=== PATIENT | female | born 1935 | race Two or more races ===

== ENCOUNTER 2024-02-18 11:28 | Inpatient (IN) | payer BC ==
[~2024-02-18] VITALS: Ht 157.5 cm; Wt 62.0 kg
[2024-02-18 12:22] LABS: Basophils # (auto) 0.1 10 ^3/uL (0-0.2); Basophils % (auto) 1.1 % (0.0-2.0); Eosinophils # (auto) 0.1 10 ^3/uL (0-0.8); Eosinophils % (auto) 2.1 % (0.0-7.0); Hematocrit 39.2 % (36.0-46.0); Hemoglobin 12.9 g/dL (12.2-16.2); Lymphocytes # (auto) 1.4 10 ^3/uL (0.4-5.4); Lymphocytes % (auto) 21.5 % (10.0-50.0); Mean Corpuscular Hemoglobin 29.5 pg (28.0-32.0); Mean Corpuscular Hgb Conc. 32.8 g/dL (32.0-36.0); Mean Corpuscular Volume 89.9 fL (80.0-100.0); Monocytes # (auto) 0.5 10 ^3/uL (0-1.3); Monocytes % (auto) 8.4 % (0.0-12.0); Neutrophils # (auto) 4.4 10 ^3/uL (1.6-8.6); Neutrophils % (auto) 66.9 % (37.0-80.0); Red Blood Cells 4.37 10^6/uL (4.0-5.20); Red Cell Distribution Width 14.3 % (11.8-14.3); White Blood Cell 6.6 10^3/uL (4.4-10.8)
[2024-02-18] MEDS: ASPirin 325 MG TAB PO ONE (12:32)
[2024-02-18 12:40] LABS: Alanine Aminotransferase 14 U/L (7-40); Albumin 4.3 g/dL (3.2-4.8); Alkaline Phosphatase 62 U/L (46-116); Anion Gap 4 (5-15); Aspartate Aminotransferase 21 U/L (13-40); BUN/Creatinine Ratio 16.1 (10.0-20.0); Bilirubin, Total 0.3 mg/dL (0.2-1.0); Blood Urea Nitrogen 27 mg/dL (9-23); Calcium 9.2 mg/dL (8.5-10.1); Carbon Dioxide 29 mmol/L (20-30); Chloride 100 mmol/L (98-107); Glucose 134 mg/dL (74-106); Potassium 3.8 mmol/L (3.5-5.1); Sodium 133 mmol/L (136-145); Total Protein 7.5 g/dL (5.7-8.2)
[2024-02-18] MEDS ORDERED: CARV-217 PO (13:27)
[2024-02-18] MEDS ORDERED: DICL1GEL73 TOP (13:27)
[2024-02-18] MEDS ORDERED: EMPA1TAB PO (13:27)
[2024-02-18] MEDS ORDERED: HYDR25TA5 PO (13:27)
[2024-02-18] MEDS ORDERED: OXYB5TAB14 PO (13:27)
[2024-02-18] MEDS ORDERED: MORPHINE SULFATE INJ 2 MG/ml SYRG IV PRN (13:30)
[2024-02-18] MEDS ORDERED: ACETAMINOPHEN 325 MG TAB PO PRN (13:30)
[2024-02-18] MEDS ORDERED: NITROGLYCERIN 0.4 MG SL TAB SL PRN (13:30)
[2024-02-18 13:41] LABS: Triglycerides 178 mg/dL (< 150)
[2024-02-18 13:42] LABS: LDL Cholesterol 134 mg/dL (< 100)
[2024-02-18 13:43] LABS: Cholesterol 196 mg/dL (< 200); HDL Cholesterol 46 mg/dL (40-59)
[2024-02-18] MEDS: SODIUM CHLORIDE 0.9% 1,000 ML IV SCH (16:35)
[2024-02-18] MEDS: DICLOFENAC SODIUM 2% TOP SCH (18:00)
[2024-02-18 18:32] LABS: Urine Bacteria None Seen /hpf (None Seen)
[2024-02-18 18:59] LABS: Urine Blood Negative /uL (Negative); Urine Clarity Clear (Clear); Urine Color Light-Yellow (Yellow); Urine Protein, UAD Negative (Negative); Urine Specific Gravity 1.013 (1.001-1.035); Urine Urobilinogen Normal (Negative); Urine WBC <1 /hpf (0 - 5); Urine pH 5.5 (5.0-9.0)
[2024-02-18] MEDS ORDERED: LORazepam 2MG/ML-1ML VIAL IV PRN (21:30)
[2024-02-18] MEDS: ATORVASTATIN 20 MG TAB PO SCH (21:30)
[2024-02-18] MEDS: CARVEDILOL 12.5 MG TAB PO SCH (21:31)
[2024-02-18] MEDS: HEPARIN SODIUM (PORCINE) 5000 UNITS/ML 1ML VIAL SC SCH (21:32)
[2024-02-18 23:04] VITALS: BP 163/52; PULSE 60; RESP 18; TEMP 97.9; O2SAT 98
[2024-02-19] VITALS (8 sets, daily range): BP systolic 108–165; BP diastolic 34–59; PULSE 57–74; RESP 16–18; TEMP 97.4–98.3; O2SAT 95–99
[2024-02-19] MEDS: hydrALAZINE HCL 20 MG/ML VL IV PRN (01:32)
[2024-02-19 06:48] LABS: Basophils # (auto) 0.1 10 ^3/uL (0-0.2); Eosinophils # (auto) 0.2 10 ^3/uL (0-0.8); Eosinophils % (auto) 3.3 % (0.0-7.0); Lymphocytes # (auto) 1.3 10 ^3/uL (0.4-5.4); Lymphocytes % (auto) 24.2 % (10.0-50.0); Mean Corpuscular Hgb Conc. 33.3 g/dL (32.0-36.0); Mean Corpuscular Volume 90.3 fL (80.0-100.0); Monocytes # (auto) 0.5 10 ^3/uL (0-1.3); Monocytes % (auto) 10.5 % (0.0-12.0); Neutrophils # (auto) 3.2 10 ^3/uL (1.6-8.6); Nucleated Red Blood Cells % 0.1 %; Red Blood Cells 3.99 10^6/uL (4.0-5.20); Red Cell Distribution Width 14.5 % (11.8-14.3); White Blood Cell 5.2 10^3/uL (4.4-10.8)
[2024-02-19 07:04] LABS: Alkaline Phosphatase 50 U/L (46-116); Anion Gap 7 (5-15); BUN/Creatinine Ratio 17.7 (10.0-20.0); Blood Urea Nitrogen 28 mg/dL (9-23); Calcium 8.6 mg/dL (8.5-10.1); Carbon Dioxide 25 mmol/L (20-30); Chloride 104 mmol/L (98-107); Glucose 114 mg/dL (74-106); Potassium 3.4 mmol/L (3.5-5.1); Sodium 136 mmol/L (136-145)
[2024-02-19 07:05] LABS: Albumin 3.6 g/dL (3.2-4.8); Aspartate Aminotransferase 18 U/L (13-40)
[2024-02-19 07:06] LABS: Alanine Aminotransferase < 9 U/L (7-40); Bilirubin, Total 0.2 mg/dL (0.2-1.0); Total Protein 6.3 g/dL (5.7-8.2)
[2024-02-19] MEDS: ASPirin 81 mg TAB PO SCH (12:09)
[2024-02-19] MEDS: EMPAGLIFLOZIN 10 MG TAB PO SCH (12:26)
[2024-02-19] MEDS: hydroCHLOROthiazide 25 MG TAB PO SCH (12:27)
[2024-02-19] MEDS: OXYBUTYNIN CHL 5 MG TAB PO SCH (16:11)
[2024-02-20] VITALS (8 sets, daily range): BP systolic 133–166; BP diastolic 40–55; PULSE 60–76; RESP 16–20; TEMP 98.1–98.9; O2SAT 93–98
[2024-02-20 05:43] LABS: Anion Gap 6 (5-15); Calcium 9.1 mg/dL (8.7-10.4); Carbon Dioxide 25 mmol/L (20-30); Chloride 102 mmol/L (98-107); Potassium 3.9 mmol/L (3.5-5.1); Sodium 133 mmol/L (136-145)
[2024-02-20 05:44] LABS: Basophils # (auto) 0.1 10 ^3/uL (0-0.2); Eosinophils # (auto) 0.2 10 ^3/uL (0-0.8); Eosinophils % (auto) 3.3 % (0.0-7.0); Hematocrit 35.7 % (36.0-46.0); Hemoglobin 11.8 g/dL (12.2-16.2); Lymphocytes # (auto) 1.5 10 ^3/uL (0.4-5.4); Lymphocytes % (auto) 27.1 % (10.0-50.0); Mean Corpuscular Hemoglobin 29.7 pg (28.0-32.0); Mean Corpuscular Hgb Conc. 32.9 g/dL (32.0-36.0); Mean Corpuscular Volume 90.2 fL (80.0-100.0); Monocytes # (auto) 0.6 10 ^3/uL (0-1.3); Monocytes % (auto) 10.9 % (0.0-12.0); Neutrophils # (auto) 3.1 10 ^3/uL (1.6-8.6); Neutrophils % (auto) 57.7 % (37.0-80.0); Nucleated Red Blood Cells % 0.1 %; Red Blood Cells 3.96 10^6/uL (4.0-5.20); Red Cell Distribution Width 14.2 % (11.8-14.3); White Blood Cell 5.4 10^3/uL (4.4-10.8)
[2024-02-20 05:50] LABS: BUN/Creatinine Ratio 17.2 (10.0-20.0); Blood Urea Nitrogen 28 mg/dL (9-23); Glucose 131 mg/dL (74-106)
[2024-02-20] MEDS ORDERED: ATOR40TA52 PO (09:21)
[2024-02-20] MEDS ORDERED: ASPI-325 PO (09:21)
== END 2024-02-20 12:11 | disposition home or self-care (01) | DRG 67 ==
LOC: ER 11:28 → TELE 13:30 → TELE-WESTW 13:30
PROVIDERS: ADMIT Nurse Practitioner Family; ATTEND Nurse Practitioner Family
DX: I65.21 Occlusion and stenosis of right carotid artery (principal); N17.0 Acute kidney failure with tubular necrosis; I11.0 Hypertensive heart disease with heart failure; I50.9 Heart failure, unspecified; F17.200 Nicotine dependence, unspecified, uncomplicated; E11.65 Type 2 diabetes mellitus with hyperglycemia; F45.9 Somatoform disorder, unspecified; Z79.899 Other long term (current) drug therapy; Z88.0 Allergy status to penicillin; Z95.810 Presence of automatic (implantable) cardiac defibrillator; Z79.82 Long term (current) use of aspirin; Z83.3 Family history of diabetes mellitus
CPT/HCPCS: 36415; 70450; 71045; 80048; 80053; 80061; 81001; 82962; 83036; 83735; 83930; 84443; 84484; 85025; 93005; 93886; 95819; 97110; 97116; 97163; G0378

== ENCOUNTER 2025-04-16 17:23 | Inpatient (IN) | payer BC, MEDICARE, OTHER ==
[~2025-04-16] VITALS: Ht 154.9 cm; Wt 57.7 kg
[~2025-04-16 17:23] MED LIST: ASPI-325 PO; ATOR40TA52 PO; CARV-217 PO; DICL1GEL73 TOP; EMPA1TAB PO; HYDR25TA5 PO; OXYB5TAB14 PO
[2025-04-16] MEDS: SODIUM CHLORIDE 0.9% 500 ML IV ONE (17:45)
--- NOTE | 2025-04-16 17:47 | ED.PDOC ---
History of Present Illness HPI Comments 89-year-old female who comes in with the chief complaint off bilateral flank pain. The patient denies any lysis diarrhea but the patient's is having a vomiting. The patient denies any dysuria or hematuria. The patient also denies any fever or chills. The patient states that the pain is in the bilateral flank area and has been going on for 1 week but worsened over the past 3 days. She is having some constipation and states that she did have a bowel movement with no significant relief of pain. The patient states that the pain as a 7/10. She was able to ambulate into the emergency department without any difficulty. Chief Complaint: Flank Pain Time Seen by MD: 17:26 Primary Care Provider: Jadiel Robertson Notes: Nurses Notes, Medications, Allergies (Allergies to penicillin) Allergies: Coded Allergies: Penicillins (Verified Allergy, Unknown, 02/18/24) Home Meds Active Scripts Atorvastatin Calcium (ATORVASTATIN CALCIUM) 40 Mg Tab, 40 MG PO DAILY for 90 Days, #90 TAB Prov:ALYSHA PIÑA MD 02/20/24 Aspirin (Aspirin Low Dose) 81 Mg Tab, 81 MG PO DAILY for 90 Days, #90 TAB Prov:ALYSHA PIÑA MD 02/20/24 Reported Medications Diclofenac Sodium (Topical) (Diclofenac Sodium) 1 % Gel, 1 APPLIC TOP QID 02/18/24 Oxybutynin Chloride (Oxybutynin Chloride) 5 Mg Tab, 1 TAB PO DAILY 02/18/24 Hctz (Hydrochlorothiazide) 25 Mg Tab, 1 TAB PO DAILY 02/18/24 Carvedilol (Coreg) 25 Mg Tab, 1 TAB PO BID 02/18/24 Empagliflozin (Jardiance) 10 Mg Tab, 1 TAB PO DAILY 02/18/24 Information Source: Patient Mode of Arrival: Ambulatory Severity: Moderate Timing: Days Duration: Since onset Prehospital treatment: None Location: Bilateral flank pain Past Medical History PAST MEDICAL HISTORY: DM, HTN Surgical History: Hysterectomy, Pacemaker, Tonsillectomy HOT KNIFE CUTTER History: Denies all HOT KNIFE CUTTER Hx Family History Family History: No family hx of Cancer, No family hx of DM, No family hx of Heart keeley Social History Smoker: Non-Smoker Alcohol: Denies ETOH Use Drugs: Denies Drug Use Lives In: Home Constitutional: reports: weakness; denies: chills, diaphoresis, fatigue, fever, malaise, sweats, others EENTM: denies: blurred vision, double vision, ear bleeding, ear discharge, ear drainage, ear pain, ear ringing, eye pain, eye redness, hearing loss, mouth pain, mouth swelling, nasal discharge, nose bleeding, nose congestion, nose pain, photophobia, tearing, throat pain, throat swelling, voice changes, others Respiratory: denies: cough, hemoptysis, orthopnea, SOB at rest, shortness of breath, SOB with excertion, stridor, wheezing, others Cardiovascular: denies: chest pain, dizzy spells, diaphoresis, Dyspnea on exertion, edema, irregular heart beat, left arm pain, lightheadedness, palpitations, PND, syncope, others Gastrointestinal: denies: abdomen distended, abdominal pain, blood streaked bowels, constipated, diarrhea, dysphagia, difficulty swallowing, hematemesis, melena, nausea, poor appetite, poor fluid intake, rectal bleeding, rectal pain, vomiting, others Genitourinary: reports: flank pain; denies: abnormal vagina bleeding, burning, dyspareunia, dysuria, frequency, hematuria, incontinence, pain, , vagina discharge, urgency, others Neurological: denies: dizziness, fainting, headache, left sided numbness, left sided weakness, numbness, paresthesia, pre-existing deficit, right sided numbness, right sided weakness, seizure, speech problems, tingling, tremors, weakness, others Musculoskeletal: denies: back pain, gout, joint pain, joint swelling, muscle pain, muscle stiffness, neck pain, others Integumetry: denies: bruises, change in color, change in hair/nails, dryness, laceration, lesions, lumps, rash, wounds, others Allergic/Immunocompromised: denies: Difficulty Healing, Frequent Infections, Hives, Itching, others Hematologic/Lymphatic: denies: anemia, blood clots, easy bleeding, easy bruising, swollen glands, others Endocrine: denies: excessive hunger, excessive sweating, excessive thirst, excessive urination, flushing, intolerance to cold, intolerance to heat, unexplained weight gain, unexplained weight loss, others Psychiatric: denies: anxiety, bipolar disorder, depression, hopeless, panic disorder, schizophrenia, sleepless, suicidal, others Physical Exam General Appearance: Moderate Distress HEENT: Normal ENT Inspection, Pharynx Normal, TMs Normal Neck: Full Range of Motion, Non-Tender, Normal, Normal Inspection Respiratory: Chest Non-Tender, Lungs Clear, No Accessory Muscle Use, No Respiratory Distress, Normal Breath Sounds Cardiovascular: No Edema, No JVD, No Murmur, No Gallop, Normal Peripheral Pulses, Regular Rate/Rhythm Breast Exam: Deferred Gastrointestinal: No Organomegaly, Non Tender, No Pulsatile Mass, Normal Bowel Sounds, Soft Genitalia: Deferred Pelvic: Deferred Rectal: Deferred Extremities: No calf tenderness, Normal capillary refill, Normal inspection, Normal range of motion, Non-tender, No pedal edema Musculoskeletal : Location: Bilateral Extremity Location: Back Apperance: Limited ROM, Tenderness: Moderate Neurologic: Alert, replenishment specialist II-XII nml as Tested, No Motor Deficits, Normal Affect, Normal Mood, No Sensory Deficits Cerebellar Function: Normal Reflexes: Normal Skin: Dry, Normal Color, Warm Lymphatic: No Adenopathy Was a procedure done? Was a procedure done?: No Differential Dx Considerations may include: Kidney stones, UTI, generalized weakness, musculoskeletal pain X-Ray, Labs, Meds, VS Vital Signs Date Time Temp Pulse Resp B/P (MAP) Pulse Ox O2 Delivery O2 Flow Rate FiO2 04/16/25 19:22 96 Room Air* 0 21 04/16/25 18:42 62 18 135/80 (98) 96 04/16/25 18:42 62 18 98 Room Air 04/16/25 17:40 98.7 61 16 168/61 (96) 97 98.7 Lab Test 04/16/25 17:55 04/16/25 17:53 04/16/25 17:38 Range/Units Urine Color Colorless Yellow Urine Clarity Turbid H Clear Urine pH 6.0 5.0-9.0 Urine Specific [place] 1.015 1.001-1.035 Urine Protein Negative Negative Urine Ketones Negative Negative Urine Blood Negative Negative /uL Urine Nitrite Negative Negative Urine Bilirubin Negative Negative Urine Urobilinogen Normal Negative mg/dL Urine Leukocyte Esterase 3+ Negative /uL Urine RBC 4 0 - 4 /hpf Urine Microscopic WBC 571 H 0-5 /HPF Urine Squamous Epithelial Cells Few <5 /hpf Urine Bacteria Few H None Seen /hpf Urine Glucose 4+ H Normal mg/dL White Blood Count 8.0 4.4-10.8 10^3/uL Red Blood Count 4.51 4.0-5.20 10^6/uL Hemoglobin 13.4 12.2-16.2 g/dL Hematocrit 40.2 36.0-46.0 % Mean Corpuscular Volume 89.3 80.0-100.0 fL Mean Corpuscular Hemoglobin 29.8 28.0-32.0 pg Mean Corpuscular Hemoglobin Concent 33.4 32.0-36.0 g/dL Red Cell Distribution Width 14.5 H 11.8-14.3 % Platelet Count 266 140-450 10^3/uL Mean Platelet Volume 8.2 6.9-10.8 fL Neutrophils (%) (Auto) 73.2 37.0-80.0 % Lymphocytes (%) (Auto) 13.0 10.0-50.0 % Monocytes (%) (Auto) 12.5 H 0.0-12.0 % Eosinophils (%) (Auto) 0.8 0.0-7.0 % Basophils (%) (Auto) 0.5 0.0-2.0 % Neutrophils # (Auto) 5.8 1.6-8.6 10 ^3/uL Lymphocytes # (Auto) 1.0 0.4-5.4 10 ^3/uL Monocytes # (Auto) 1.0 0-1.3 10 ^3/uL Eosinophils # (Auto) 0.1 0-0.8 10 ^3/uL Basophils # (Auto) 0 0-0.2 10 ^3/uL Nucleated Red Blood Cells 0.0 % Sodium Level 132 L 136-145 mmol/L Potassium Level 3.0 L 3.5-5.1 mmol/L Chloride Level 97 L 98-107 mmol/L Carbon Dioxide Level 29 20-31 mmol/L Anion Gap 6 5-15 Blood Urea Nitrogen 41 H 9-23 mg/dL Creatinine 2.16 H 0.550-1.02 mg/dL Glomerular Filtration Rate Calc 21 >90 mL/min BUN/Creatinine Ratio 19.0 10.0-20.0 Serum Glucose 200 H 74-106 mg/dL Calcium Level 9.3 8.7-10.4 mg/dL POC Glucose 202 H 70-106 mg/dl Current Medications Medications (Trade) Dose Ordered Sig/Red Route Start Time Stop Time Status Last Admin Sodium Chloride 500 ml @ 500 mls/hr Q1H ONCE IV 04/16/25 17:45 04/16/25 18:44 DC 04/16/25 17:45 Ketorolac Tromethamine (Toradol Injection) 15 mg ONCE ONCE IV 04/16/25 17:45 04/16/25 17:46 DC 04/16/25 18:51 IV Hep-Lock was established. The patient was given a 500 cc bolus of normal saline while the patient was given Toradol 15 mg IV push CBC he was at home shows hypokalemia at 3.0 chloride of 70 mother stated At this time, began to get an abdomen and pelvis shows: IMPRESSION: Marked gallbladder distention. No sizable, radiopaque cholelithiasis identified. Ultrasound may be considered to further evaluate. Otherwise no bowel obstruction, free intraperitoneal air/fluid or sizable inflammatory collections identified on this noncontrast examination. The patient is being given potassium of the K rider online patient has been admitted Images Reviewed?: Images reviewed and evaluated by me Time of 1ST Reevaluation: 17:51 Reevaluation 1ST: Unchanged Patient Education/Counseling: Diagnosis, Treatment, Prognosis Family Education/Counseling: No Family Present Departure 1 Departure Time of Disposition: 20:35 Impression: Primary Impression: Intractable abdominal pain Additional Impressions: Cholelithiasis Qualified Codes: K80.20 - Calculus of gallbladder without cholecystitis without obstruction Hypokalemia Dehydration Disposition: 09 ADMITTED INPATIENT Admit to: [facility] Condition: Fair Critical Care Note Critical Care Time?: No Stability Stability form required: Yes Unstable for transfer: ED Physician Assesment (Clinical assesment) Heart Score Heart Score: Heart Score Response (Comments) Value History N/A 0 EKG N/A 0 Age N/A 0 Risk Factors N/A 0 Troponin N/A 0 Total 0 KELSI AIKEN MD Apr 16, 2025 17:47
[2025-04-16 18:10] LABS: Basophils # (auto) 0 10 ^3/uL (0-0.2); Basophils % (auto) 0.5 % (0.0-2.0); Eosinophils # (auto) 0.1 10 ^3/uL (0-0.8); Eosinophils % (auto) 0.8 % (0.0-7.0); Hematocrit 40.2 % (36.0-46.0); Hemoglobin 13.4 g/dL (12.2-16.2); Mean Corpuscular Hemoglobin 29.8 pg (28.0-32.0); Mean Corpuscular Hgb Conc. 33.4 g/dL (32.0-36.0); Mean Corpuscular Volume 89.3 fL (80.0-100.0); Monocytes % (auto) 12.5 % (0.0-12.0); Neutrophils # (auto) 5.8 10 ^3/uL (1.6-8.6); Neutrophils % (auto) 73.2 % (37.0-80.0); Platelet Count (auto) 266 10^3/uL (140-450); Red Blood Cells 4.51 10^6/uL (4.0-5.20); Red Cell Distribution Width 14.5 % (11.8-14.3)
[2025-04-16 18:26] LABS: Anion Gap 6 (5-15); Carbon Dioxide 29 mmol/L (20-31)
[2025-04-16 18:27] LABS: Calcium 9.3 mg/dL (8.7-10.4)
[2025-04-16] MEDS: KETOROLAC TROMETH 30 MG/ML 1ML VIAL IV ONE (18:51)
[2025-04-16 19:00] LABS: Urine Bacteria FEW /hpf (None Seen); Urine Blood Negative /uL (Negative); Urine Clarity Turbid (Clear); Urine Color Colorless (Yellow); Urine Protein, UAD Negative (Negative); Urine Specific Gravity 1.015 (1.001-1.035); Urine Squamous Epithelial Cell FEW /hpf (<5); Urine Urobilinogen Normal (Negative); Urine WBC 571 /HPF (0-5)
[2025-04-16 19:01] LABS: Blood Urea Nitrogen 41 mg/dL (9-23); Chloride 97 mmol/L (98-107); Glucose 200 mg/dL (74-106); Sodium 132 mmol/L (136-145)
[2025-04-16 19:22] VITALS: O2SAT 96
--- NOTE | 2025-04-16 20:30 | DVH ---
CT SCAN ABDOMEN AND PELVIS WITHOUT CONTRAST CLINICAL HISTORY: pain TECHNIQUE: Helical axial images are obtained from the lung bases through the pelvis without oral cont rast. No intravenous contrast was administered. Coronal and sagittal reformatted images were generate d from thin section reconstructions. One or more of the following radiation dose reduction techniques were used for this examination: automated exposure control, adjustment of the mA and/or kV according to patient size, use of iterative reconstruction technique. COMPARISON: None FINDINGS: LOWER THORAX: Imaged lung bases are grossly clear. ABDOMEN AND PELVIS: Evaluation of visceral and vascular structures is limited due to lack of contrast administration. As visualized, the unenhanced liver, spleen, pancreas and adrenals appear grossly unremarkable. The g allbladder is markedly distended. No sizable, radiopaque cholelithiasis identified. No hydroureteronephrosis or sizable, obstructing urinary tract calculi. Advanced aortoiliac atherosclerotic calcifications. No evidence of abdominal aortic aneurysm. Small hiatal hernia. No evidence of bowel obstruction. Visualized appendix appears normal caliber. No free intraperitoneal air or fluid identified. No sizable bladder calculus. Multilevel degenerative changes of the thoracolumbar spine. Bilateral pars defects at L5-S1. IMPRESSION: Marked gallbladder distention. No sizable, radiopaque cholelithiasis identified. Ultrasound may be co nsidered to further evaluate. Otherwise no bowel obstruction, free intraperitoneal air/fluid or sizable inflammatory collections id entified on this noncontrast examination. A few other findings as above.
[2025-04-16] MEDS: SODIUM CHLORIDE 0.9% 1,000 ML IV ONE (21:45)
[2025-04-16] MEDS ORDERED: HYDROcodone-ACET 5/325MG TAB PO PRN (21:45)
[2025-04-16] MEDS: InsuLIN REG 1unit/0.01ml Soln (100units/ml) SC SCH (22:00)
[2025-04-16] MEDS: CARVEDILOL 12.5 MG TAB PO SCH (22:00)
[2025-04-16] MEDS ORDERED: DEXTROSE (50%) 50ML SYRG IV PRN (22:00)
[2025-04-16] MEDS: ACCU-CHEK COMFORT CURVE STRIP VI SCH (22:00)
--- NOTE | 2025-04-16 22:01 | DVHHPRES ---
History of Present Illness Resident Creating Document: PGE CASTREJON RESIDENT History of Present Illness This is an 89-year-old female with past medical history of primary hypertension, type 2 diabetes mellitus, pacemaker placement (has a appointment for April 29 to check battery), CKD stage IIIB, dyslipidemia, who presented to the ED brought by her daughter due to bilateral lower back flank pain. The patient states that symptoms started three days ago consistent with bilateral flank pain that is rated as a 9/10 on the pain scale and is described as a dual pain localized in the flanks with no specific pattern of radiation. The patient also reported recent constipation but had two bowel movements earlier today before coming to the ED. The patient denies fever, chills, dysuria, burning sensation while urinating, chest pain, shortness of breath or any other associated symptoms. Initial labs showed a normal CBC, BNP showed hypokalemia and a creatinine of 2.26 and BUN of 41. Urinalysis came back suggesting UTI. CT scan of the abdomen was performed showing marked gallbladder distention with cholelithiasis but no evidence of cholecystitis. We will order abdominal ultrasound with renal protocol and focus in the gallbladder as well. We will start the patient on IV ceftriaxone, IV fluids, pain medications and we will admit for further assessment and management. Surgical history: Hysterectomy, pacemaker placement, tonsillectomy Home medications: Lantus 20-22 units daily, aspirin 81 mg daily, carvedilol 12.5 mg b.i.d., atorvastatin 20 mg daily, ezetimibe 10 mg daily, empagliflozin 10 mg daily, hydrochlorothiazide 25 mg daily, Jardiance 25 mg daily, oxybutynin 5 mg daily, pantoprazole 20 mg daily. Cardiovascular: HTN, hyperipidemia GI: Constipation Renal/: Chronic renal insuff Endocrine: Diabetes Past Surgical History: Hysterectomy, Other (Tonsillectomy and pacemaker placement) Family History: None Smoke: No ALCOHOL: none Drugs: None Lives: with Family Domestic Violence: Neg Review of Systems Constitutional: No: Fever, Chills, Sweats, Weakness, Malaise, Other Eyes: No: Pain, Vision change, Conjunctivae inflammation, Eyelid inflammation, Other, Redness ENT: No: Ear pain, Ear discharge, Nose pain, Nose discharge, Nose congestion, Mouth pain, Mouth swelling, Throat pain, Throat swelling, Other Respiratory: No: Cough, Dry, Shortness of breath, SOB with excertion, Wheezing, Hemoptysis, Pleuritic Pain, Sputum, Wheezing, Other Cardiovascular: No: Chest Pain, Palpitations, Orthopnea, Paroxysmal Noc. Dyspnea, Edema, Lt Headedness, Other Gastrointestinal: Constipation; No: Nausea, Vomiting, Abdominal Pain, Diarrhea, Melena, Hematochezia, Other Genitourinary: No Dysuria, No Frequency, No Incontinence, No Hematuria, No Retention, No Other Musculoskeletal: neck pain, shoulder pain, back pain Skin: No: Rash, Lesions, Jaundice, Bruising, Other Neurological: Weakness; No: Numbness, Incoordination, Change in speech, Confusion, Seizures, Other Allergies: Coded Allergies: Penicillins (Verified Allergy, Unknown, 02/18/24) Medications Current Medications Medications Dose Ordered Sig/Red Route Start Time Stop Time Status Last Admin Dose Admin Acetaminophen 650 mg Q6HP PRN PO 04/16/25 21:45 UNV Acetaminophen/ Hydrocodone Bitart 1 tab Q4HP PRN PO 04/16/25 21:45 UNV Enoxaparin Sodium 40 mg DAILY SC 04/17/25 10:00 UNV Exam Vital Signs Vital Signs Date Time Temp Pulse Resp B/P (MAP) Pulse Ox O2 Delivery O2 Flow Rate FiO2 04/16/25 19:22 96 Room Air* 0 21 04/16/25 18:42 62 18 135/80 (98) 04/16/25 17:40 98.7 98.7 General Appearance: Alert, Oriented X3, Cooperative, No acute distress HEENT: Atraumatic, PERRLA, EOMI, Mucous membr. moist/pink Respiratory: Clear to auscultation, Normal air movement Cardiovascular: Regular rate, Normal S1, Normal S2, No murmurs Abdominal: Normal bowel sounds, Soft, No tenderness, No hepatospenomegaly Extremities: No clubbing, No cyanosis, No edema, Normal pulses, No tenderness/swelling Skin: No rashes, No breakdown, No significant lesion Neuro: Normal gait, Normal speech, Strength at 5/5 X4 ext, Normal tone, Sensation intact, Cranial nerves 3-12 NL, Reflexes 2+ Psych/Mental Status: Mental status NL, Mood NL Labs/Xrays Labs Test 04/16/25 17:55 04/16/25 17:53 04/16/25 17:38 Range/Units Urine Color Colorless Yellow Urine Clarity Turbid H Clear Urine pH 6.0 5.0-9.0 Urine Specific [place] 1.015 1.001-1.035 Urine Protein Negative Negative Urine Ketones Negative Negative Urine Blood Negative Negative /uL Urine Nitrite Negative Negative Urine Bilirubin Negative Negative Urine Urobilinogen Normal Negative mg/dL Urine Leukocyte Esterase 3+ Negative /uL Urine RBC 4 0 - 4 /hpf Urine Microscopic WBC 571 H 0-5 /HPF Urine Squamous Epithelial Cells Few <5 /hpf Urine Bacteria Few H None Seen /hpf Urine Glucose 4+ H Normal mg/dL White Blood Count 8.0 4.4-10.8 10^3/uL Red Blood Count 4.51 4.0-5.20 10^6/uL Hemoglobin 13.4 12.2-16.2 g/dL Hematocrit 40.2 36.0-46.0 % Mean Corpuscular Volume 89.3 80.0-100.0 fL Mean Corpuscular Hemoglobin 29.8 28.0-32.0 pg Mean Corpuscular Hemoglobin Concent 33.4 32.0-36.0 g/dL Red Cell Distribution Width 14.5 H 11.8-14.3 % Platelet Count 266 140-450 10^3/uL Mean Platelet Volume 8.2 6.9-10.8 fL Neutrophils (%) (Auto) 73.2 37.0-80.0 % Lymphocytes (%) (Auto) 13.0 10.0-50.0 % Monocytes (%) (Auto) 12.5 H 0.0-12.0 % Eosinophils (%) (Auto) 0.8 0.0-7.0 % Basophils (%) (Auto) 0.5 0.0-2.0 % Neutrophils # (Auto) 5.8 1.6-8.6 10 ^3/uL Lymphocytes # (Auto) 1.0 0.4-5.4 10 ^3/uL Monocytes # (Auto) 1.0 0-1.3 10 ^3/uL Eosinophils # (Auto) 0.1 0-0.8 10 ^3/uL Basophils # (Auto) 0 0-0.2 10 ^3/uL Nucleated Red Blood Cells 0.0 % Sodium Level 132 L 136-145 mmol/L Potassium Level 3.0 L 3.5-5.1 mmol/L Chloride Level 97 L 98-107 mmol/L Carbon Dioxide Level 29 20-31 mmol/L Anion Gap 6 5-15 Blood Urea Nitrogen 41 H 9-23 mg/dL Creatinine 2.16 H 0.550-1.02 mg/dL Glomerular Filtration Rate Calc 21 >90 mL/min BUN/Creatinine Ratio 19.0 10.0-20.0 Serum Glucose 200 H 74-106 mg/dL Calcium Level 9.3 8.7-10.4 mg/dL POC Glucose 202 H 70-106 mg/dl Assessment/Plan Assessment/Plan Assessment/plan Acute bilateral flank pain, rule out pyelonephritis/hydronephrosis Acute cholelithiasis, R/O cholecystitis Acute UTI YADIRA on CKD stage IIIB likely due to vasomotor nephropathy Hypokalemia Acute constipation Primary hypertension Type 2 diabetes mellitus History of pacemaker placement Plan -ordered abdominal ultrasound focus on gallbladder to rule out cholecystitis and renal protocol to rule out hydronephrosis -start IV fluids NS 0.9% at 75 cc/hour -start IV ceftriaxone -replace potassium and monitor electrolytes closely -start lactulose 30 ml daily -Start mild sliding scale insulin and Lantus 15units daily -Restart carvedilol 12.5mg BID, Aspirin 81mg daily -[place] and acetaminophen PRN for pain modulation Goals of care discussed with the patient and daughter at bedside, full code Plan discussed with Dr. Pizarro Plan discussed with: Patient, Daughter My Orders Orders - PEG CASTREJON Procedure Category Date Status Time Admit ADMIT 04/16/25 Transmitted 21:31 Code Status CODE 04/16/25 Transmitted 21:31 Vital Signs SKYLER 04/16/25 In Process 21:31 Review Orders With SKYLER 04/16/25 In Process Adm. 21:31 Encourage Activity As SKYLER 04/16/25 In Process Tolerate 21:31 Consistent DIET 04/17/25 Transmitted Carb(Ccho)Diabetes Breakfast Acetaminophen Tablet PHA 04/16/25 Logged (Tylenol Tablet) 21:45 Notify Of Changes SKYLER 04/16/25 In Process From Base 21:31 Advance Directive SKYLER 04/16/25 In Process 21:31 Basic Metabolic Panel LAB 04/17/25 Verified 04:00 Complete Blood Count LAB 04/17/25 Verified 04:00 Lipid Panel LAB 04/16/25 In Process 21:31 Patient Condition ORDERS 04/16/25 Transmitted 21:31 Allergies SKYLER 04/16/25 In Process 21:31 Hydrocodone-Acet PHA 04/16/25 Logged 5/325mg Tab ([place] 21:45 Drug Screen LAB 04/16/25 Logged 21:31 Hemoglobin A1c LAB 04/16/25 In Process 21:31 Enoxaparin Sodium PHA 04/17/25 Logged (Lovenox) 10:00 Abdomen Limited US 04/16/25 Logged 21:38 NS PHA 04/16/25 Transmitted 21:45 Date of Service: Apr 16, 2025 Billing Provider: GURWINDER PIZARRO MD Common Visit Codes: 50493-[id number] INP/OBS CARE (HIGH) Secondary Visit Codes: 13946-[id number] CARE PLAN 30 MINUTES PEG CASTREJON RESIDENT Apr 16, 2025 22:01
[2025-04-16 22:12] LABS: LDL Cholesterol 85 mg/dL (< 100)
[2025-04-16 22:14] LABS: Cholesterol 141 mg/dL (< 200)
[2025-04-16 22:16] LABS: HDL Cholesterol 32 mg/dL (40-59); Triglycerides 179 mg/dL (< 150)
[2025-04-16 22:16] LABS: Amphetamine Screen, Urine Neg (NEGATIVE); Barbiturate Scree,Urine Neg (NEGATIVE); Opiate Scree,Urine Neg (NEGATIVE); Phencyclidine Screen, Urine Neg (NEGATIVE)
[2025-04-16 22:17] LABS: Benzodiazephine Screen, Urine Neg (NEGATIVE); Cannabinoid Screen, Urine Neg (NEGATIVE); Cocaine Screen, Urine Neg (NEGATIVE)
[2025-04-16 23:12] VITALS: PULSE 78; RESP 18; O2SAT 96
[2025-04-17] VITALS (7 sets, daily range): BP systolic 137–155; BP diastolic 55–72; PULSE 66–87; RESP 17–20; TEMP 97.9–99.5; O2SAT 95–99
[2025-04-17] MEDS: POTASSIUM CHL 20MEQ/100ML 100 ML IV ONE (00:15)
[2025-04-17] MEDS: LACTULOSE 20Gm/30ML SOLN PO SCH (00:16)
[2025-04-17] MEDS: cefTRIAXone 1GM/50ML D5W 50 ML IV ONE (00:16)
[2025-04-17] MEDS: INSULIN LANTUS (GLARGINE) 1 /0.01ml (100units/ml) SC SCH (00:24)
--- NOTE | 2025-04-17 00:28 | DVH ---
INDICATION: R/O hydronephrosis or cholecystitis TECHNIQUE: Multiple real-time sonographic images of the abdomen were obtained. COMPARISON: None FINDINGS: The liver is homogenous in echogenicity. The liver measures 13cm. No intrahepatic biliary ductal dilatation is noted. The gallbladder wall measures 0.3 cm and is unremarkable. Distended gallbladder with biliary sludge. No evidence of gallstones. Negative sonographic abrams's sign. The common duct measures 1.0 cm and is unremarkable. No pericholecystic fluid is noted. The right kidney measures 9.7 cm. No hydronephrosis. The left kidney measures 8.8 cm. No hydronephr osis. The spleen measures 9.4 cm, within normal limits. The echogenicity is within normal limits. The pancreas is not well visualized due to obscuration from bowel gas. The visualized portions of the IVC and aorta are grossly unremarkable. IMPRESSION: Distended gallbladder with layering sludge. Dilated common bile duct. Consider further evaluation wit h MRCP or HIDA scan if clinically indicated.
[2025-04-17] MEDS: NIFEdipine ER 30 MG TAB PO ONE (00:30)
[2025-04-17 06:09] LABS: Basophils # (auto) 0 10 ^3/uL (0-0.2); Basophils % (auto) 0.5 % (0.0-2.0); Eosinophils # (auto) 0.1 10 ^3/uL (0-0.8); Eosinophils % (auto) 1.3 % (0.0-7.0); Hematocrit 38.2 % (36.0-46.0); Hemoglobin 13.2 g/dL (12.2-16.2); Lymphocytes # (auto) 1.1 10 ^3/uL (0.4-5.4); Lymphocytes % (auto) 13.8 % (10.0-50.0); Mean Corpuscular Hemoglobin 30.9 pg (28.0-32.0); Mean Corpuscular Hgb Conc. 34.4 g/dL (32.0-36.0); Mean Corpuscular Volume 89.8 fL (80.0-100.0); Monocytes % (auto) 13.2 % (0.0-12.0); Neutrophils # (auto) 5.5 10 ^3/uL (1.6-8.6); Neutrophils % (auto) 71.2 % (37.0-80.0); Platelet Count (auto) 248 10^3/uL (140-450); Red Blood Cells 4.26 10^6/uL (4.0-5.20); Red Cell Distribution Width 14.2 % (11.8-14.3); White Blood Cell 7.7 10^3/uL (4.4-10.8)
[2025-04-17 06:20] LABS: Chloride 99 mmol/L (98-107)
[2025-04-17 06:22] LABS: Anion Gap 9 (5-15); Carbon Dioxide 26 mmol/L (20-31)
[2025-04-17 06:27] LABS: BUN/Creatinine Ratio 19.9 (10.0-20.0)
[2025-04-17 06:33] LABS: Glucose 51 mg/dL (74-106); Sodium 134 mmol/L (136-145)
[2025-04-17 06:34] LABS: Blood Urea Nitrogen 37 mg/dL (9-23); Calcium 8.6 mg/dL (8.7-10.4)
[2025-04-17] MEDS: POTASSIUM EFFERVESENT TAB 25 MEQ PO ONE (07:15)
--- NOTE | 2025-04-17 07:17 | DVH ---
EXAM: XR Chest, 1 View CLINICAL INDICATION: eval lung parenchyma TECHNIQUE: Frontal view of the chest. COMPARISON: XY CHEST PORTABLE on DOS: 02/18/24 FINDINGS: LUNGS AND PLEURAL SPACES: Unremarkable. No consolidation. No pneumothorax. HEART: Unremarkable. No cardiomegaly. MEDIASTINUM: Unremarkable. Normal mediastinal contour. BONES/JOINTS: Unremarkable. No acute fracture. TUBES, LINES AND DEVICES: Left-sided cardiac pacemaker. OTHER FINDINGS: . . IMPRESSION: No acute cardiopulmonary process.
[2025-04-17 07:29] LABS: Albumin 3.8 g/dL (3.2-4.8); Alkaline Phosphatase 107 U/L (46-116); Anion Gap 11 (5-15); BUN/Creatinine Ratio 20.1 (10.0-20.0); Bilirubin, Total 0.3 mg/dL (0.2-1.0); Carbon Dioxide 24 mmol/L (20-31); Chloride 100 mmol/L (98-107); Magnesium 2.3 mg/dL (1.6-2.6)
[2025-04-17 07:32] LABS: Alanine Aminotransferase 95 U/L (7-40); Aspartate Aminotransferase 44 U/L (13-40); Blood Urea Nitrogen 37 mg/dL (9-23); Calcium 8.4 mg/dL (8.7-10.4); Glucose 51 mg/dL (74-106); Potassium 3.1 mmol/L (3.5-5.1); Sodium 135 mmol/L (136-145)
[2025-04-17 07:47] LABS: Total Protein 6.5 g/dL (5.7-8.2)
[2025-04-17] MEDS: D5W/SOD CHL 0.45% 1,000 ML IV SCH (08:45)
[2025-04-17] MEDS ORDERED: ENOXAPARIN SOD 40 MG/0.4 ML SYRINGE SC SCH (10:00)
[2025-04-17] MEDS: ENOXAPARIN SOD 30 MG/0.3 ML SYRINGE SC SCH (10:00)
[2025-04-17] MEDS: ASPirin 81 mg TAB PO SCH (10:00)
[2025-04-17] MEDS: cefTRIAXone 1GM/50ML D5W 50 ML IV SCH (10:23)
--- NOTE | 2025-04-17 12:28 | DVHPNRES ---
Progress Note Date Seen: Apr 17, 2025 Resident Creating Document: PANFILO VALDES RESIDENT Medical Necessity Reason Pt with a Central, PICC or Fol: No Subjective Review of Systems 89-year-old female with past medical history of primary hypertension, type 2 diabetes mellitus, pacemaker placement (has a appointment for April 29 to check battery), CKD stage IIIB, dyslipidemia, who presented to the ED brought by her daughter due to bilateral lower back flank pain. The patient states that symptoms started three days ago consistent with bilateral flank pain that is rated as a 9/10 on the pain scale and is described as a dual pain localized in the flanks with no specific pattern of radiation. The patient also reported recent constipation but had two bowel movements earlier today before coming to the ED. The patient denies fever, chills, dysuria, burning sensation while urinating, chest pain, shortness of breath or any other associated symptoms. Seen and examined at bedside, flank pain is little bit better, patient is complaining of diffuse abdominal pain. Constitutional: No: Fever, Chills, Sweats, Weakness, Malaise, Other Eyes: No: Pain, Vision change, Conjunctivae inflammation, Eyelid inflammation, Other, Redness ENT: No: Ear pain, Ear discharge, Nose pain, Nose discharge, Nose congestion, Mouth pain, Mouth swelling, Throat pain, Throat swelling, Other Respiratory: No: Cough, Dry, Shortness of breath, SOB with excertion, Wheezing, Hemoptysis, Pleuritic Pain, Sputum, Wheezing, Other Cardiovascular: No: Chest Pain, Palpitations, Orthopnea, Paroxysmal Noc. Dyspnea, Edema, Lt Headedness, Other Gastrointestinal: Constipation; No: Nausea, Vomiting, Abdominal Pain, Diarrhea, Melena, Hematochezia, Other Genitourinary: No Dysuria, No Frequency, No Incontinence, No Hematuria, No Retention, No Other Musculoskeletal: neck pain, shoulder pain, back pain Objective vital signs Vital Sign Date Time Temp Pulse Resp B/P (MAP) Pulse Ox O2 Delivery O2 Flow Rate FiO2 04/17/25 10:26 68 18 96 Room Air* 0 21 04/17/25 10:26 98.6 146/55 (85) 98.6 Total Intake and Output 04/16/25 04/16/25 04/17/25 15:00 23:00 07:00 Intake Total 575 ml 450 ml Balance 575 ml 450 ml medications Current Medications Medications Dose Ordered Sig/Red Route Start Time Stop Time Status Last Admin Dose Admin Acetaminophen 650 mg Q6HP PRN PO 04/16/25 21:45 Acetaminophen/ Hydrocodone Bitart 1 tab Q4HP PRN PO 04/16/25 21:45 Enoxaparin Sodium 40 mg DAILY SC 04/17/25 10:00 UNV Ceftriaxone Sodium 50 ml @ 100 mls/hr DAILY IV 04/17/25 10:00 04/17/25 10:23 100 MLS/HR Lactulose 30 ml DAILY PO 04/16/25 21:45 04/17/25 10:20 30 ML Aspirin 81 mg DAILY PO 04/17/25 10:00 Diagnostic Test (Pha) 1 strip ACHS 04/16/25 22:00 04/17/25 06:56 1 STRIP Insulin Human Regular ACHS SC 04/16/25 22:00 Dextrose 50 ml UD PRN IV 04/16/25 22:00 Insulin Glargine 15 units DAILY@1000 SC 04/16/25 22:00 04/17/25 00:24 15 UNITS Nifedipine 30 mg DAILY PO 04/18/25 10:00 Enoxaparin Sodium 30 mg DAILY SC 04/17/25 10:00 Dextrose/Sodium Chloride 1,000 ml @ 75 mls/hr [id number] IV 04/17/25 08:45 04/17/25 08:45 75 MLS/HR Examination GENERAL: Not in acute distress. HEENT: EOMI, Moist mucous membranes. No scleral icterus. No cervical lymphadenopathy. LUNGS: Clear to auscultation bilaterally. No accessory muscle use. CARDIOVASCULAR: Regular rate and rhythm. No murmur. No JVD. ABDOMEN: Soft, nontender and nondistended. No palpable masses. EXTREMITIES: No edema. Nontender. SKIN: No rashes or lesions. Warm. 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 Dilated common bile duct. - Pending MRCP - Stop IV fluids NS 0.9% at 75 cc/hour and start 5% DA with .45NS as blood glucose was Low (51) -Continue IV ceftriaxone - Urine culture -replaced potassium -monitor electrolytes closely - lactulose 30 ml daily -mild sliding scale insulin and Lantus 15units daily -carvedilol 12.5mg BID, Aspirin 81mg daily -[place] and acetaminophen PRN for pain modulation Goal of care discussed with patient for 29 minutes: FULL CODE Discussed Dr. Alarcon Plan discussed with: Patient My Orders My Orders Orders - PANFILO VALDES RESIDENT Procedure Category Date Status Time Npo Except For SKYLER 04/17/25 In Process Medications 08:36 Npo (Nothing By DIET 04/17/25 Transmitted Mouth) Diet Breakfast D5w/Sod Chl 0.45% PHA 04/17/25 In Process (D5w 1/2ns) 08:45 PANFILO VALDES RESIDENT Apr 17, 2025 12:28
[2025-04-18 01:00] VITALS: BP 147/68; PULSE 69; RESP 16; TEMP 98.5; O2SAT 98
[2025-04-18 05:00] VITALS: BP 147/62; PULSE 76; RESP 17; TEMP 97.9; O2SAT 97
[2025-04-18 06:38] LABS: Albumin 3.6 g/dL (3.2-4.8); Alkaline Phosphatase 102 U/L (46-116); Anion Gap 10 (5-15); Aspartate Aminotransferase 30 U/L (13-40); BUN/Creatinine Ratio 15.8 (10.0-20.0); Carbon Dioxide 24 mmol/L (20-31); Chloride 101 mmol/L (98-107); Potassium 3.5 mmol/L (3.5-5.1); Total Protein 6.4 g/dL (5.7-8.2)
[2025-04-18 06:39] LABS: Bilirubin, Total 0.3 mg/dL (0.2-1.0)
[2025-04-18 06:41] LABS: Basophils # (auto) 0 10 ^3/uL (0-0.2); Basophils % (auto) 0.5 % (0.0-2.0); Eosinophils # (auto) 0 10 ^3/uL (0-0.8); Eosinophils % (auto) 0.7 % (0.0-7.0); Hematocrit 38.8 % (36.0-46.0); Hemoglobin 12.8 g/dL (12.2-16.2); Lymphocytes # (auto) 1.2 10 ^3/uL (0.4-5.4); Lymphocytes % (auto) 19.1 % (10.0-50.0); Mean Corpuscular Hemoglobin 30.2 pg (28.0-32.0); Mean Corpuscular Hgb Conc. 32.9 g/dL (32.0-36.0); Mean Corpuscular Volume 91.9 fL (80.0-100.0); Monocytes # (auto) 0.8 10 ^3/uL (0-1.3); Neutrophils # (auto) 4.2 10 ^3/uL (1.6-8.6); Neutrophils % (auto) 66.7 % (37.0-80.0); Nucleated Red Blood Cells % 0.1 %; Platelet Count (auto) 256 10^3/uL (140-450); Red Blood Cells 4.22 10^6/uL (4.0-5.20); Red Cell Distribution Width 14.6 % (11.8-14.3); White Blood Cell 6.3 10^3/uL (4.4-10.8)
[2025-04-18 06:42] LABS: Alanine Aminotransferase 66 U/L (7-40); Blood Urea Nitrogen 25 mg/dL (9-23); Calcium 8.4 mg/dL (8.7-10.4); Glucose 119 mg/dL (74-106); Sodium 135 mmol/L (136-145)
[2025-04-18 09:00] VITALS: BP 157/55; PULSE 69; RESP 18; TEMP 98; O2SAT 96
[2025-04-18] MEDS: NIFEdipine ER 30 MG TAB PO SCH (09:39)
--- NOTE | 2025-04-18 15:35 | DVH ---
Procedure: NM NM HIDA SCAN Exam Date: 04/18/2025 11:13 AM Clinical History: R/O Cholecystitis Comparison Study: 04/16/2025 Nuclear Medicine Hepatobiliary Scan. Technique: Following the intravenous administration of 4.3 mCi of technetium 99m labeled Choletec multiple plana r abdominal planar images were obtained in anterior projection in 2 minute intervals for 60 minutes . Right lateral , anterior images obtained at 3:00 a.m.. Findings: Rapid uptake and excretion from the liver. Gallbladder is not visualized at 1 and 3 hours. Small bow el seen at approximately 26 minutes. Impression: 1. Findings consistent with cystic duct obstruction.
[2025-04-18 17:00] VITALS: BP 154/72; PULSE 73; RESP 14; TEMP 98; O2SAT 96
--- NOTE | 2025-04-18 17:02 | DVHPNRES ---
Progress Note Date Seen: Apr 18, 2025 Resident Creating Document: PANFILO VALDES RESIDENT Medical Necessity Reason Pt with a Central, PICC or Fol: No Subjective Review of Systems Complaining of mild flank pain HIDA scan shows complete cystic duct obstruction. Objective vital signs Vital Sign Date Time Temp Pulse Resp B/P (MAP) Pulse Ox O2 Delivery O2 Flow Rate FiO2 04/18/25 09:39 157/55 04/18/25 09:00 98.0 69 18 96 98.0 04/18/25 08:15 Room Air* 0 21 Total Intake and Output 04/17/25 04/17/25 04/18/25 14:59 22:59 06:59 Intake Total 50 ml 1000 ml 675 ml Output Total 350 ml Balance 50 ml 650 ml 675 ml medications Current Medications Medications Dose Ordered Sig/Red Route Start Time Stop Time Status Last Admin Dose Admin Acetaminophen 650 mg Q6HP PRN PO 04/16/25 21:45 Acetaminophen/ Hydrocodone Bitart 1 tab Q4HP PRN PO 04/16/25 21:45 Enoxaparin Sodium 40 mg DAILY SC 04/17/25 10:00 UNV Ceftriaxone Sodium 50 ml @ 100 mls/hr DAILY IV 04/17/25 10:00 04/18/25 09:43 100 MLS/HR Lactulose 30 ml DAILY PO 04/16/25 21:45 04/18/25 09:36 30 ML Aspirin 81 mg DAILY PO 04/17/25 10:00 04/18/25 09:39 81 MG Diagnostic Test (Pha) 1 strip ACHS 04/16/25 22:00 04/18/25 11:30 1 STRIP Insulin Human Regular ACHS SC 04/16/25 22:00 04/17/25 11:30 6 UNITS Dextrose 50 ml UD PRN IV 04/16/25 22:00 Insulin Glargine 15 units DAILY@1000 SC 04/16/25 22:00 04/18/25 09:42 15 UNITS Nifedipine 30 mg DAILY PO 04/18/25 10:00 04/18/25 09:39 30 MG Enoxaparin Sodium 30 mg DAILY SC 04/17/25 10:00 04/18/25 09:39 30 MG Dextrose/Sodium Chloride 1,000 ml @ 75 mls/hr [id number] IV 04/17/25 08:45 04/18/25 11:25 75 MLS/HR Examination GENERAL: Not in acute distress. HEENT: EOMI, Moist mucous membranes. No scleral icterus. No cervical lymphadenopathy. LUNGS: Clear to auscultation bilaterally. No accessory muscle use. CARDIOVASCULAR: Regular rate and rhythm. No murmur. No JVD. ABDOMEN: Soft, nontender and nondistended. No palpable masses. EXTREMITIES: No edema. Nontender. SKIN: No rashes or lesions. Warm. NEUROLOGIC: Alert and oriented X3 laboratory and microbiology Laboratory Tests 04/18/25 05:34 Test 04/18/25 05:34 Range/Units Serum Glucose 119 H 74-106 mg/dL Problem List/Assessment/Plan Problem List/Assessment/Plan # Acute bilateral flank pain, # Possible pyelonephritis. 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 Dilated common bile duct. - HIDA showing: Findings consistent with cystic duct obstruction - Consult Surgery - Stop Lantus as pt is having low blood sugar. - Stop IV fluids NS 0.9% at 75 cc/hour and start 5% DA with .45NS as blood glucose was Low (51) -Continue IV ceftriaxone - Urine culture -replaced potassium -monitor electrolytes closely - lactulose 30 ml daily -mild sliding scale insulin and Lantus 15units daily -carvedilol 12.5mg BID, Aspirin 81mg daily -[place] and acetaminophen PRN for pain modulation DVT prophylaxis: lovenox GI prophylaxis: PPI Goal of care discussed with patient for 21 minutes: FULL CODE Discussed Dr. Agnes Coates discussed with: Patient My Orders My Orders Orders - PANFILO VALDES RESIDENT Procedure Category Date Status Time Nm Hida Scan NM 04/18/25 Resulted 10:01 PANFILO VALDES RESIDENT Apr 18, 2025 17:02
[2025-04-18 20:20] VITALS: PULSE 64; RESP 16; O2SAT 97
[2025-04-18 20:59] VITALS: BP 148/59; PULSE 64; RESP 16; TEMP 97.7; O2SAT 97
[2025-04-19] VITALS (7 sets, daily range): BP systolic 137–157; BP diastolic 60–71; PULSE 64–106; RESP 16–18; TEMP 97.5–98.1; O2SAT 95–98
[2025-04-19 09:47] LABS: Basophils # (auto) 0 10 ^3/uL (0-0.2); Basophils % (auto) 0.6 % (0.0-2.0); Eosinophils # (auto) 0.1 10 ^3/uL (0-0.8); Eosinophils % (auto) 1.7 % (0.0-7.0); Hematocrit 39.1 % (36.0-46.0); Hemoglobin 13.4 g/dL (12.2-16.2); Lymphocytes % (auto) 15.3 % (10.0-50.0); Mean Corpuscular Hemoglobin 30.8 pg (28.0-32.0); Mean Corpuscular Hgb Conc. 34.4 g/dL (32.0-36.0); Mean Corpuscular Volume 89.5 fL (80.0-100.0); Monocytes # (auto) 0.8 10 ^3/uL (0-1.3); Monocytes % (auto) 11.2 % (0.0-12.0); Neutrophils # (auto) 4.9 10 ^3/uL (1.6-8.6); Neutrophils % (auto) 71.2 % (37.0-80.0); Nucleated Red Blood Cells % 0.1 %; Platelet Count (auto) 276 10^3/uL (140-450); Red Blood Cells 4.37 10^6/uL (4.0-5.20); Red Cell Distribution Width 14.2 % (11.8-14.3); White Blood Cell 6.8 10^3/uL (4.4-10.8)
[2025-04-19 10:00] LABS: Chloride 102 mmol/L (98-107); Potassium 3.6 mmol/L (3.5-5.1)
[2025-04-19 10:01] LABS: Anion Gap 8 (5-15); Carbon Dioxide 24 mmol/L (20-31)
[2025-04-19 10:02] LABS: Calcium 8.8 mg/dL (8.7-10.4)
[2025-04-19 10:06] LABS: Blood Urea Nitrogen 14 mg/dL (9-23)
[2025-04-19 10:09] LABS: Glucose 155 mg/dL (74-106); Sodium 134 mmol/L (136-145)
[2025-04-19 16:12] LABS: INR 1.13 (0.9-1.15); Partial Thromboplastin Time 36.7 SEC (24.5-34.5); Prothrombin Time 11.8 sec (9.3-11.8)
[2025-04-19 16:38] LABS: Alanine Aminotransferase 52 U/L (7-40); Albumin 3.7 g/dL (3.2-4.8); Alkaline Phosphatase 104 U/L (46-116); Anion Gap 6 (5-15); Aspartate Aminotransferase 23 U/L (13-40); BUN/Creatinine Ratio 9.8 (10.0-20.0); Bilirubin, Total 0.3 mg/dL (0.2-1.0); Blood Urea Nitrogen 13 mg/dL (9-23); Calcium 8.8 mg/dL (8.7-10.4); Carbon Dioxide 26 mmol/L (20-31); Chloride 101 mmol/L (98-107); Glucose 121 mg/dL (74-106); Potassium 3.7 mmol/L (3.5-5.1); Sodium 133 mmol/L (136-145); Total Protein 6.5 g/dL (5.7-8.2)
--- NOTE | 2025-04-19 16:53 | DVHINCON2 ---
Date of service: Apr 19, 2025 Family History: Diabetes mellitus G8 MOTHER, Onset: Patient's father is G8 FATHER, Onset: - Allergies: Coded Allergies: Penicillins (Verified Allergy, Unknown, 02/18/24) Home Meds Active Scripts Atorvastatin Calcium (ATORVASTATIN CALCIUM) 40 Mg Tab, 40 MG PO DAILY for 90 Days, #90 TAB Prov:ALYSHA PIÑA MD 02/20/24 Aspirin (Aspirin Low Dose) 81 Mg Tab, 81 MG PO DAILY for 90 Days, #90 TAB Prov:ALYSHA PIÑA MD 02/20/24 Reported Medications Diclofenac Sodium (Topical) (Diclofenac Sodium) 1 % Gel, 1 APPLIC TOP QID 02/18/24 Oxybutynin Chloride (Oxybutynin Chloride) 5 Mg Tab, 1 TAB PO DAILY 02/18/24 Hctz (Hydrochlorothiazide) 25 Mg Tab, 1 TAB PO DAILY 02/18/24 Carvedilol (Coreg) 25 Mg Tab, 1 TAB PO BID 02/18/24 Empagliflozin (Jardiance) 10 Mg Tab, 1 TAB PO DAILY 02/18/24 Vital Signs Vital Signs Date Time Temp Pulse Resp B/P (MAP) Pulse Ox O2 Delivery O2 Flow Rate FiO2 04/19/25 13:00 98.1 64 16 157/60 (92) 98 98.1 04/19/25 08:00 Room Air* 0 21 Labs/Diagnostic Data Labs Test 04/19/25 15:38 04/19/25 11:10 04/19/25 09:30 04/17/25 06:32 Range/Units Prothrombin Time 11.8 9.3-11.8 sec Prothrombin Time INR 1.13 0.9-1.15 Activated Partial Thromboplast Time 36.7 H 24.5-34.5 SEC Sodium Level 133 L 136-145 mmol/L Potassium Level 3.7 3.5-5.1 mmol/L Chloride Level 101 98-107 mmol/L Carbon Dioxide Level 26 20-31 mmol/L Anion Gap 6 5-15 Blood Urea Nitrogen 13 9-23 mg/dL Creatinine 1.33 H 0.550-1.02 mg/dL Glomerular Filtration Rate Calc 38 >90 mL/min BUN/Creatinine Ratio 9.8 L 10.0-20.0 Serum Glucose 121 H 74-106 mg/dL Calcium Level 8.8 8.7-10.4 mg/dL Total Bilirubin 0.3 0.2-1.0 mg/dL Aspartate Amino Transferase (AST) 23 13-40 U/L Alanine Aminotransferase (ALT) 52 H 7-40 U/L Alkaline Phosphatase 104 46-116 U/L Total Protein 6.5 5.7-8.2 g/dL Albumin 3.7 3.2-4.8 g/dL Amylase Level 69 30-118 U/L POC Glucose 157 H 70-106 mg/dl White Blood Count 6.8 4.4-10.8 10^3/uL Red Blood Count 4.37 4.0-5.20 10^6/uL Hemoglobin 13.4 12.2-16.2 g/dL Hematocrit 39.1 36.0-46.0 % Mean Corpuscular Volume 89.5 80.0-100.0 fL Mean Corpuscular Hemoglobin 30.8 28.0-32.0 pg Mean Corpuscular Hemoglobin Concent 34.4 32.0-36.0 g/dL Red Cell Distribution Width 14.2 11.8-14.3 % Platelet Count 276 140-450 10^3/uL Mean Platelet Volume 7.7 6.9-10.8 fL Neutrophils (%) (Auto) 71.2 37.0-80.0 % Lymphocytes (%) (Auto) 15.3 10.0-50.0 % Monocytes (%) (Auto) 11.2 0.0-12.0 % Eosinophils (%) (Auto) 1.7 0.0-7.0 % Basophils (%) (Auto) 0.6 0.0-2.0 % Neutrophils # (Auto) 4.9 1.6-8.6 10 ^3/uL Lymphocytes # (Auto) 1.0 0.4-5.4 10 ^3/uL Monocytes # (Auto) 0.8 0-1.3 10 ^3/uL Eosinophils # (Auto) 0.1 0-0.8 10 ^3/uL Basophils # (Auto) 0 0-0.2 10 ^3/uL Nucleated Red Blood Cells 0.1 % Magnesium Level 2.3 1.6-2.6 mg/dL Test 04/16/25 17:55 04/16/25 17:53 Range/Units Urine Color Colorless Yellow Urine Clarity Turbid H Clear Urine pH 6.0 5.0-9.0 Urine Specific [place] 1.015 1.001-1.035 Urine Protein Negative Negative Urine Ketones Negative Negative Urine Blood Negative Negative /uL Urine Nitrite Negative Negative Urine Bilirubin Negative Negative Urine Urobilinogen Normal Negative mg/dL Urine Leukocyte Esterase 3+ Negative /uL Urine RBC 4 0 - 4 /hpf Urine Microscopic WBC 571 H 0-5 /HPF Urine Squamous Epithelial Cells Few <5 /hpf Urine Bacteria Few H None Seen /hpf Urine Glucose 4+ H Normal mg/dL Urine Opiates Screen Neg NEGATIVE Urine Fentanyl Screen Neg NEGATIVE Urine Barbiturates Screen Neg NEGATIVE Urine Phencyclidine Screen Neg NEGATIVE Urine Amphetamines Screen Neg NEGATIVE Urine Benzodiazepines Screen Neg NEGATIVE Urine Cocaine Screen Neg NEGATIVE Urine Cannabinoids Screen Neg NEGATIVE Hemoglobin A1c 7.0 H <5.7 % A1C Triglycerides Level 179 H < 150 mg/dL Cholesterol Level 141 < 200 mg/dL LDL Cholesterol 85 < 100 mg/dL HDL Cholesterol 32 L 40-59 mg/dL Assessment 89 YEAR OLD FEMALE WITH POSITIVE HIDA SCAN, WORK UP IN PROGRESS, NEEDS CARDIAC CLEARANCE AND [id number] HAS PACEMAKER), WILL FOLLOW, Plan discussed with: Patient, Daughter CHANNING HERNANDEZ MD Apr 19, 2025 16:53
--- NOTE | 2025-04-19 17:15 | DVHPNRES ---
Progress Note Date Seen: Apr 19, 2025 Resident Creating Document: PANFILO VALDES RESIDENT Medical Necessity Reason Pt with a Central, PICC or Fol: No Subjective Review of Systems Patient seen and examined at bedside, she is complaining of mild bilateral flank pain, patient is diagnosed with pyelonephritis and on antibiotic, surgery consult is appreciated and plan to do surgery for cholecystitis Objective vital signs Vital Sign Date Time Temp Pulse Resp B/P (MAP) Pulse Ox O2 Delivery O2 Flow Rate FiO2 04/19/25 16:52 97.5 80 16 137/71 (93) 95 97.5 04/19/25 08:00 Room Air* 0 21 Total Intake and Output 04/18/25 04/18/25 04/19/25 15:00 23:00 07:00 Intake Total 50 ml 0 ml 300 ml Balance 50 ml 0 ml 300 ml medications Current Medications Medications Dose Ordered Sig/Red Route Start Time Stop Time Status Last Admin Dose Admin Acetaminophen 650 mg Q6HP PRN PO 04/16/25 21:45 Acetaminophen/ Hydrocodone Bitart 1 tab Q4HP PRN PO 04/16/25 21:45 Enoxaparin Sodium 40 mg DAILY SC 04/17/25 10:00 UNV Ceftriaxone Sodium 50 ml @ 100 mls/hr DAILY IV 04/17/25 10:00 04/19/25 10:06 100 MLS/HR Lactulose 30 ml DAILY PO 04/16/25 21:45 04/19/25 10:06 30 ML Aspirin 81 mg DAILY PO 04/17/25 10:00 04/19/25 10:09 81 MG Diagnostic Test (Pha) 1 strip ACHS 04/16/25 22:00 04/19/25 11:39 1 STRIP Insulin Human Regular ACHS SC 04/16/25 22:00 04/19/25 11:40 2 UNITS Dextrose 50 ml UD PRN IV 04/16/25 22:00 Insulin Glargine 15 units DAILY@1000 SC 04/16/25 22:00 04/18/25 09:42 15 UNITS Nifedipine 30 mg DAILY PO 04/18/25 10:00 04/19/25 10:09 30 MG Enoxaparin Sodium 30 mg DAILY SC 04/17/25 10:00 04/19/25 10:08 30 MG Dextrose/Sodium Chloride 1,000 ml @ 75 mls/hr [id number] IV 04/17/25 08:45 04/19/25 13:15 75 MLS/HR Examination GENERAL: Not in acute distress. HEENT: EOMI, Moist mucous membranes. No scleral icterus. No cervical lymphadenopathy. LUNGS: Clear to auscultation bilaterally. No accessory muscle use. CARDIOVASCULAR: Regular rate and rhythm. No murmur. No JVD. ABDOMEN: Soft, nontender and nondistended. No palpable masses. EXTREMITIES: No edema. Nontender. SKIN: No rashes or lesions. Warm. NEUROLOGIC: Alert and oriented X3 laboratory and microbiology Laboratory Tests 04/19/25 15:38 04/19/25 09:30 Test 04/19/25 15:38 Range/Units Serum Glucose 121 H 74-106 mg/dL Problem List/Assessment/Plan Problem List/Assessment/Plan # Acute bilateral flank pain, # Possible pyelonephritis. 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 Dilated common bile duct. - HIDA showing: Findings consistent with cystic duct obstruction - surgery consult is appreciated and plan to do surgery for cholecystitis - Stop Lantus as pt is having low blood sugar. - Stop IV fluids NS 0.9% at 75 cc/hour and start 5% DA with .45NS as blood glucose was Low (51) -Continue IV ceftriaxone - Urine culture -replaced potassium -monitor electrolytes closely - lactulose 30 ml daily -mild sliding scale insulin and Lantus 15units daily -carvedilol 12.5mg BID, Aspirin 81mg daily -[place] and acetaminophen PRN for pain modulation DVT prophylaxis: lovenox GI prophylaxis: PPI Goal of care discussed with patient for 23 minutes: FULL CODE Discussed Dr. Agnes Coates discussed with: Patient PANFILO VALDES RESIDENT Apr 19, 2025 17:15
--- NOTE | 2025-04-19 19:20 | DVHINCON2 ---
Date of service: Apr 19, 2025 Referring Physician Shyla Reason for Consultation Preoperative evaluation History of Present Illness This is a 89-year-old female with a PMH of DM, HTN who presents to the ED on 04/16/25 with complaints of bilateral flank pain x 1 week, worsening over the last 3 days. Patient endorses associated vomiting and constipation. Patient states that she did have a bowel movement with no significant relief of pain. She was able to ambulate into the emergency department without any difficulty. CBC was unremarkable. K 3.0, BUN 41, Glaciologist 2.16. CT ABD/PEL shows marked gallbladder distention. No sizable, radiopaque cholelithiasis identified. Otherwise no bowel obstruction, free intraperitoneal air/fluid or sizable inflammatory collections identified on this noncontrast examination. Abdominal US showed distended gallbladder with layering sludge. Dilated common bile duct.Chest x-ray shows NAD. Patient was admitted to the hospital. I am asked to consult on this patient. Family History: Diabetes mellitus G8 MOTHER, Onset: - Patient's father is G8 FATHER, Onset: - Allergies: Coded Allergies: Penicillins (Verified Allergy, Unknown, 02/18/24) Home Meds Active Scripts Atorvastatin Calcium (ATORVASTATIN CALCIUM) 40 Mg Tab, 40 MG PO DAILY for 90 Days, #90 TAB Prov:ALYSHA PIÑA MD 02/20/24 Aspirin (Aspirin Low Dose) 81 Mg Tab, 81 MG PO DAILY for 90 Days, #90 TAB Prov:ALYSHA PIÑA MD 02/20/24 Reported Medications Diclofenac Sodium (Topical) (Diclofenac Sodium) 1 % Gel, 1 APPLIC TOP QID 02/18/24 Oxybutynin Chloride (Oxybutynin Chloride) 5 Mg Tab, 1 TAB PO DAILY 02/18/24 Hctz (Hydrochlorothiazide) 25 Mg Tab, 1 TAB PO DAILY 02/18/24 Carvedilol (Coreg) 25 Mg Tab, 1 TAB PO BID 02/18/24 Empagliflozin (Jardiance) 10 Mg Tab, 1 TAB PO DAILY 02/18/24 Review of Systems Constitutional: reports: weakness; denies: chills, diaphoresis, fatigue, fever, malaise, sweats, others EENTM: denies: blurred vision, double vision, ear bleeding, ear discharge, ear drainage, ear pain, ear ringing, eye pain, eye redness, hearing loss, mouth pain, mouth swelling, nasal discharge, nose bleeding, nose congestion, nose pain, photophobia, tearing, throat pain, throat swelling, voice changes, others Respiratory: denies: cough, hemoptysis, orthopnea, SOB at rest, shortness of breath, SOB with excertion, stridor, wheezing, others Cardiovascular: denies: chest pain, dizzy spells, diaphoresis, Dyspnea on exertion, edema, irregular heart beat, left arm pain, lightheadedness, palpitations, PND, syncope, others Gastrointestinal: denies: abdomen distended, abdominal pain, blood streaked bowels, constipated, diarrhea, dysphagia, difficulty swallowing, hematemesis, melena, nausea, poor appetite, poor fluid intake, rectal bleeding, rectal pain, vomiting, others Genitourinary: reports: flank pain; denies: abnormal vagina bleeding, burning, dyspareunia, dysuria, frequency, hematuria, incontinence, pain, , vagina discharge, urgency, others Neurological: denies: dizziness, fainting, headache, left sided numbness, left sided weakness, numbness, paresthesia, pre-existing deficit, right sided numbness, right sided weakness, seizure, speech problems, tingling, tremors, weakness, others Musculoskeletal: denies: back pain, gout, joint pain, joint swelling, muscle pain, muscle stiffness, neck pain, others Integumetry: denies: bruises, change in color, change in hair/nails, dryness, laceration, lesions, lumps, rash, wounds, others Allergic/Immunocompromised: denies: Difficulty Healing, Frequent Infections, Hives, Itching, others Hematologic/Lymphatic: denies: anemia, blood clots, easy bleeding, easy bruising, swollen glands, others Endocrine: denies: excessive hunger, excessive sweating, excessive thirst, excessive urination, flushing, intolerance to cold, intolerance to heat, unexplained weight gain, unexplained weight loss, others Psychiatric: denies: anxiety, bipolar disorder, depression, hopeless, panic disorder, schizophrenia, sleepless, suicidal, others Vital Signs Vital Signs Date Time Temp Pulse Resp B/P (MAP) Pulse Ox O2 Delivery O2 Flow Rate FiO2 04/19/25 16:52 97.5 80 16 137/71 (93) 95 97.5 04/19/25 08:00 Room Air* 0 21 Physical Exam GENERAL: Alert and oriented x 3. No acute distress. EYES: PERRL, EOMI. Anicteric. HENT: Moist mucous membranes. LUNGS: Clear to auscultation bilaterally. CARDIOVASCULAR: Regular rate and rhythm. ABDOMEN: Soft, nontender and nondistended. EXTREMITIES: No edema. NEUROLOGIC: No focal neurological deficits. SKIN: Warm, dry. Labs/Diagnostic Data Labs Test 04/19/25 15:38 04/19/25 11:10 04/19/25 09:30 04/17/25 06:32 Range/Units Prothrombin Time 11.8 9.3-11.8 sec Prothrombin Time INR 1.13 0.9-1.15 Activated Partial Thromboplast Time 36.7 H 24.5-34.5 SEC Sodium Level 133 L 136-145 mmol/L Potassium Level 3.7 3.5-5.1 mmol/L Chloride Level 101 98-107 mmol/L Carbon Dioxide Level 26 20-31 mmol/L Anion Gap 6 5-15 Blood Urea Nitrogen 13 9-23 mg/dL Creatinine 1.33 H 0.550-1.02 mg/dL Glomerular Filtration Rate Calc 38 >90 mL/min BUN/Creatinine Ratio 9.8 L 10.0-20.0 Serum Glucose 121 H 74-106 mg/dL Calcium Level 8.8 8.7-10.4 mg/dL Total Bilirubin 0.3 0.2-1.0 mg/dL Aspartate Amino Transferase (AST) 23 13-40 U/L Alanine Aminotransferase (ALT) 52 H 7-40 U/L Alkaline Phosphatase 104 46-116 U/L Total Protein 6.5 5.7-8.2 g/dL Albumin 3.7 3.2-4.8 g/dL Amylase Level 69 30-118 U/L POC Glucose 157 H 70-106 mg/dl White Blood Count 6.8 4.4-10.8 10^3/uL Red Blood Count 4.37 4.0-5.20 10^6/uL Hemoglobin 13.4 12.2-16.2 g/dL Hematocrit 39.1 36.0-46.0 % Mean Corpuscular Volume 89.5 80.0-100.0 fL Mean Corpuscular Hemoglobin 30.8 28.0-32.0 pg Mean Corpuscular Hemoglobin Concent 34.4 32.0-36.0 g/dL Red Cell Distribution Width 14.2 11.8-14.3 % Platelet Count 276 140-450 10^3/uL Mean Platelet Volume 7.7 6.9-10.8 fL Neutrophils (%) (Auto) 71.2 37.0-80.0 % Lymphocytes (%) (Auto) 15.3 10.0-50.0 % Monocytes (%) (Auto) 11.2 0.0-12.0 % Eosinophils (%) (Auto) 1.7 0.0-7.0 % Basophils (%) (Auto) 0.6 0.0-2.0 % Neutrophils # (Auto) 4.9 1.6-8.6 10 ^3/uL Lymphocytes # (Auto) 1.0 0.4-5.4 10 ^3/uL Monocytes # (Auto) 0.8 0-1.3 10 ^3/uL Eosinophils # (Auto) 0.1 0-0.8 10 ^3/uL Basophils # (Auto) 0 0-0.2 10 ^3/uL Nucleated Red Blood Cells 0.1 % Magnesium Level 2.3 1.6-2.6 mg/dL Test 04/16/25 17:55 04/16/25 17:53 Range/Units Urine Color Colorless Yellow Urine Clarity Turbid H Clear Urine pH 6.0 5.0-9.0 Urine Specific [place] 1.015 1.001-1.035 Urine Protein Negative Negative Urine Ketones Negative Negative Urine Blood Negative Negative /uL Urine Nitrite Negative Negative Urine Bilirubin Negative Negative Urine Urobilinogen Normal Negative mg/dL Urine Leukocyte Esterase 3+ Negative /uL Urine RBC 4 0 - 4 /hpf Urine Microscopic WBC 571 H 0-5 /HPF Urine Squamous Epithelial Cells Few <5 /hpf Urine Bacteria Few H None Seen /hpf Urine Glucose 4+ H Normal mg/dL Urine Opiates Screen Neg NEGATIVE Urine Fentanyl Screen Neg NEGATIVE Urine Barbiturates Screen Neg NEGATIVE Urine Phencyclidine Screen Neg NEGATIVE Urine Amphetamines Screen Neg NEGATIVE Urine Benzodiazepines Screen Neg NEGATIVE Urine Cocaine Screen Neg NEGATIVE Urine Cannabinoids Screen Neg NEGATIVE Hemoglobin A1c 7.0 H <5.7 % A1C Triglycerides Level 179 H < 150 mg/dL Cholesterol Level 141 < 200 mg/dL LDL Cholesterol 85 < 100 mg/dL HDL Cholesterol 32 L 40-59 mg/dL Assessment Acute bilateral flank pain. Acute cholelithiasis. Acute UTI. YADIRA on CKD stage IIIB. CKD stage 3B. Hypokalemia. Constipation. Primary hypertension. Type 2 diabetes mellitus. History of pacemaker placement. Plan/Recommendation I agree with your ongoing assessment and care of plan. [place] for pain management. Aspirin. IV antibiotics as ordered. DVT prophylactics. Nifedipine. Additional plan as per the hospital course. A total of 45 minutes was spent reviewing the patient record, examining the patient, making a diagnostic and therapeutic plan, discussing this plan with medical personnel, following up on diagnostic studies and following the patient for clinical stability excluding any and all procedures. At least 50% of this time was spent in direct, [id number] contact. Plan discussed with: Patient EMILIA PENA MD Apr 19, 2025 18:36
[2025-04-20] VITALS (8 sets, daily range): BP systolic 127–167; BP diastolic 54–76; PULSE 66–100; RESP 17–19; TEMP 97.6–98.3; O2SAT 97–99
--- NOTE | 2025-04-20 08:53 | DVHPN2 ---
Progress Note Date Seen: Apr 20, 2025 Medical Necessity Reason Pt with a Central, PICC or Fol: No Objective vital signs Vital Sign Date Time Temp Pulse Resp B/P (MAP) Pulse Ox O2 Delivery O2 Flow Rate FiO2 04/20/25 04:50 97.6 73 18 153/76 (101) 99 97.6 04/19/25 20:00 Room Air* 0 21 Total Intake and Output 04/19/25 04/19/25 04/20/25 15:00 23:00 07:00 Intake Total 1050 ml 1100 ml 300 ml Balance 1050 ml 1100 ml 300 ml medications Current Medications Medications Dose Ordered Sig/Red Route Start Time Stop Time Status Last Admin Dose Admin Acetaminophen 650 mg Q6HP PRN PO 04/16/25 21:45 Acetaminophen/ Hydrocodone Bitart 1 tab Q4HP PRN PO 04/16/25 21:45 Enoxaparin Sodium 40 mg DAILY SC 04/17/25 10:00 UNV Ceftriaxone Sodium 50 ml @ 100 mls/hr DAILY IV 04/17/25 10:00 04/19/25 10:06 100 MLS/HR Lactulose 30 ml DAILY PO 04/16/25 21:45 04/19/25 10:06 30 ML Aspirin 81 mg DAILY PO 04/17/25 10:00 04/19/25 10:09 81 MG Diagnostic Test (Pha) 1 strip ACHS 04/16/25 22:00 04/20/25 06:16 1 STRIP Insulin Human Regular ACHS SC 04/16/25 22:00 04/20/25 06:15 2 UNITS Dextrose 50 ml UD PRN IV 04/16/25 22:00 Insulin Glargine 15 units DAILY@1000 SC 04/16/25 22:00 04/18/25 09:42 15 UNITS Nifedipine 30 mg DAILY PO 04/18/25 10:00 04/19/25 10:09 30 MG Enoxaparin Sodium 30 mg DAILY SC 04/17/25 10:00 04/19/25 10:08 30 MG Dextrose/Sodium Chloride 1,000 ml @ 75 mls/hr [id number] IV 04/17/25 08:45 04/20/25 00:48 75 MLS/HR laboratory and microbiology Laboratory Tests 04/19/25 15:38 04/19/25 09:30 Test 04/19/25 15:38 Range/Units Serum Glucose 121 H 74-106 mg/dL Problem List/Assessment/Plan Problem List/Assessment/Plan 04/20/25 slight pain, abdomen slightly tender, expalined that she has a positive HIDA scan and explained planned procedure for tomorrow AM Plan discussed with: Patient CHANNING HERNANDEZ MD Apr 20, 2025 08:53
--- NOTE | 2025-04-20 12:05 | DVHPNRES ---
Progress Note Date Seen: Apr 20, 2025 Resident Creating Document: PANFILO VALDES RESIDENT Medical Necessity Reason Pt with a Central, PICC or Fol: No Subjective Review of Systems Patient seen and examined at bedside, she is complaining of mild bilateral flank pain, patient is diagnosed with pyelonephritis and on antibiotic, surgery consult is appreciated and plan to do surgery for cholecystitis Objective vital signs Vital Sign Date Time Temp Pulse Resp B/P (MAP) Pulse Ox O2 Delivery O2 Flow Rate FiO2 04/20/25 09:36 160/76 04/20/25 09:00 97.9 66 17 97 97.9 04/20/25 08:00 Room Air* 0 21 Total Intake and Output 04/19/25 04/19/25 04/20/25 15:00 23:00 07:00 Intake Total 1050 ml 1100 ml 300 ml Balance 1050 ml 1100 ml 300 ml medications Current Medications Medications Dose Ordered Sig/Red Route Start Time Stop Time Status Last Admin Dose Admin Acetaminophen 650 mg Q6HP PRN PO 04/16/25 21:45 Acetaminophen/ Hydrocodone Bitart 1 tab Q4HP PRN PO 04/16/25 21:45 Enoxaparin Sodium 40 mg DAILY SC 04/17/25 10:00 UNV Ceftriaxone Sodium 50 ml @ 100 mls/hr DAILY IV 04/17/25 10:00 04/20/25 09:37 100 MLS/HR Lactulose 30 ml DAILY PO 04/16/25 21:45 04/19/25 10:06 30 ML Aspirin 81 mg DAILY PO 04/17/25 10:00 04/20/25 09:36 81 MG Diagnostic Test (Pha) 1 strip ACHS 04/16/25 22:00 04/20/25 06:16 1 STRIP Insulin Human Regular ACHS SC 04/16/25 22:00 04/20/25 06:15 2 UNITS Dextrose 50 ml UD PRN IV 04/16/25 22:00 Enoxaparin Sodium 30 mg DAILY SC 04/17/25 10:00 04/20/25 09:35 30 MG Dextrose/Sodium Chloride 1,000 ml @ 75 mls/hr [id number] IV 04/17/25 08:45 04/20/25 00:48 75 MLS/HR Hydralazine HCl 10 mg Q6HP PRN IV 04/20/25 10:15 Nifedipine 60 mg DAILY PO 04/21/25 10:00 Examination GENERAL: Not in acute distress. HEENT: EOMI, Moist mucous membranes. No scleral icterus. No cervical lymphadenopathy. LUNGS: Clear to auscultation bilaterally. No accessory muscle use. CARDIOVASCULAR: Regular rate and rhythm. No murmur. No JVD. ABDOMEN: Soft, nontender and nondistended. No palpable masses. EXTREMITIES: No edema. Nontender. SKIN: No rashes or lesions. Warm. NEUROLOGIC: Alert and oriented X3 laboratory and microbiology Laboratory Tests 04/19/25 15:38 04/19/25 09:30 Test 04/19/25 15:38 Range/Units Serum Glucose 121 H 74-106 mg/dL Problem List/Assessment/Plan Problem List/Assessment/Plan # Acute bilateral flank pain, # Possible pyelonephritis. 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 Dilated common bile duct. - HIDA showing: Findings consistent with cystic duct obstruction - surgery consult is appreciated and plan to do surgery for cholecystitis: Cholecystectomy tomorrow - Stop Lantus as pt is having low blood sugar. - Stop IV fluids NS 0.9% at 75 cc/hour and start 5% DA with .45NS as blood glucose was Low (51) -Continue IV ceftriaxone - Urine culture -replaced potassium -monitor electrolytes closely - lactulose 30 ml daily -mild sliding scale insulin and Lantus 15units daily -carvedilol 12.5mg BID, Aspirin 81mg daily -[place] and acetaminophen PRN for pain modulation DVT prophylaxis: lovenox GI prophylaxis: PPI Goal of care discussed with patient for 21 minutes: FULL CODE Discussed Dr. Alarcon Plan discussed with: Patient My Orders My Orders Orders - PANFILO VALDES Procedure Category Date Status Time Hydralazine Injection PHA 04/20/25 In Process (Apresoline Inject 10:15 Nifedipine Er PHA 04/21/25 In Process (Procardia Xl 10:00 Basic Metabolic Panel LAB 04/21/25 Verified 04:00 Complete Blood Count LAB 04/21/25 Verified 04:00 PANFILO VALDES RESIDENT Apr 20, 2025 12:05
--- NOTE | 2025-04-20 13:50 | DVHSR ---
APPROVED REPORT EXAM: Two-dimensional and M-mode echocardiogram with Doppler and color Doppler. Mitral Valve MitralMitral Stenosis E/A ratio0.02D MVAcm2 LEFT VENTRICLE The left ventricle is normal size. There is normal left ventricular wall thickness. The left ventricle is normal in structure and function. Left ventricle systolic function is normal. The Ejection Fraction is 55-60%. No regional wall motion abnormalities noted. RIGHT VENTRICLE The right ventricle is normal size. There is normal right ventricular wall thickness. The right ventricular systolic function is normal. ATRIA The left atrium size is normal. The right atrium size is normal. The interatrial septum is intact with no evidence for an atrial septal defect. MITRAL VALVE There is no evidence of mitral valve prolapse. There is no mitral valve stenosis. Mitral regurgitation is mild. PULMONIC VALVE The pulmonary valve is normal in structure and function. There is no pulmonic valvular regurgitation. There is no pulmonic valvular stenosis. TRICUSPID VALVE The tricuspid valve is normal in structure and function. There is no tricuspid valve regurgitation noted. There is no tricuspid valve prolapse or vegetation. There is no tricuspid valve stenosis. AORTIC VALVE The aortic valve is normal in structure and function. No aortic regurgitation is present. There is no aortic valvular stenosis. There is no aortic valvular vegetation. GREAT VESSELS The aortic root is normal in size. PERICARDIAL EFFUSION There is a no pericardial effusion. Conclusion There is normal left ventricular wall thickness. The left ventricle is normal in structure and function. Left ventricle systolic function is normal. The Ejection Fraction is 55-60%. There is mild mitral regurgitation. There is a no pericardial effusion.
--- NOTE | 2025-04-20 16:50 | DVHINCON2 ---
DATE OF CONSULTATION: 04/20/2025 REFERRING PHYSICIAN: . CONSULTING PHYSICIAN: Declan Poole MD INDICATION: Preop. HISTORY OF PRESENT ILLNESS: The patient is an 89-year-old female with history of hypertension, diabetes, CKD status post ICD in the remote past, indication unclear, now presents to the hospital with complaints of abdominal pain, admitted with diagnosis of acute cholecystitis, currently being evaluated for abdominal surgery. I was asked to do preop cardiac risk assessment. The patient denies any active symptoms of chest pain or shortness of breath. She is fairly active with no significant symptoms. PAST MEDICAL HISTORY: * Hypertension. * Diabetes. * Status post ICD implant. MEDICATIONS: Per med rec. ALLERGIES: No known drug allergies. PHYSICAL EXAMINATION: GENERAL: Alert and awake, in no form of cardiopulmonary distress. VITAL SIGNS: Blood pressure 150/65, pulse 66 per minute, saturation 99%. HEENT: No carotid bruits. No jugular venous distention. CHEST: Bilateral air entry. CARDIOVASCULAR: Precordial and carotid pulses palpable. Normal S1, S2. Regular rate and rhythm. No appreciable gallop or rubs. EXTREMITIES: No peripheral edema. DIAGNOSTIC DATA: White count 6, hemoglobin , platelets 276. Sodium 133, potassium 3.7, creatinine 1.3. ASSESSMENT AND PLAN: An 89-year-old female with history of hypertension, diabetes, status post ICD implant, presented to the hospital with abdominal pain, admitted with diagnosis of acute cholecystitis. She is currently being evaluated for abdominal surgery. She denies any active cardiac symptoms. Echo shows preserved LV systolic function. No evidence of aortic stenosis. Given these findings, there is no indication for further preop cardiac workup. The patient may proceed with planned surgery as an intermediate risk. Thank you for allowing me to participate in the care of this patient. MD SHEY Rosen/ARASH/JASON TID: [id number] RECEIPT: [id number]
[2025-04-21] VITALS (12 sets, daily range): BP systolic 128–150; BP diastolic 63–78; PULSE 69–84; RESP 18; TEMP 97.5–98.3; O2SAT 95–100
[2025-04-21 07:13] LABS: Basophils # (auto) 0 10 ^3/uL (0-0.2); Basophils % (auto) 0.8 % (0.0-2.0); Eosinophils # (auto) 0.1 10 ^3/uL (0-0.8); Hematocrit 37.2 % (36.0-46.0); Hemoglobin 12.5 g/dL (12.2-16.2); Lymphocytes # (auto) 1.1 10 ^3/uL (0.4-5.4); Lymphocytes % (auto) 20.2 % (10.0-50.0); Mean Corpuscular Hgb Conc. 33.5 g/dL (32.0-36.0); Mean Corpuscular Volume 89.5 fL (80.0-100.0); Monocytes # (auto) 0.6 10 ^3/uL (0-1.3); Monocytes % (auto) 11.5 % (0.0-12.0); Neutrophils # (auto) 3.7 10 ^3/uL (1.6-8.6); Neutrophils % (auto) 65.5 % (37.0-80.0); Platelet Count (auto) 289 10^3/uL (140-450); Red Blood Cells 4.16 10^6/uL (4.0-5.20); Red Cell Distribution Width 14.2 % (11.8-14.3); White Blood Cell 5.7 10^3/uL (4.4-10.8)
[2025-04-21] MEDS ORDERED: fentaNYL CITRATE 100 MCG/2 ML VL ONE (07:14)
[2025-04-21 07:22] LABS: Anion Gap 10 (5-15); Calcium 8.8 mg/dL (8.7-10.4); Carbon Dioxide 24 mmol/L (20-31); Chloride 101 mmol/L (98-107); Potassium 3.6 mmol/L (3.5-5.1)
[2025-04-21 07:24] LABS: Sodium 135 mmol/L (136-145)
[2025-04-21 07:28] LABS: BUN/Creatinine Ratio 9.4 (10.0-20.0); Blood Urea Nitrogen 14 mg/dL (9-23)
[2025-04-21 07:30] LABS: Glucose 156 mg/dL (74-106)
[2025-04-21] MEDS: ceFAZolin 2 GM/D5W50ml 50 ML IV ONE (07:30)
[2025-04-21] MEDS: BUPIVACAINE HCL 0.25% P/F 10 ML VIAL ONE (07:53)
[2025-04-21] MEDS: LIDOCAINE 1% HCL (LOCAL ANESTH.) INJ 20ML MDV ONE (07:53)
[2025-04-21] MEDS ORDERED: PROPOFOL 10 MG/ML 20 ML IV ONE (08:06)
[2025-04-21] MEDS ORDERED: HYDROmorphone HCL 2 MG/ML VL/or syr IV PRN (08:15)
[2025-04-21] MEDS ORDERED: ONDANSETRON HCL 4 MG/2 ML VIAL IV PRN (08:15)
--- NOTE | 2025-04-21 10:34 | DVHOP ---
DATE OF SURGERY: 04/21/2025 PREOPERATIVE DIAGNOSES: * Cholelithiasis. * Cholecystitis. POSTOPERATIVE DIAGNOSES: * Cholelithiasis. * Cholecystitis. SURGEON: Derick Mansfield MD EDUCATION SPEC: Jae Toledo NP ANESTHESIA: General endotracheal, . PROCEDURES: * Laparoscopy. * Laparoscopic cholecystectomy. DESCRIPTION OF PROCEDURE: Under general endotracheal anesthesia with the patient's skin prepped and draped, a supraumbilical incision was made and Veress needle inserted by the hanging drop technique to establish pneumoperitoneum to 15 mmHg pressure by insufflation with carbon dioxide. With the abdomen fully distended, the needle was removed and replaced with a 5 mm trocar port through which a 0-degree viewing laparoscope was inserted and under direct vision, 5 and 10 mm ports inserted through the right anterior axillary line at the level of the umbilicus and through the subxiphoid skin in the midline. The instrumentation was then introduced and laparoscopy was performed revealing no obvious unexpected pathology. The gallbladder was massively enlarged. It was aspirated of bile and the bile was submitted for cultures and sensitivities. The gallbladder was then placed on tension cephalad and the cystic duct and cystic artery were identified, circumferentially dissected, skeletonized, and traced into the hepatocystic triangle system to minimize the potential for an inadvertent injury to the common bile duct. The cystic duct and cystic artery were then divided close to the gallbladder again attempting to avoid any injury to the common bile duct. Subsequently, with minimal use of cautery due to the patient's AICD, the gallbladder was resected from its liver bed mostly by sharp dissection and blunt dissection again with minimal cautery use. The gallbladder that was fully mobilized was then placed into a specimen extraction bag and removed from the peritoneal cavity through the 10 mm port site. The right upper quadrant was irrigated. Irrigant was aspirated. Small amount of hemostatic SNoW was applied to the liver bed which was denuded and then a 10 mm Leobardo-Kothari drain was inserted underneath the right lobe of the liver and exteriorized through the right flank 5 mm trocar port site and secured with a 2-0 nylon suture. Following assurance of complete hemostasis at the termination of the procedure, there was no evidence of bleeding from either the liver bed or the port sites. The instrumentation was withdrawn. Pneumoperitoneum was evacuated. Fascia defect was closed using 0 Vicryl. Wounds were approximated using Monocryl sutures, Dermabond glue, and Steri-Strips. The patient remained stable throughout the procedure and left the operating room following an accurate needle and sponge count. The patient's granddaughter was thoroughly informed in the waiting area. MD FERNANDA Gonzalez/KYRA/JASON TID: [id number] RECEIPT: [id number]
[2025-04-21] MEDS: D5W/SOD CHL 0.45%/KCL 20MEQ 1,000 ML IV SCH (10:57)
[2025-04-21] MEDS: NIFEdipine ER 30 MG TAB PO SCH (11:10)
[2025-04-21] MEDS: PANTOPRAZOLE 40 MG/10 ML VIAL INJ IV SCH (11:29)
--- NOTE | 2025-04-21 15:02 | DVHPNRES ---
Progress Note Date Seen: Apr 21, 2025 Resident Creating Document: PANFILO VALDES RESIDENT Medical Necessity Reason Pt with a Central, PICC or Fol: No Subjective Review of Systems Patient seen and examined at bedside, patient underwent cholecystectomy this morning, she is complaining of mild pain on surgical site Objective vital signs Vital Sign Date Time Temp Pulse Resp B/P (MAP) Pulse Ox O2 Delivery O2 Flow Rate FiO2 04/21/25 13:00 97.5 73 18 128/71 (90) 97 97.5 04/21/25 09:25 Room Air 04/21/25 09:25 0 95 Total Intake and Output 04/20/25 04/20/25 04/21/25 15:00 23:00 07:00 Intake Total 50 ml 720 ml 300 ml Balance 50 ml 720 ml 300 ml medications Current Medications Medications Dose Ordered Sig/Red Route Start Time Stop Time Status Last Admin Dose Admin Acetaminophen 650 mg Q6HP PRN PO 04/16/25 21:45 Acetaminophen/ Hydrocodone Bitart 1 tab Q4HP PRN PO 04/16/25 21:45 Hold Enoxaparin Sodium 40 mg DAILY SC 04/17/25 10:00 UNV Ceftriaxone Sodium 50 ml @ 100 mls/hr DAILY IV 04/17/25 10:00 04/21/25 10:57 100 MLS/HR Lactulose 30 ml DAILY PO 04/16/25 21:45 04/21/25 10:44 30 ML Aspirin 81 mg DAILY PO 04/17/25 10:00 04/20/25 09:36 81 MG Diagnostic Test (Pha) 1 strip ACHS 04/16/25 22:00 04/21/25 12:32 1 STRIP Insulin Human Regular ACHS SC 04/16/25 22:00 04/21/25 12:38 3 UNITS Dextrose 50 ml UD PRN IV 04/16/25 22:00 Enoxaparin Sodium 30 mg DAILY SC 04/17/25 10:00 04/20/25 09:35 30 MG Dextrose/Sodium Chloride 1,000 ml @ 75 mls/hr [id number] IV 04/17/25 08:45 04/20/25 15:57 75 MLS/HR Hydralazine HCl 10 mg Q6HP PRN IV 04/20/25 10:15 Nifedipine 60 mg DAILY PO 04/21/25 10:00 04/21/25 11:10 60 MG Hydromorphone HCl 0.25 mg Q4HPRN PRN IV 04/21/25 08:15 Hydromorphone HCl 1 mg Q4HPRN PRN IV 04/21/25 08:15 Ondansetron HCl 4 mg Q4HPRN PRN IV 04/21/25 08:15 Pantoprazole Sodium 40 mg DAILY IV 04/21/25 10:00 04/21/25 11:29 40 MG Examination GENERAL: Not in acute distress. HEENT: EOMI, Moist mucous membranes. No scleral icterus. No cervical lymphadenopathy. LUNGS: Clear to auscultation bilaterally. No accessory muscle use. CARDIOVASCULAR: Regular rate and rhythm. No murmur. No JVD. ABDOMEN: Drain tube is present and draining serosanguineous fluid. EXTREMITIES: No edema. Nontender. SKIN: No rashes or lesions. Warm. NEUROLOGIC: Alert and oriented X3 laboratory and microbiology Laboratory Tests 04/21/25 06:07 Test 04/21/25 06:07 Range/Units Serum Glucose 156 H 74-106 mg/dL Problem List/Assessment/Plan Problem List/Assessment/Plan # Acute bilateral flank pain, # Possible pyelonephritis. 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 Dilated common bile duct. - HIDA showing: Findings consistent with cystic duct obstruction - surgery consult is appreciated : Patient underwent cholecystectomy this morning, no complaint of fever or chills. - Stop Lantus as pt is having low blood sugar. - Stop IV fluids NS 0.9% at 75 cc/hour and start 5% DA with .45NS as blood glucose was Low (51) -Continue IV ceftriaxone - Urine culture -replaced potassium -monitor electrolytes closely - lactulose 30 ml daily -mild sliding scale insulin and Lantus 15units daily -carvedilol 12.5mg BID, Aspirin 81mg daily -[place] and acetaminophen PRN for pain modulation DVT prophylaxis: lovenox GI prophylaxis: PPI Goal of care discussed with patient for 27 minutes: FULL CODE Discussed Dr. Knowles Plan discussed with: Patient Dietary Evaluation Review Comments: CCHO-60g, Renal Specific 48 g Protein diet Expected Outcomes/Goals: Controlled DM, less uremic syndrome Date of Service: Apr 21, 2025 Billing Provider: SAMY KNOWLES MD Common Visit Codes: [id number] INP/OBS CARE(HIGH) PANFILO VALDES RESIDENT Apr 21, 2025 15:02 SAMY KNOWLES MD Apr 21, 2025 22:19
[2025-04-22] VITALS (8 sets, daily range): BP systolic 120–160; BP diastolic 50–73; PULSE 67–89; RESP 17–19; TEMP 97.4–98.3; O2SAT 94–98
[2025-04-22] MEDS: ACETAMINOPHEN 325 MG TAB PO PRN (02:17)
[2025-04-22 05:43] LABS: Basophils # (auto) 0 10 ^3/uL (0-0.2); Basophils % (auto) 0.1 % (0.0-2.0); Eosinophils # (auto) 0 10 ^3/uL (0-0.8); Hematocrit 34.9 % (36.0-46.0); Hemoglobin 11.8 g/dL (12.2-16.2); Lymphocytes # (auto) 0.9 10 ^3/uL (0.4-5.4); Lymphocytes % (auto) 8.4 % (10.0-50.0); Mean Corpuscular Hemoglobin 30.4 pg (28.0-32.0); Mean Corpuscular Hgb Conc. 33.9 g/dL (32.0-36.0); Mean Corpuscular Volume 89.8 fL (80.0-100.0); Monocytes # (auto) 0.5 10 ^3/uL (0-1.3); Monocytes % (auto) 4.9 % (0.0-12.0); Neutrophils # (auto) 9.6 10 ^3/uL (1.6-8.6); Neutrophils % (auto) 86.6 % (37.0-80.0); Platelet Count (auto) 288 10^3/uL (140-450); Red Blood Cells 3.89 10^6/uL (4.0-5.20); Red Cell Distribution Width 13.8 % (11.8-14.3); White Blood Cell 11.1 10^3/uL (4.4-10.8)
[2025-04-22] MEDS: SODIUM CHLORIDE 0.9% 1,000 ML IV SCH (09:45)
--- NOTE | 2025-04-22 11:08 | DVHPN2 ---
Progress Note - Surgical Date Seen: Apr 22, 2025 Post op day Post op day: 1 Subjective Review of Systems: HEENT:Normal, CVS:Normal, RESPIRATORY:Normal, GI:Abnormal, :Normal, MSK:Normal, NEURO:Normal Objective Vital signs Vital Sign Date Time Temp Pulse Resp B/P (MAP) Pulse Ox O2 Delivery O2 Flow Rate FiO2 04/22/25 09:33 120/50 04/22/25 09:00 97.8 89 17 94 97.8 04/21/25 20:00 Room Air* 0 21 Total Intake and Output 04/21/25 04/21/25 04/22/25 15:00 23:00 07:00 Intake Total 50 ml 600 ml 800 ml Output Total 40 ml 160 ml 104 ml Balance 10 ml 440 ml 696 ml Medications Current Medications Medications Dose Ordered Sig/Red Route Start Time Stop Time Status Last Admin Dose Admin Acetaminophen 650 mg Q6HP PRN PO 04/16/25 21:45 04/22/25 02:17 650 MG Acetaminophen/ Hydrocodone Bitart 1 tab Q4HP PRN PO 04/16/25 21:45 Hold Enoxaparin Sodium 40 mg DAILY SC 04/17/25 10:00 UNV Ceftriaxone Sodium 50 ml @ 100 mls/hr DAILY IV 04/17/25 10:00 04/22/25 09:31 100 MLS/HR Lactulose 30 ml DAILY PO 04/16/25 21:45 04/22/25 09:31 30 ML Aspirin 81 mg DAILY PO 04/17/25 10:00 04/22/25 09:34 81 MG Diagnostic Test (Pha) 1 strip ACHS 04/16/25 22:00 04/22/25 06:06 1 STRIP Insulin Human Regular ACHS SC 04/16/25 22:00 04/22/25 06:06 4 UNITS Dextrose 50 ml UD PRN IV 04/16/25 22:00 Enoxaparin Sodium 30 mg DAILY SC 04/17/25 10:00 04/22/25 09:34 30 MG Hydralazine HCl 10 mg Q6HP PRN IV 04/20/25 10:15 Nifedipine 60 mg DAILY PO 04/21/25 10:00 04/22/25 09:33 60 MG Hydromorphone HCl 0.25 mg Q4HPRN PRN IV 04/21/25 08:15 Hydromorphone HCl 1 mg Q4HPRN PRN IV 04/21/25 08:15 Ondansetron HCl 4 mg Q4HPRN PRN IV 04/21/25 08:15 Pantoprazole Sodium 40 mg DAILY IV 04/21/25 10:00 04/22/25 09:34 40 MG Sodium Chloride 1,000 ml @ 100 mls/hr Q10H IV 04/22/25 09:45 Metronidazole 100 ml @ 100 mls/hr Q8HR IV 04/22/25 14:00 Laboratory Laboratory Tests 04/22/25 05:30 04/21/25 06:07 Test 04/21/25 06:07 Range/Units Serum Glucose 156 H 74-106 mg/dL Microbiology Date/Time Source Procedure Growth Status 04/21/25 08:00 Other Other Gram Stain - Final Resulted 04/21/25 08:00 Other Other Anaerobic Culture Pending Resulted 04/21/25 08:00 Other Other Aerobic Culture - Preliminary Resulted Examination: GENERAL:Normal, HEENT:Normal, NECK:Normal, LUNGS:Normal, CVS:Normal, ABDOMEN:Abnormal, MSK:Normal, SKIN:Normal, NEURO:Normal, :Normal Labs and/or images reviewed: Labs reviewed by me Problem List/Assessment/Plan Assessment and Plan 89 YEAR OLD FEMALE WITH POSITIVE HIDA SCAN, WORK UP IN PROGRESS, NEEDS CARDIAC CLEARANCE AND [id number] HAS PACEMAKER), WILL FOLLOW, My Orders My Orders Orders - CHANNING HERNANDEZ MD Procedure Category Date Status Time Clear Liq Diet DIET 04/21/25 Transmitted Lunch Plan discussed with Plan discussed with: Patient, Daughter Visit Coding Surgery Date of Service if different f: Apr 22, 2025 Billing Provider: CHANNING HERNANDEZ MD Surgery Visit Codes: [id number] INP/OBS CARE(HIGH) CHANNING HERNANDEZ MD Apr 22, 2025 11:08
--- NOTE | 2025-04-22 11:11 | DVHPN2 ---
Progress Note Date Seen: Apr 22, 2025 Medical Necessity Reason Pt with a Central, PICC or Fol: No Objective vital signs Vital Sign Date Time Temp Pulse Resp B/P (MAP) Pulse Ox O2 Delivery O2 Flow Rate FiO2 04/22/25 09:33 120/50 04/22/25 09:00 97.8 89 17 94 97.8 04/22/25 08:00 Room Air* 0 21 Total Intake and Output 04/21/25 04/21/25 04/22/25 15:00 23:00 07:00 Intake Total 50 ml 600 ml 800 ml Output Total 40 ml 160 ml 104 ml Balance 10 ml 440 ml 696 ml medications Current Medications Medications Dose Ordered Sig/Red Route Start Time Stop Time Status Last Admin Dose Admin Acetaminophen 650 mg Q6HP PRN PO 04/16/25 21:45 04/22/25 02:17 650 MG Acetaminophen/ Hydrocodone Bitart 1 tab Q4HP PRN PO 04/16/25 21:45 Hold Enoxaparin Sodium 40 mg DAILY SC 04/17/25 10:00 UNV Ceftriaxone Sodium 50 ml @ 100 mls/hr DAILY IV 04/17/25 10:00 04/22/25 09:31 100 MLS/HR Lactulose 30 ml DAILY PO 04/16/25 21:45 04/22/25 09:31 30 ML Aspirin 81 mg DAILY PO 04/17/25 10:00 04/22/25 09:34 81 MG Diagnostic Test (Pha) 1 strip ACHS 04/16/25 22:00 04/22/25 06:06 1 STRIP Insulin Human Regular ACHS SC 04/16/25 22:00 04/22/25 06:06 4 UNITS Dextrose 50 ml UD PRN IV 04/16/25 22:00 Enoxaparin Sodium 30 mg DAILY SC 04/17/25 10:00 04/22/25 09:34 30 MG Hydralazine HCl 10 mg Q6HP PRN IV 04/20/25 10:15 Nifedipine 60 mg DAILY PO 04/21/25 10:00 04/22/25 09:33 60 MG Hydromorphone HCl 0.25 mg Q4HPRN PRN IV 04/21/25 08:15 Hydromorphone HCl 1 mg Q4HPRN PRN IV 04/21/25 08:15 Ondansetron HCl 4 mg Q4HPRN PRN IV 04/21/25 08:15 Pantoprazole Sodium 40 mg DAILY IV 04/21/25 10:00 04/22/25 09:34 40 MG Sodium Chloride 1,000 ml @ 100 mls/hr Q10H IV 04/22/25 09:45 Metronidazole 100 ml @ 100 mls/hr Q8HR IV 04/22/25 14:00 laboratory and microbiology Laboratory Tests 04/22/25 05:30 04/21/25 06:07 Test 04/21/25 06:07 Range/Units Serum Glucose 156 H 74-106 mg/dL Problem List/Assessment/Plan Problem List/Assessment/Plan 04/20/25 slight pain, abdomen slightly tender, expalined that she has a positive HIDA scan and explained planned procedure for tomorrow AM 04/22/25 first day post op, has not ambulated, tolerating po liquids, abdomen appropriately tender, wounds clean and well approximated. dc instructions gibven, celeste be discharged if she ambulates and tolerates regular diet.LYNNETTE drainage slight bilious coloration, Plan discussed with: Patient, Daughter Dietary Evaluation Review Comments: CCHO-60g, Renal Specific 48 g Protein diet Expected Outcomes/Goals: Controlled DM, less uremic syndrome CHANNING HERNANDEZ MD Apr 22, 2025 11:11
[2025-04-22] MEDS: metroNIDAZOLE 500MG/100ML 100 ML IV ONE (12:13)
[2025-04-22] MEDS: metroNIDAZOLE 500MG/100ML 100 ML IV SCH (13:50)
--- NOTE | 2025-04-22 15:26 | DVHPN2 ---
Subjective She feels okay Reviewed: Care Plan, H&P, Labs, Medications, Previous Orders, Radiology, Other (Consulted) Changes from previous H/P or p: No Changes Objective Vitals Vital Signs Date Time Temp Pulse Resp B/P (MAP) Pulse Ox O2 Delivery O2 Flow Rate FiO2 04/22/25 13:00 97.7 78 19 127/65 (85) 97 97.7 04/22/25 08:00 Room Air* 0 21 Intake/Output Intake and Output 04/22/25 07:00 Intake Total 1450 ml Output Total 304 ml Balance 1146 ml Intake Oral 1400 ml IV Total 50 ml Output Urine Total 4 ml Drainage Total 300 ml # Voids 2 # Bowel Movements 1 General Appearance: Alert, Oriented X3, Cooperative, No acute distress HEENT: Atraumatic Lungs: Clear to auscultation Cardiovascular: Regular rate Abdomen: Other (Surgical binder) Medications Current Medications Medications Dose Ordered Sig/Red Route Start Time Stop Time Status Last Admin Dose Admin Acetaminophen 650 mg Q6HP PRN PO 04/16/25 21:45 04/22/25 02:17 650 MG Acetaminophen/ Hydrocodone Bitart 1 tab Q4HP PRN PO 04/16/25 21:45 Hold Enoxaparin Sodium 40 mg DAILY SC 04/17/25 10:00 UNV Ceftriaxone Sodium 50 ml @ 100 mls/hr DAILY IV 04/17/25 10:00 04/22/25 09:31 100 MLS/HR Lactulose 30 ml DAILY PO 04/16/25 21:45 04/22/25 09:31 30 ML Aspirin 81 mg DAILY PO 04/17/25 10:00 04/22/25 09:34 81 MG Diagnostic Test (Pha) 1 strip ACHS 04/16/25 22:00 04/22/25 11:30 1 STRIP Insulin Human Regular ACHS SC 04/16/25 22:00 04/22/25 12:20 3 UNITS Dextrose 50 ml UD PRN IV 04/16/25 22:00 Enoxaparin Sodium 30 mg DAILY SC 04/17/25 10:00 04/22/25 09:34 30 MG Hydralazine HCl 10 mg Q6HP PRN IV 04/20/25 10:15 Nifedipine 60 mg DAILY PO 04/21/25 10:00 04/22/25 09:33 60 MG Hydromorphone HCl 0.25 mg Q4HPRN PRN IV 04/21/25 08:15 Hydromorphone HCl 1 mg Q4HPRN PRN IV 04/21/25 08:15 Ondansetron HCl 4 mg Q4HPRN PRN IV 04/21/25 08:15 Pantoprazole Sodium 40 mg DAILY IV 04/21/25 10:00 04/22/25 09:34 40 MG Sodium Chloride 1,000 ml @ 100 mls/hr Q10H IV 04/22/25 09:45 Metronidazole 100 ml @ 100 mls/hr Q8HR IV 04/22/25 14:00 04/22/25 13:50 100 MLS/HR Laboratory Results Laboratory Tests 04/21/25 06:07 04/22/25 05:30 Lipid panel Test 04/22/25 05:30 Lipase 34 U/L (12-53) LFT Test 04/22/25 05:30 Total Bilirubin 0.3 mg/dL (0.2-1.0) Urinalysis Test 04/16/25 17:55 Urine Color Colorless (Yellow) Urine Clarity Turbid (Clear) H Urine pH 6.0 (5.0-9.0) Urine Specific [place] 1.015 (1.001-1.035) Urine Protein Negative (Negative) Urine Ketones Negative (Negative) Urine Blood Negative /uL (Negative) Urine Nitrite Negative (Negative) Urine Bilirubin Negative (Negative) Urine Urobilinogen Normal mg/dL (Negative) Urine Leukocyte Esterase 3+ /uL (Negative) Urine RBC 4 /hpf (0 - 4) Urine Microscopic WBC 571 /HPF (0-5) H Urine Squamous Epithelial Cells Few /hpf (<5) Urine Bacteria Few /hpf (None Seen) H Urine Glucose 4+ mg/dL (Normal) H Microbiology Microbiology Date/Time Source Procedure Growth Status 04/21/25 08:00 Other Other Gram Stain - Final Resulted 04/21/25 08:00 Other Other Anaerobic Culture - Preliminary Resulted 04/21/25 08:00 Other Other Aerobic Culture - Preliminary Resulted Assessment/Plan Assessment/Plan Abdominal pain/cholecystitis status post laparoscopic cholecystectomy UTI Acute kidney injury atop chronic kidney disease stage IIIB Hypertension Diabetes Status post pacemaker Leukocytosis Plan: Recheck CBC in light of increasing WBCs. IV fluid. Lipase. CBC and CMP. Possible home tomorrow if stable Plan discussed with: Patient, Daughter My Orders Orders - SAMY KNOWLES MD Procedure Category Date Status Time Sodium Chloride 0.9% PHA 04/22/25 In Process 09:45 Metronidazole PHA 04/22/25 In Process 500mg/100ml (Flagyl 14:00 Complete Blood Count LAB 04/23/25 Verified 06:00 Comprehensive LAB 04/23/25 Verified Metabolic Panel 06:00 Amylase LAB 04/23/25 Verified 06:00 Lipase LAB 04/23/25 Verified 06:00 Date of Service: Apr 22, 2025 Billing Provider: SAMY KNOWLES MD Common Visit Codes: [id number] INP/OBS CARE(HIGH) SAMY KNOWLES MD Apr 22, 2025 15:26
[2025-04-22] MEDS: HYDROmorphone HCL 2 MG/ML VL/or syr IV PRN (20:17)
[2025-04-23] VITALS (8 sets, daily range): BP systolic 120–159; BP diastolic 53–70; PULSE 79–109; RESP 17–19; TEMP 97.8–99.8; O2SAT 94–96
[2025-04-23] MEDS: hydrALAZINE HCL 20 MG/ML VL IV PRN (05:24)
[2025-04-23 06:17] LABS: Basophils # (auto) 0 10 ^3/uL (0-0.2); Basophils % (auto) 0.2 % (0.0-2.0); Eosinophils # (auto) 0.1 10 ^3/uL (0-0.8); Eosinophils % (auto) 0.7 % (0.0-7.0); Hematocrit 39.2 % (36.0-46.0); Hemoglobin 13.1 g/dL (12.2-16.2); Lymphocytes # (auto) 1.9 10 ^3/uL (0.4-5.4); Mean Corpuscular Hgb Conc. 33.4 g/dL (32.0-36.0); Mean Corpuscular Volume 89.9 fL (80.0-100.0); Monocytes % (auto) 7.7 % (0.0-12.0); Neutrophils # (auto) 9.5 10 ^3/uL (1.6-8.6); Neutrophils % (auto) 76.4 % (37.0-80.0); Platelet Count (auto) 355 10^3/uL (140-450); Red Blood Cells 4.36 10^6/uL (4.0-5.20); Red Cell Distribution Width 14.4 % (11.8-14.3); White Blood Cell 12.4 10^3/uL (4.4-10.8)
[2025-04-23 06:36] LABS: Alanine Aminotransferase 39 U/L (7-40); Alkaline Phosphatase 88 U/L (46-116); Amylase 74 U/L (30-118); Anion Gap 10 (5-15); BUN/Creatinine Ratio 9.4 (10.0-20.0); Blood Urea Nitrogen 15 mg/dL (9-23); Calcium 9.3 mg/dL (8.7-10.4); Carbon Dioxide 25 mmol/L (20-31); Chloride 101 mmol/L (98-107); Potassium 4.1 mmol/L (3.5-5.1); Sodium 136 mmol/L (136-145); Total Protein 6.9 g/dL (5.7-8.2)
[2025-04-23 06:38] LABS: Aspartate Aminotransferase 43 U/L (13-40); Bilirubin, Total 0.3 mg/dL (0.2-1.0); Glucose 151 mg/dL (74-106)
[2025-04-23 07:08] LABS: Lipase 66 U/L (12-53)
--- NOTE | 2025-04-23 13:13 | DVHPN2 ---
Progress Note Date Seen: Apr 23, 2025 Medical Necessity Reason Pt with a Central, PICC or Fol: No Objective vital signs Vital Sign Date Time Temp Pulse Resp B/P (MAP) Pulse Ox O2 Delivery O2 Flow Rate FiO2 04/23/25 08:47 148/70 04/23/25 08:00 96 17 94 Room Air* 0 21 04/23/25 05:00 98.4 98.4 Total Intake and Output 04/22/25 04/22/25 04/23/25 15:00 23:00 07:00 Intake Total 150 ml 900 ml 800 ml Output Total 125 ml 180 ml Balance 25 ml 900 ml 620 ml medications Current Medications Medications Dose Ordered Sig/Red Route Start Time Stop Time Status Last Admin Dose Admin Acetaminophen 650 mg Q6HP PRN PO 04/16/25 21:45 04/22/25 02:17 650 MG Acetaminophen/ Hydrocodone Bitart 1 tab Q4HP PRN PO 04/16/25 21:45 Hold Enoxaparin Sodium 40 mg DAILY SC 04/17/25 10:00 UNV Ceftriaxone Sodium 50 ml @ 100 mls/hr DAILY IV 04/17/25 10:00 04/23/25 08:41 100 MLS/HR Lactulose 30 ml DAILY PO 04/16/25 21:45 04/23/25 08:41 30 ML Aspirin 81 mg DAILY PO 04/17/25 10:00 04/23/25 08:41 81 MG Diagnostic Test (Pha) 1 strip ACHS 04/16/25 22:00 04/23/25 11:30 1 STRIP Insulin Human Regular ACHS SC 04/16/25 22:00 04/23/25 12:15 4 UNITS Dextrose 50 ml UD PRN IV 04/16/25 22:00 Enoxaparin Sodium 30 mg DAILY SC 04/17/25 10:00 04/23/25 08:41 30 MG Hydralazine HCl 10 mg Q6HP PRN IV 04/20/25 10:15 04/23/25 05:24 10 MG Nifedipine 60 mg DAILY PO 04/21/25 10:00 04/23/25 08:47 60 MG Hydromorphone HCl 0.25 mg Q4HPRN PRN IV 04/21/25 08:15 Hydromorphone HCl 1 mg Q4HPRN PRN IV 04/21/25 08:15 04/22/25 20:17 1 MG Ondansetron HCl 4 mg Q4HPRN PRN IV 04/21/25 08:15 Pantoprazole Sodium 40 mg DAILY IV 04/21/25 10:00 04/23/25 08:41 40 MG Sodium Chloride 1,000 ml @ 100 mls/hr Q10H IV 04/22/25 09:45 Metronidazole 100 ml @ 100 mls/hr Q8HR IV 04/22/25 14:00 04/23/25 05:17 100 MLS/HR laboratory and microbiology Laboratory Tests 04/23/25 05:44 Test 04/23/25 05:44 Range/Units Serum Glucose 151 H 74-106 mg/dL Problem List/Assessment/Plan Problem List/Assessment/Plan 04/20/25 slight pain, abdomen slightly tender, expalined that she has a positive HIDA scan and explained planned procedure for tomorrow AM 04/22/25 first day post op, has not ambulated, tolerating po liquids, abdomen appropriately tender, wounds clean and well approximated. dc instructions given, may be discharged if she ambulates and tolerates regular diet.LYNNETTE drainage slight bilious coloration, 04/23/25 FEELS WELL, NO NAUSEA, ABDOMEN NON DISTENDED, WOUNDS CLEAN AND WELL APPROXIMATED, SHE IS CLEAred for discharge from surgical point of view, to return to see me in 10days Plan discussed with: Patient, Daughter Dietary Evaluation Review Comments: CCHO-60g, Renal Specific 48 g Protein diet Expected Outcomes/Goals: Controlled DM, less uremic syndrome CHANNING HERNANDEZ MD Apr 23, 2025 13:13
--- NOTE | 2025-04-23 17:14 | DVHPNRES ---
Progress Note Date Seen: Apr 23, 2025 Resident Creating Document: PANFILO VALDES RESIDENT Medical Necessity Reason Pt with a Central, PICC or Fol: No Subjective Review of Systems Seen and examined at bedside, patient is feeling better, status post cholecystectomy, mild pain on surgical site, LYNNETTE drain present and draining serosanguineous fluid 50 mL today, WBCs little bit high. Patient will be discharged home tomorrow morning. Objective vital signs Vital Sign Date Time Temp Pulse Resp B/P (MAP) Pulse Ox O2 Delivery O2 Flow Rate FiO2 04/23/25 08:47 148/70 04/23/25 08:00 96 17 94 Room Air* 0 21 04/23/25 05:00 98.4 98.4 Total Intake and Output 04/22/25 04/22/25 04/23/25 15:00 23:00 07:00 Intake Total 150 ml 900 ml 800 ml Output Total 125 ml 180 ml Balance 25 ml 900 ml 620 ml medications Current Medications Medications Dose Ordered Sig/Red Route Start Time Stop Time Status Last Admin Dose Admin Acetaminophen 650 mg Q6HP PRN PO 04/16/25 21:45 04/22/25 02:17 650 MG Acetaminophen/ Hydrocodone Bitart 1 tab Q4HP PRN PO 04/16/25 21:45 Hold Enoxaparin Sodium 40 mg DAILY SC 04/17/25 10:00 UNV Ceftriaxone Sodium 50 ml @ 100 mls/hr DAILY IV 04/17/25 10:00 04/23/25 08:41 100 MLS/HR Lactulose 30 ml DAILY PO 04/16/25 21:45 04/23/25 08:41 30 ML Aspirin 81 mg DAILY PO 04/17/25 10:00 04/23/25 08:41 81 MG Diagnostic Test (Pha) 1 strip ACHS 04/16/25 22:00 04/23/25 17:00 1 STRIP Insulin Human Regular ACHS SC 04/16/25 22:00 04/23/25 12:15 4 UNITS Dextrose 50 ml UD PRN IV 04/16/25 22:00 Enoxaparin Sodium 30 mg DAILY SC 04/17/25 10:00 04/23/25 08:41 30 MG Hydralazine HCl 10 mg Q6HP PRN IV 04/20/25 10:15 04/23/25 05:24 10 MG Nifedipine 60 mg DAILY PO 04/21/25 10:00 04/23/25 08:47 60 MG Hydromorphone HCl 0.25 mg Q4HPRN PRN IV 04/21/25 08:15 Hydromorphone HCl 1 mg Q4HPRN PRN IV 04/21/25 08:15 04/22/25 20:17 1 MG Ondansetron HCl 4 mg Q4HPRN PRN IV 04/21/25 08:15 Pantoprazole Sodium 40 mg DAILY IV 04/21/25 10:00 04/23/25 08:41 40 MG Sodium Chloride 1,000 ml @ 100 mls/hr Q10H IV 04/22/25 09:45 Metronidazole 100 ml @ 100 mls/hr Q8HR IV 04/22/25 14:00 04/23/25 13:28 100 MLS/HR Examination GENERAL: Not in acute distress. HEENT: EOMI, Moist mucous membranes. No scleral icterus. No cervical lymphadenopathy. LUNGS: Clear to auscultation bilaterally. No accessory muscle use. CARDIOVASCULAR: Regular rate and rhythm. No murmur. No JVD. ABDOMEN: Drain tube is present and draining serosanguineous fluid. EXTREMITIES: No edema. Nontender. SKIN: No rashes or lesions. Warm. NEUROLOGIC: Alert and oriented X3 laboratory and microbiology Laboratory Tests 04/23/25 05:44 Test 04/23/25 05:44 Range/Units Serum Glucose 151 H 74-106 mg/dL Microbiology Date/Time Source Procedure Growth Status 04/21/25 08:00 Other Other Gram Stain - Final Resulted 04/21/25 08:00 Other Other Anaerobic Culture - Preliminary Resulted 04/21/25 08:00 Other Other Aerobic Culture - Preliminary Resulted Problem List/Assessment/Plan Problem List/Assessment/Plan # Acute bilateral flank pain, # Possible pyelonephritis. 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 Dilated common bile duct. - HIDA showing: Findings consistent with cystic duct obstruction - status post cholecystectomy, mild pain on surgical site, LYNNETTE drain present and draining serosanguineous fluid 50 mL today, - Stop Lantus as pt is having low blood sugar. - Stop IV fluids NS 0.9% at 75 cc/hour and start 5% DA with .45NS as blood glucose was Low (51) -Continue IV ceftriaxone - Urine culture -replaced potassium -monitor electrolytes closely - lactulose 30 ml daily -mild sliding scale insulin and Lantus 15units daily -carvedilol 12.5mg BID, Aspirin 81mg daily -[place] and acetaminophen PRN for pain modulation DVT prophylaxis: lovenox GI prophylaxis: PPI Possible discharge tomorrow morning Goal of care discussed with patient for 27 minutes: FULL CODE Discussed Dr. Birch Plan discussed with: Patient, Daughter My Orders My Orders Orders - PANFILO VALDES Procedure Category Date Status Time Complete Blood Count LAB 04/24/25 Verified 04:00 Comprehensive LAB 04/24/25 Verified Metabolic Panel 04:00 Dietary Evaluation Review Comments: CCHO-60g, Renal Specific 48 g Protein diet Expected Outcomes/Goals: Controlled DM, less uremic syndrome Date of Service: Apr 23, 2025 Billing Provider: HESHAM BIRCH MD Common Visit Codes: [id number] DISCH DAY >30min PANFILO VALDES Apr 23, 2025 17:14 HESHAM BIRCH MD Apr 23, 2025 22:50
[2025-04-24 01:00] VITALS: BP 142/59; PULSE 96; RESP 17; TEMP 98.1; O2SAT 97
[2025-04-24 05:00] VITALS: BP 127/51; PULSE 89; RESP 17; TEMP 98.1; O2SAT 95
[2025-04-24 06:19] LABS: Basophils # (auto) 0 10 ^3/uL (0-0.2); Basophils % (auto) 0.3 % (0.0-2.0); Eosinophils # (auto) 0.1 10 ^3/uL (0-0.8); Eosinophils % (auto) 1.4 % (0.0-7.0); Hematocrit 35.2 % (36.0-46.0); Hemoglobin 11.9 g/dL (12.2-16.2); Lymphocytes # (auto) 1.2 10 ^3/uL (0.4-5.4); Lymphocytes % (auto) 11.7 % (10.0-50.0); Mean Corpuscular Hemoglobin 30.3 pg (28.0-32.0); Mean Corpuscular Hgb Conc. 33.9 g/dL (32.0-36.0); Mean Corpuscular Volume 89.4 fL (80.0-100.0); Monocytes % (auto) 9.8 % (0.0-12.0); Neutrophils % (auto) 76.8 % (37.0-80.0); Platelet Count (auto) 335 10^3/uL (140-450); Red Blood Cells 3.93 10^6/uL (4.0-5.20); Red Cell Distribution Width 14.4 % (11.8-14.3); White Blood Cell 10.5 10^3/uL (4.4-10.8)
[2025-04-24 06:28] LABS: Alanine Aminotransferase 23 U/L (7-40); Albumin 3.5 g/dL (3.2-4.8); Alkaline Phosphatase 73 U/L (46-116); Anion Gap 10 (5-15); BUN/Creatinine Ratio 11.9 (10.0-20.0); Bilirubin, Total 0.3 mg/dL (0.2-1.0); Blood Urea Nitrogen 18 mg/dL (9-23); Carbon Dioxide 23 mmol/L (20-31); Chloride 102 mmol/L (98-107); Potassium 3.9 mmol/L (3.5-5.1); Total Protein 6.1 g/dL (5.7-8.2)
[2025-04-24 06:29] LABS: Calcium 8.4 mg/dL (8.7-10.4); Glucose 153 mg/dL (74-106); Sodium 135 mmol/L (136-145)
[2025-04-24 07:30] LABS: Aspartate Aminotransferase 23 U/L (13-40)
[2025-04-24 09:00] VITALS: BP 152/61; PULSE 93; RESP 18; TEMP 98.4; O2SAT 96
[2025-04-24] MEDS ORDERED: IBUP-1453 PO (09:41)
[2025-04-24] MEDS ORDERED: AMOX500T86 PO (09:41)
[2025-04-24] MEDS ORDERED: METR-344 PO (09:41)
--- NOTE | 2025-04-24 10:06 | DVHDSRES ---
Discharge Summary Date of Admission Resident Creating Document: PANFILO VALDES RESIDENT Apr 16, 2025 at 21:31 Date of Discharge: Apr 24, 2025 Admitting Diagnosis Pyelonephritis, cholecystitis Labs/Diagnostic Data: Laboratory Results Test 04/24/25 05:41 04/24/25 00:18 04/23/25 05:44 04/19/25 15:38 White Blood Count 10.5 10^3/uL (4.4-10.8) Red Blood Count 3.93 10^6/uL (4.0-5.20) Hemoglobin 11.9 g/dL (12.2-16.2) Hematocrit 35.2 % (36.0-46.0) Mean Corpuscular Volume 89.4 fL (80.0-100.0) Mean Corpuscular Hemoglobin 30.3 pg (28.0-32.0) Mean Corpuscular Hemoglobin Concent 33.9 g/dL (32.0-36.0) Red Cell Distribution Width 14.4 % (11.8-14.3) Platelet Count 335 10^3/uL (140-450) Mean Platelet Volume 7.9 fL (6.9-10.8) Neutrophils (%) (Auto) 76.8 % (37.0-80.0) Lymphocytes (%) (Auto) 11.7 % (10.0-50.0) Monocytes (%) (Auto) 9.8 % (0.0-12.0) Eosinophils (%) (Auto) 1.4 % (0.0-7.0) Basophils (%) (Auto) 0.3 % (0.0-2.0) Neutrophils # (Auto) 8.0 10 ^3/uL (1.6-8.6) Lymphocytes # (Auto) 1.2 10 ^3/uL (0.4-5.4) Monocytes # (Auto) 1.0 10 ^3/uL (0-1.3) Eosinophils # (Auto) 0.1 10 ^3/uL (0-0.8) Basophils # (Auto) 0 10 ^3/uL (0-0.2) Nucleated Red Blood Cells 0.0 % Sodium Level 135 mmol/L (136-145) Potassium Level 3.9 mmol/L (3.5-5.1) Chloride Level 102 mmol/L (98-107) Carbon Dioxide Level 23 mmol/L (20-31) Anion Gap 10 (5-15) Blood Urea Nitrogen 18 mg/dL (9-23) Creatinine 1.51 mg/dL (0.550-1.02) Glomerular Filtration Rate Calc 33 mL/min (>90) BUN/Creatinine Ratio 11.9 (10.0-20.0) Serum Glucose 153 mg/dL (74-106) Calcium Level 8.4 mg/dL (8.7-10.4) Total Bilirubin 0.3 mg/dL (0.2-1.0) Aspartate Amino Transferase (AST) 23 U/L (13-40) Alanine Aminotransferase (ALT) 23 U/L (7-40) Alkaline Phosphatase 73 U/L (46-116) Total Protein 6.1 g/dL (5.7-8.2) Albumin 3.5 g/dL (3.2-4.8) POC Glucose 152 mg/dl (70-106) Amylase Level 74 U/L (30-118) Lipase 66 U/L (12-53) Prothrombin Time 11.8 sec (9.3-11.8) Prothrombin Time INR 1.13 (0.9-1.15) Activated Partial Thromboplast Time 36.7 SEC (24.5-34.5) Test 04/17/25 06:32 04/16/25 17:55 04/16/25 17:53 Magnesium Level 2.3 mg/dL (1.6-2.6) Urine Color Colorless (Yellow) Urine Clarity Turbid (Clear) Urine pH 6.0 (5.0-9.0) Urine Specific [place] 1.015 (1.001-1.035) Urine Protein Negative (Negative) Urine Ketones Negative (Negative) Urine Blood Negative /uL (Negative) Urine Nitrite Negative (Negative) Urine Bilirubin Negative (Negative) Urine Urobilinogen Normal mg/dL (Negative) Urine Leukocyte Esterase 3+ /uL (Negative) Urine RBC 4 /hpf (0 - 4) Urine Microscopic WBC 571 /HPF (0-5) Urine Squamous Epithelial Cells Few /hpf (<5) Urine Bacteria Few /hpf (None Seen) Urine Glucose 4+ mg/dL (Normal) Urine Opiates Screen Neg (NEGATIVE) Urine Fentanyl Screen Neg (NEGATIVE) Urine Barbiturates Screen Neg (NEGATIVE) Urine Phencyclidine Screen Neg (NEGATIVE) Urine Amphetamines Screen Neg (NEGATIVE) Urine Benzodiazepines Screen Neg (NEGATIVE) Urine Cocaine Screen Neg (NEGATIVE) Urine Cannabinoids Screen Neg (NEGATIVE) Hemoglobin A1c 7.0 % A1C (<5.7) Triglycerides Level 179 mg/dL (< 150) Cholesterol Level 141 mg/dL (< 200) LDL Cholesterol 85 mg/dL (< 100) HDL Cholesterol 32 mg/dL (40-59) Other Laboratory Tests 04/24/25 05:41 Brief Hx & Hospital Course: HPI: 89-year-old female with past medical history of primary hypertension, type 2 diabetes mellitus, pacemaker placement (has a appointment for April 29 to check battery), CKD stage IIIB, dyslipidemia, who presented to the ED brought by her daughter due to bilateral lower back flank pain. The patient states that symptoms started three days ago consistent with bilateral flank pain that is rated as a 9/10 on the pain scale and is described as a dual pain localized in the flanks with no specific pattern of radiation. The patient also reported recent constipation but had two bowel movements earlier today before coming to the ED. The patient denies fever, chills, dysuria, burning sensation while urinating, chest pain, shortness of breath or any other associated symptoms. Summary: Patient was diagnosed with pyelonephritis started IV ceftriaxone, Abdominal ultrasound : Distended gallbladder with layering sludge. Dilated common bile duct. HIDA showing: Findings consistent with cystic duct obstruction. patient also diagnosed date cholecystitis and underwent cholecystectomy on 04/21/2025, LYNNETTE drain was placed and draining serosanguineous fluid, patient had appropriate tenderness on her surgical site and was getting pain management. Today patient has minimal discharged on LYNNETTE drain and intra serosanguineous, Stop Lantus as pt is having low blood sugar. Today patient is going to be discharged with Augmentin 500 mg b.i.d. for seven days and Flagyl 500 mg b.i.d. for seven days. Advised patient to Follow up with a started on, Dr. Mansfield has a schedule, to remove LYNNETTE drain and subsequent follow up the surgical site. Follow up with PCP in 1 week, reassess insulin dose because pressure is running low blood glucose Operations or Procedures Patient: AMAN ESCOBAR Acct: [id number] : 1935 Loc: [facility] Age/Sex: 89/F Room: [facility] / Bed: A Attending Phy: PANFILO VALDES RESIDENT DATE OF SURGERY: 04/21/2025 PREOPERATIVE DIAGNOSES: * Cholelithiasis. * Cholecystitis. POSTOPERATIVE DIAGNOSES: * Cholelithiasis. * Cholecystitis. SURGEON: Channing Mansfield MD TUB WASHER: Jae Toledo NP ANESTHESIA: General endotracheal, . PROCEDURES: * Laparoscopy. * Laparoscopic cholecystectomy. DESCRIPTION OF PROCEDURE: Under general endotracheal anesthesia with the patient's skin prepped and draped, a supraumbilical incision was made and Veress needle inserted by the hanging drop technique to establish pneumoperitoneum to 15 mmHg pressure by insufflation with carbon dioxide. With the abdomen fully distended, the needle was removed and replaced with a 5 mm trocar port through which a 0-degree viewing laparoscope was inserted and under direct vision, 5 and 10 mm ports inserted through the right anterior axillary line at the level of the umbilicus and through the subxiphoid skin in the midline. The instrumentation was then introduced and laparoscopy was performed revealing no obvious unexpected pathology. The gallbladder was massively enlarged. It was aspirated of bile and the bile was submitted for cultures and sensitivities. The gallbladder was then placed on tension cephalad and the cystic duct and cystic artery were identified, circumferentially dissected, skeletonized, and traced into the hepatocystic triangle system to minimize the potential for an inadvertent injury to the common bile duct. The cystic duct and cystic artery were then divided close to the gallbladder again attempting to avoid any injury to the common bile duct. Subsequently, with minimal use of cautery due to the patient's AICD, the gallbladder was resected from its liver bed mostly by sharp dissection and blunt dissection again with minimal cautery use. The gallbladder that was fully mobilized was then placed into a specimen extraction bag and removed from the peritoneal cavity through the 10 mm port site. The right upper quadrant was irrigated. Irrigant was aspirated. Small amount of hemostatic SNoW was applied to the liver bed which was denuded and then a 10 mm Leobardo-Kothari drain was inserted underneath the right lobe of the liver and exteriorized through the right flank 5 mm trocar port site and secured with a 2-0 nylon suture. Following assurance of complete hemostasis at the termination of the procedure, there was no evidence of bleeding from either the liver bed or the port sites. The instrumentation was withdrawn. Pneumoperitoneum was evacuated. Fascia defect was closed using 0 Vicryl. Wounds were approximated using Monocryl sutures, Dermabond glue, and Steri-Strips. The patient remained stable throughout the procedure and left the operating room following an accurate needle and sponge count. The patient's granddaughter was thoroughly informed in the waiting area. MD FERNANDA Gonzalez/KYRA/JASON TID: [id number] RECEIPT: [id number] DICTATED BY:CHANNING MANSFIELD MD DICTATED DATE/TIME:04/21/25623 ELECTRONICALLY SIGNED BY:CHANNING MANSFIELD MD 04/23/25 1218 ELECTRONICALLY CO-SIGNED BY: Condition at Discharge: Fair Final Diagnosis/Problems List # Acute bilateral flank pain, due to pyelonephritis. 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 Activity: No Restrictions, As Tolerated Follow Up/Referral: Follow up with a started on, Dr. Mansfield has a schedule, to remove LYNNETTE drain and subsequent follow up the surgical site Follow up with PCP in 1 week, reassess insulin dose because pressure is running low blood glucose Medications: Augmentin 500 mg BID X 7 days Flagyl 500 mg BID x 7 days - ibuprofen 400 mg TID as needed Continue other home medications. Discharge Statement: "Patient was advised to return to the ER or call 911 if any headaches, dizziness, shortness of breath, chest pain, abdominal pain, bleeding, fevers, or worsening of medical condition. Patient was counseled about treatment plan, medications, possible side effects, patientverbalized understanding. All questions were answered to the best of my ability. This discharge took greater then 30 minutes in planning, reviewing documentation, counseling the patient, and discussing with other team members." ASSESSMENT ASSESSMENT Assessment # Acute bilateral flank pain, # Possible pyelonephritis. 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
[2025-04-24 13:00] VITALS: BP 155/68; PULSE 91; RESP 20; TEMP 97.8; O2SAT 96
== END 2025-04-24 13:55 | disposition home or self-care (01) | DRG 417 ==
LOC: ER 17:23 → OVERFLOW 21:31 → EAST 04-17 09:20
PROVIDERS: ADMIT Internal Medicine Geriatric Medicine; ATTEND Emergency Medicine
PROC: 0FT44ZZ Resection of Gallbladder, Percutaneous Endoscopic Approach (ICD-10-PCS; principal; 2025-04-21 07:21)
DX: K80.00 Calculus of gallbladder with acute cholecystitis without obstruction (principal); N17.0 Acute kidney failure with tubular necrosis; N12 Tubulo-interstitial nephritis, not specified as acute or chronic; N18.32 Chronic kidney disease, stage 3b; E87.6 Hypokalemia; D72.829 Elevated white blood cell count, unspecified; E78.5 Hyperlipidemia, unspecified; E86.0 Dehydration; I12.9 Hypertensive chronic kidney disease with stage 1 through stage 4 chronic kidney disease, or unspecified chronic kidney disease; E11.22 Type 2 diabetes mellitus with diabetic chronic kidney disease; K59.00 Constipation, unspecified; Z88.0 Allergy status to penicillin; Z79.82 Long term (current) use of aspirin; Z79.899 Other long term (current) drug therapy; Z90.710 Acquired absence of both cervix and uterus; Z95.810 Presence of automatic (implantable) cardiac defibrillator; Z83.3 Family history of diabetes mellitus
CPT/HCPCS: 36415; 71045; 74176; 76700; 78226; 80048; 80053; 80061; 80307; 81001; 82150; 82247; 82962; 83036; 83690; 83735; 85025; 85610; 85730; 86850; 86900; 86901; 87070; 87075; 87086; 87205; 93306; 96374; G0378; J1815; J1885; J2003; J2470; J2704; J3480; J3490

== ENCOUNTER 2025-05-10 10:39 | Emergency (ER) | payer OTHER ==
[~2025-05-10] VITALS: Ht 152.4 cm; Wt 51.4 kg
[~2025-05-10 10:39] MED LIST changes: +AMOX500T86 PO; +IBUP-1453 PO; +METR-344 PO
--- NOTE | 2025-05-10 11:20 | ED.PDOC ---
Harmony. trauma (HPI) HPI Comments 89 y/o F, brought in by daughter with PMHx of HTN and DM presents to the ED for CC of s/p fall. Per patient's daughter, patient had a hard fall onto the kitchen floor last night (05/09/25) landing on her back and hitting her head. Following trauma, patient has a laceration to the back of her head. Daughter comments, patient is unable to recall events and does not remember falling. Daughter denies loss of consciousness, nausea, or vomiting. Chief Complaint: Head Injury Time Seen by MD: 11:00 Primary Care Provider: Jadiel Reviewed notes: Nurses Notes, Medications, Allergies Allergies: Coded Allergies: Ibuprofen (Verified Allergy, Unknown, 04/21/25) Penicillins (Verified Allergy, Unknown, 02/18/24) Home Meds Active Scripts Ibuprofen (Ibuprofen) 400 Mg Tab, 1 TAB PO TID PRN for 10 Days, #30 TAB 1 Refill Prov:PANFILO VALDES RESIDENT 04/24/25 Metronidazole (Flagyl) 500 Mg Tab, 500 MG PO BID for 7 Days, #14 TAB Prov:PANFILO VALDES RESIDENT 04/24/25 Amoxicillin & Pot Clavulanate (Augmentin) 500 Mg Tab, 500 MG PO BID for 7 Days, #14 TAB Prov:PANFILO VALDES RESIDENT 04/24/25 Atorvastatin Calcium (ATORVASTATIN CALCIUM) 40 Mg Tab, 40 MG PO DAILY for 90 Days, #90 TAB Prov:ALYSHA PIÑA MD 02/20/24 Aspirin (Aspirin Low Dose) 81 Mg Tab, 81 MG PO DAILY for 90 Days, #90 TAB Prov:ALYSHA PIÑA MD 02/20/24 Reported Medications Diclofenac Sodium (Topical) (Diclofenac Sodium) 1 % Gel, 1 APPLIC TOP QID 02/18/24 Oxybutynin Chloride (Oxybutynin Chloride) 5 Mg Tab, 1 TAB PO DAILY 02/18/24 Hctz (Hydrochlorothiazide) 25 Mg Tab, 1 TAB PO DAILY 02/18/24 Carvedilol (Coreg) 25 Mg Tab, 1 TAB PO BID 02/18/24 Empagliflozin (Jardiance) 10 Mg Tab, 1 TAB PO DAILY 02/18/24 Information Source: Patient Mode of Arrival: Ambulatory Severity: Moderate Timing: Days Duration: Since onset Prehospital treatment: None Location: Back, Head Location of laceration: Head Mechanism: Fall Associated signs and symtoms: None Past Medical History PAST MEDICAL HISTORY: DM, HTN Surgical History: Hysterectomy, Pacemaker, Tonsillectomy LOCKMAKER History: Denies all LOCKMAKER Hx Family History Family History: No family hx of Cancer, No family hx of DM, No family hx of Heart ke[place] Social History Smoker: Non-Smoker Alcohol: Denies ETOH Use Drugs: Denies Drug Use Lives In: Home Constitutional: denies: chills, diaphoresis, fatigue, fever, malaise, sweats, weakness, others EENTM: denies: blurred vision, double vision, ear bleeding, ear discharge, ear drainage, ear pain, ear ringing, eye pain, eye redness, hearing loss, mouth pain, mouth swelling, nasal discharge, nose bleeding, nose congestion, nose pain, photophobia, tearing, throat pain, throat swelling, voice changes, others Respiratory: denies: cough, hemoptysis, orthopnea, SOB at rest, shortness of breath, SOB with excertion, stridor, wheezing, others Cardiovascular: denies: chest pain, dizzy spells, diaphoresis, Dyspnea on exertion, edema, irregular heart beat, left arm pain, lightheadedness, palpitations, PND, syncope, others Gastrointestinal: denies: abdomen distended, abdominal pain, blood streaked bowels, constipated, diarrhea, dysphagia, difficulty swallowing, hematemesis, melena, nausea, poor appetite, poor fluid intake, rectal bleeding, rectal pain, vomiting, others Genitourinary: denies: abnormal vagina bleeding, burning, dyspareunia, dysuria, flank pain, frequency, hematuria, incontinence, pain, , vagina discharge, urgency, others Neurological: denies: dizziness, fainting, headache, left sided numbness, left sided weakness, numbness, paresthesia, pre-existing deficit, right sided numbness, right sided weakness, seizure, speech problems, tingling, tremors, weakness, others Musculoskeletal: denies: back pain, gout, joint pain, joint swelling, muscle pain, muscle stiffness, neck pain, others Integumetry: denies: bruises, change in color, change in hair/nails, dryness, laceration, lesions, lumps, rash, wounds, others Allergic/Immunocompromised: denies: Difficulty Healing, Frequent Infections, Hives, Itching, others Hematologic/Lymphatic: denies: anemia, blood clots, easy bleeding, easy bruising, swollen glands, others Endocrine: denies: excessive hunger, excessive sweating, excessive thirst, excessive urination, flushing, intolerance to cold, intolerance to heat, unexplained weight gain, unexplained weight loss, others Psychiatric: denies: anxiety, bipolar disorder, depression, hopeless, panic disorder, schizophrenia, sleepless, suicidal, others All Other Systems: Reviewed and Negative Physical Exam General Appearance: Moderate Distress HEENT: Normal ENT Inspection, Pharynx Normal, TMs Normal Neck: Full Range of Motion, Non-Tender, Normal, Normal Inspection Respiratory: Chest Non-Tender, Lungs Clear, No Accessory Muscle Use, No Respiratory Distress, Normal Breath Sounds Cardiovascular: No Edema, No JVD, No Murmur, No Gallop, Normal Peripheral Pulses, Regular Rate/Rhythm Breast Exam: Deferred Gastrointestinal: No Organomegaly, Non Tender, No Pulsatile Mass, Normal Bowel Sounds, Soft Genitalia: Deferred Pelvic: Deferred Rectal: Deferred Extremities: No calf tenderness, Normal capillary refill, Normal inspection, Normal range of motion, Non-tender, No pedal edema Musculoskeletal : Apperance: Normal Neurologic: Alert, physician in private practice II-XII nml as Tested, No Motor Deficits, Normal Affect, Normal Mood, No Sensory Deficits Cerebellar Function: Normal Reflexes: Normal Skin: Dry, Normal Color, Warm Peripheral Pulses: 3+ Radial (R), 3+ Radial (L) Lymphatic: No Adenopathy Was a procedure done? Was a procedure done?: No Differential Diagnosis Multiple Trauma: Closed Head Injury, Fractures, Abrasions, Contusion, Hematoma, Laceration X-Ray, Labs, Meds, VS Vital Signs Date Time Temp Pulse Resp B/P (MAP) Pulse Ox O2 Delivery O2 Flow Rate FiO2 05/10/25 10:48 97.3 71 16 132/59 (83) 96 97.3 Lab Test 05/10/25 10:54 Range/Units POC Glucose 181 H 70-106 mg/dl Patient alert. Status post fall causing head injury yesterday. Vitals stable. Answering questions. Blood sugar slightly elevated. CT of the head reviewed does not show any acute changes. Explained to the family that she will need a MRI. Insists on going home. Patient does not like to stay in hospital. Explained to the family. Was told to follow up with her primary care physician. Was told to come back if there is any problem. Time of 1ST Reevaluation: 11:30 Reevaluation 1ST: Improved Patient Education/Counseling: Diagnosis, Treatment Family Education/Counseling: No Family Present Departure 1 Departure Time of Disposition: 11:52 Impression: Primary Impression: Head injury Qualified Codes: S09.90XA - Unspecified injury of head, initial encounter Disposition: HOME / SELF CARE / HOMELESS Condition: Good Discharged With: Self Critical Care Note Critical Care Time?: No Stability Stability form required: No Heart Score Heart Score: Heart Score Response (Comments) Value History N/A 0 EKG N/A 0 Age N/A 0 Risk Factors N/A 0 Troponin N/A 0 Total 0 I personally scribed for TINO PEGUERO MD ([email or web address]) on 05/10/25 at 11:20. Electronically submitted by Bisi Morataya ([email or web address]). TINO PEGUERO MD May 10, 2025 11:20
--- NOTE | 2025-05-10 11:34 | DVH ---
CT HEAD WITHOUT CONTRAST Indication: fall EXAM DATE: 05/10/2025 11:07 AM COMPARISON: CT HEAD WITHOUT CONTRAST on DOS: 02/19/24, CT HEAD WITHOUT CONTRAST on DOS: 02/18/24 TECHNIQUE: CT of the head without intravenous contrast. RADIATION DOSE: CTDIvol: 52 mGy, DLP: 1022 mGy*cm FINDINGS: There is no intracranial hemorrhage. There is no extra-axial fluid, mass, mass effect or midline shif t. The ventricles are midline and normal in size. Basilar cisterns are patent. There are [id number] rate periventricular and subcortical white matter chronic microvascular ischemic changes. 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 Mild global cerebr al volume loss. The paranasal sinuses and mastoids are well-pneumatized. Postsurgical changes of the orbits. IMPRESSION: No intracranial hemorrhage or mass effect. 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 Mild global cerebral volume loss.
[2025-05-10 12:37] VITALS: BP 149/61; PULSE 67; RESP 18; TEMP 98.1; O2SAT 98
== END 2025-05-10 12:40 | disposition home or self-care (01) ==
LOC: ER 10:39
DX: S01.01XA Laceration without foreign body of scalp, initial encounter (principal); I10 Essential (primary) hypertension; E11.9 Type 2 diabetes mellitus without complications; R51.9 Headache, unspecified; Z79.82 Long term (current) use of aspirin; Z79.84 Long term (current) use of oral hypoglycemic drugs; Z79.899 Other long term (current) drug therapy; Z90.710 Acquired absence of both cervix and uterus; Z95.0 Presence of cardiac pacemaker; Z88.0 Allergy status to penicillin; Z88.6 Allergy status to analgesic agent; W18.39XA Other fall on same level, initial encounter; Y93.89 Activity, other specified; Y92.090 Kitchen in other non-institutional residence as the place of occurrence of the external cause; Y99.8 Other external cause status
CPT/HCPCS: 70450; 82947; 82962

== ENCOUNTER 2025-05-23 13:02 | Inpatient (IN) | payer OTHER ==
[~2025-05-23] VITALS: Ht 157.5 cm; Wt 56.9 kg
[2025-05-23 13:23] VITALS: BP_SYST 141; BP_SYST 150; BP_DIAS 61; PULSE 60; RESP 16; RESP 17; TEMP 97.8; TEMP 98.1; O2SAT 97; O2SAT 98
[2025-05-23] MEDS ORDERED: ACETAMINOPHEN/CODEINE#3 (300/30mg) TAB PO PRN (13:30)
[2025-05-23] MEDS ORDERED: MORPHINE SULFATE INJ 2 MG/ml SYRG IV PRN (13:30)
[2025-05-23] MEDS ORDERED: NITROGLYCERIN 0.4 MG SL TAB SL PRN (13:30)
[2025-05-23 16:01] LABS: Hematocrit 36.9 % (36.0-46.0); Hemoglobin 12.8 g/dL (12.2-16.2); Mean Corpuscular Hemoglobin 30.1 pg (28.0-32.0); Mean Corpuscular Volume 86.6 fL (80.0-100.0); Nucleated Red Blood Cells % 0.0 %
[2025-05-23 16:10] LABS: Albumin 3.8 g/dL (3.2-4.8); Anion Gap 12 (5-15); BUN/Creatinine Ratio 28.1 (10.0-20.0); Bilirubin, Total 0.6 mg/dL (0.2-1.0); Calcium 9.0 mg/dL (8.7-10.4); Carbon Dioxide 24 mmol/L (20-31); Total Protein 6.3 g/dL (5.7-8.2)
[2025-05-23 16:11] LABS: Alanine Aminotransferase 42 U/L (7-40); Alkaline Phosphatase 293 U/L (46-116); Blood Urea Nitrogen 78 mg/dL (9-23); Chloride 92 mmol/L (98-107); Glucose 177 mg/dL (74-106); Potassium 2.8 mmol/L (3.5-5.1); Sodium 128 mmol/L (136-145)
[2025-05-23 16:30] VITALS: BP 152/67; PULSE 60; RESP 17; TEMP 98.1; O2SAT 97
--- NOTE | 2025-05-23 17:46 | DVHHP2 ---
Admitting Diagnosis: Biliary drainage History of Present Illness Patient is 89 years old woman, recently had a laparoscopic cholecystectomy presented hospital with biliary drainage. Patient states she recently had a laparoscopic cholecystectomy and drain was placed. Patient denies abdominal pain but states having persistent biliary drainage. No fever or chills. No nausea vomiting constipation or diarrhea Patient Family History: Diabetes mellitus G8 MOTHER, Onset: - Patient's father is G8 FATHER, Onset: - Allergies: Coded Allergies: Ibuprofen (Verified Allergy, Unknown, 04/21/25) Penicillins (Verified Allergy, Unknown, 02/18/24) Home Meds Active Scripts Ibuprofen (Ibuprofen) 400 Mg Tab, 1 TAB PO TID PRN for 10 Days, #30 TAB 1 Refill Prov:PANFILO VALDES RESIDENT 04/24/25 Metronidazole (Flagyl) 500 Mg Tab, 500 MG PO BID for 7 Days, #14 TAB Prov:PANFILO VALDES RESIDENT 04/24/25 Amoxicillin & Pot Clavulanate (Augmentin) 500 Mg Tab, 500 MG PO BID for 7 Days, #14 TAB Prov:PANFILO VALDES RESIDENT 04/24/25 Atorvastatin Calcium (ATORVASTATIN CALCIUM) 40 Mg Tab, 40 MG PO DAILY for 90 Days, #90 TAB Prov:ALYSHA PIÑA MD 02/20/24 Aspirin (Aspirin Low Dose) 81 Mg Tab, 81 MG PO DAILY for 90 Days, #90 TAB Prov:ALYSHA PIÑA MD 02/20/24 Reported Medications Pantoprazole Sodium (PANTOPRAZOLE SODIUM) 40 Mg Inj, 40 MG PO DAILY, INJ 05/23/25 Diclofenac Sodium (Topical) (Diclofenac Sodium) 1 % Gel, 1 APPLIC TOP QID 02/18/24 Oxybutynin Chloride (Oxybutynin Chloride) 5 Mg Tab, 1 TAB PO DAILY 02/18/24 Hctz (Hydrochlorothiazide) 25 Mg Tab, 1 TAB PO DAILY 02/18/24 Carvedilol (Coreg) 25 Mg Tab, 1 TAB PO BID 02/18/24 Empagliflozin (Jardiance) 10 Mg Tab, 1 TAB PO DAILY 02/18/24 Current Medications Current Medications Medications (Trade) Dose Ordered Sig/Red Route PRN Reason Start Time Stop Time Status Last Admin Nitroglycerin (Ntrostat Sublingual) 0.4 mg Q5MINP PRN SL FOR CHEST PAIN 05/23/25 13:30 Morphine Sulfate 2 mg Q30M PRN IV FOR CHEST PAIN 05/23/25 13:30 Potassium Chloride/Dextrose/ Sod Cl 1,000 ml @ 100 mls/hr Q10H IV 05/23/25 13:30 05/23/25 17:48 Acetaminophen/ Codeine Phosphate (Tylenol W/Cod #3 Tablet) 1 tab Q4HP PRN PO MODERATE PAIN (4-6 PAIN SCALE) 05/23/25 13:30 Aspirin (Ecotrin Enteric Coated Tablet) 81 mg DAILY PO 05/24/25 10:00 UNV Empaglifozin (Jardiance) 10 mg DAILY PO 05/24/25 10:00 UNV Hydrochlorothiazide (hydroCHLOROthiazide TABLET) 25 mg DAILY PO 05/24/25 10:00 UNV Patient Own Medication 40 mg DAILY PO 05/24/25 10:00 UNV Patient Own Medication 1 tab BID PO 05/23/25 22:00 UNV Vital Signs Vital Signs Date Time Temp Pulse Resp B/P (MAP) Pulse Ox O2 Delivery O2 Flow Rate FiO2 05/23/25 16:30 98.1 60 17 152/67 (95) 97 98.1 05/23/25 13:23 Room Air* 0 21 Physical Exam Generally-89 years old, well nourished well developed. No apparent distress HEENT-atraumatic normocephalic Heart-rate and rhythm Lungs clear auscultate Abdomen soft nontender nondistended. Positive drain right lower abdomen Vital-no edema or cyanosis Neuro-AO x3, no focal deficits SEPSIS Sepsis Screen Physician Orders Admit (05/23/25 13:16) Oxygen By Nasal Cannula (05/23/25 13:16) Nitroglycerin Sublingual (Ntrostat Subli (05/23/25 13:30) Morphine Sulfate Injection (05/23/25 13:30) Stat Ekg For Chest Pain (05/23/25 13:16) Notify Md Of Changes From Base (05/23/25 13:16) Emergency Dysrhythmia Protocol (05/23/25 13:16) Rhythm Strips Once Every Shift (05/23/25 13:16) Regular Diet (05/23/25 Lunch) D5w/Sod Chl 0.45%/Kcl 20meq (05/23/25 13:30) Acetaminophen/Codeine Tablet (Tylenol W/ (05/23/25 13:30) Nm Hida Scan (05/23/25 13:16) * Hospitalist Consult (05/23/25 ) Aspirin Enteric Coated Tablet (Ecotrin E (05/24/25 10:00) Empagliflozin (Jardiance) (05/24/25 10:00) Hydrochlorothiazide Tablet (Hydrochlorot (05/24/25 10:00) (Nf) Atorvastatin Calcium (05/24/25 10:00) (Nf) Carvedilol (Coreg) (05/23/25 22:00) Vital Signs Date Time Temp Pulse Resp B/P (MAP) Pulse Ox O2 Delivery O2 Flow Rate FiO2 05/23/25 16:30 98.1 60 17 152/67 (95) 97 98.1 05/23/25 13:23 97.8 60 17 141/61 (87) 98 97.8 05/23/25 13:23 60 16 98 Room Air* 0 21 05/23/25 13:23 98.1 60 17 150/61 (90) 97 98.1 Laboratory Tests Test 05/23/25 15:28 White Blood Count 12.2 10^3/uL (4.4-10.8) H Medications Medications Dose Ordered Sig/Red Route Start Time Stop Time Status Last Admin Dose Admin Potassium Chloride/Dextrose/ Sod Cl 1,000 ml @ 100 mls/hr Q10H IV 05/23/25 13:30 05/23/25 17:48 Results Labs Test 05/23/25 15:28 Range/Units White Blood Count 12.2 H 4.4-10.8 10^3/uL Red Blood Count 4.26 4.0-5.20 10^6/uL Hemoglobin 12.8 12.2-16.2 g/dL Hematocrit 36.9 36.0-46.0 % Mean Corpuscular Volume 86.6 80.0-100.0 fL Mean Corpuscular Hemoglobin 30.1 28.0-32.0 pg Mean Corpuscular Hemoglobin Concent 34.8 32.0-36.0 g/dL Red Cell Distribution Width 13.6 11.8-14.3 % Platelet Count 290 140-450 10^3/uL Mean Platelet Volume 7.6 6.9-10.8 fL Neutrophils (%) (Auto) 81.4 H 37.0-80.0 % Lymphocytes (%) (Auto) 8.8 L 10.0-50.0 % Monocytes (%) (Auto) 9.1 0.0-12.0 % Eosinophils (%) (Auto) 0.4 0.0-7.0 % Basophils (%) (Auto) 0.3 0.0-2.0 % Neutrophils # (Auto) 9.9 H 1.6-8.6 10 ^3/uL Lymphocytes # (Auto) 1.1 0.4-5.4 10 ^3/uL Monocytes # (Auto) 1.1 0-1.3 10 ^3/uL Eosinophils # (Auto) 0 0-0.8 10 ^3/uL Basophils # (Auto) 0 0-0.2 10 ^3/uL Nucleated Red Blood Cells 0.0 % Sodium Level 128 L 136-145 mmol/L Potassium Level 2.8 L 3.5-5.1 mmol/L Chloride Level 92 L 98-107 mmol/L Carbon Dioxide Level 24 20-31 mmol/L Anion Gap 12 5-15 Blood Urea Nitrogen 78 H 9-23 mg/dL Creatinine 2.78 H 0.550-1.02 mg/dL Glomerular Filtration Rate Calc 16 >90 mL/min BUN/Creatinine Ratio 28.1 H 10.0-20.0 Serum Glucose 177 H 74-106 mg/dL Calcium Level 9.0 8.7-10.4 mg/dL Total Bilirubin 0.6 0.2-1.0 mg/dL Aspartate Amino Transferase (AST) 41 H 13-40 U/L Alanine Aminotransferase (ALT) 42 H 7-40 U/L Alkaline Phosphatase 293 H 46-116 U/L Total Protein 6.3 5.7-8.2 g/dL Albumin 3.8 3.2-4.8 g/dL Primary Diagnosis Biliary drainage Status post lap choly Plan Patient has biliary drain and status post lap anjali. Concern for bile leak CBC, CMP Half NS D5 and 20 mEq for season 100 cc an hour Tylenol for pain control Regular diet Check HIDA scan Full code SCD for DVT prophylaxis Plan discussed with: Patient Problems List: (1) Postoperative bile leak Date of Service: May 23, 2025 Billing Provider: ANDRAE BLAKELY MD Common Visit Codes: [id number] INP/OBS CARE (MOD) ANDRAE BLAKELY MD May 23, 2025 17:46
[2025-05-23] MEDS: D5W/SOD CHL 0.45%/KCL 20MEQ 1,000 ML IV SCH (17:48)
--- NOTE | 2025-05-23 18:29 | DVH ---
EXAM: NM NM HIDA SCAN History: s/p lap anjali with persistant bilious drainage Comparison Study: NM NM HIDA SCAN on DOS: 04/18/25 TECHNIQUE: Following intravenous administration of 5.2 mCi of Tc-99m mebrofenin (Choletec), dynamic sequential images of the right upper abdomen were acquired for 60 minutes. FINDINGS: The liver demonstrates prompt radiotracer uptake with clearance from blood pool. No focal perfusion d efects were noted. There was prompt excretion of the radiotracer into the biliary tree, without evide nce of biliary dilatation or obstruction. No evidence of radiotracer extravasation. IMPRESSION: 1. No evidence of bile leak. 2. If further confirmation is needed, a contrast-enhanced MRCP may prove useful for further evaluatio n.
[2025-05-23] MEDS ORDERED: PANT1INJ3 PO (18:42)
[2025-05-23 20:53] VITALS: BP 133/56; PULSE 66; RESP 16; TEMP 97.8; O2SAT 95
[2025-05-24 00:47] VITALS: BP 142/52; PULSE 64; RESP 16; TEMP 97; O2SAT 97
[2025-05-24 05:00] VITALS: BP 131/63; PULSE 59; RESP 16; TEMP 98.3; O2SAT 97
[2025-05-24 09:00] VITALS: BP 154/41; PULSE 65; RESP 14; TEMP 98.4; O2SAT 96
[2025-05-24] MEDS: EMPAGLIFLOZIN 10 MG TAB PO SCH (09:32)
[2025-05-24] MEDS: ASPirin-EC 81 mg tab PO SCH (09:32)
[2025-05-24] MEDS: CARVEDILOL 12.5 MG TAB PO SCH (09:33)
[2025-05-24] MEDS: hydroCHLOROthiazide 25 MG TAB PO SCH (09:33)
[2025-05-24] MEDS: ATORVASTATIN 20 MG TAB PO SCH (09:34)
--- NOTE | 2025-05-24 10:49 | DVHPN2 ---
Subjective Patient denies any symptoms Reviewed: Care Plan, H&P, Labs, Medications Changes from previous H/P or p: No Changes General: Per HPI Objective Vitals Vital Signs Date Time Temp Pulse Resp B/P (MAP) Pulse Ox O2 Delivery O2 Flow Rate FiO2 05/24/25 09:33 65 154/41 05/24/25 09:00 98.4 14 96 98.4 05/24/25 08:00 Room Air* 0 21 Intake/Output Intake and Output 05/24/25 07:00 Intake Total 1540 ml Balance 1540 ml Intake Oral 385 ml IV Total 1155 ml # Voids 2 General Appearance: Alert, Oriented X3, Cooperative, No acute distress HEENT: Atraumatic, PERRLA Lungs: Clear to auscultation, Normal air movement Cardiovascular: Normal S1, Normal S2 Abdomen: Normal bowel sounds, Other (LYNNETTE drain with dark talked about and nephrotic generalized) Genitourinary: No Apparent Abnormalities Neuro: Normal gait, Normal speech Skin: Dry, Intact Psych/Mental Status: Mental status NL, Mood NL Medications Current Medications Medications Dose Ordered Sig/Red Route Start Time Stop Time Status Last Admin Dose Admin Nitroglycerin 0.4 mg Q5MINP PRN SL 05/23/25 13:30 Morphine Sulfate 2 mg Q30M PRN IV 05/23/25 13:30 Potassium Chloride/Dextrose/ Sod Cl 1,000 ml @ 100 mls/hr Q10H IV 05/23/25 13:30 05/24/25 03:36 100 MLS/HR Acetaminophen/ Codeine Phosphate 1 tab Q4HP PRN PO 05/23/25 13:30 Aspirin 81 mg DAILY PO 05/24/25 10:00 05/24/25 09:32 81 MG Empaglifozin 10 mg DAILY PO 05/24/25 10:00 05/24/25 09:32 10 MG Atorvastatin Calcium 40 mg DAILY PO 05/24/25 10:00 Carvedilol 25 mg BID PO 05/24/25 10:00 05/24/25 09:33 25 MG Metronidazole 100 ml @ 100 mls/hr Q8HR IV 05/24/25 14:00 UNV Levofloxacin/ Dextrose 100 ml @ 100 mls/hr Q48H IV 05/24/25 10:30 UNV Laboratory Results Laboratory Tests 05/23/25 15:28 Chemistry Test 05/23/25 15:28 Albumin 3.8 g/dL (3.2-4.8) Calcium Level 9.0 mg/dL (8.7-10.4) Total Protein 6.3 g/dL (5.7-8.2) LFT Test 05/23/25 15:28 Alanine Aminotransferase (ALT) 42 U/L (7-40) H Alkaline Phosphatase 293 U/L (46-116) H Aspartate Amino Transferase (AST) 41 U/L (13-40) H Total Bilirubin 0.6 mg/dL (0.2-1.0) Labs and/or images reviewed: Labs reviewed by me, Image(s) reviewed by me Assessment/Plan Assessment/Plan Impression: -status post cholecystectomy -accelerated hypertension -sepsis -acute kidney injury, vasomotor nephropathy -underlying CKD stage IIIB -diabetes mellitus type 2 Plan: -unable to perform MRCP given ICD. CT scan abdomen pelvis without contrast- continue clear liquid diet -start IV antibiotic therapy with Levaquin and Flagyl -potassium replacement -IV hydration -Repeat CMP, CBC -regular insulin sliding -blood culture -plan of care discussed with the patient's daughter and patient bedside. All questions answered Total time spent with patient discussing and formulating plan of care: 35 minutes. This medical document was created using an electronic medical record system with [employer] dictation system. Although this document has been carefully reviewed, there may still be some phonetic and typographical errors. These areas are purely typographical due to imperfections of the software programs, and do not reflect any compromise in the patient's medical care. Plan discussed with: Patient, Other (RN) My Orders Orders - GEORGIA MARCANO NP Procedure Category Date Status Time Comprehensive LAB 05/24/25 Logged Metabolic Panel 10:25 Complete Blood Count LAB 05/24/25 Logged 10:25 Comprehensive LAB 05/25/25 Verified Metabolic Panel 04:00 Complete Blood Count LAB 05/25/25 Verified 04:00 Metronidazole PHA 05/24/25 Logged 500mg/100ml (Flagyl 14:00 Levofloxacin 500mg PHA 05/24/25 Logged (Levaquin 500mg/ 100m 10:30 Ct Ab Pel Wo Con-No CT 05/24/25 Verified Oral Or Iv 10:44 Date of Service: May 24, 2025 Billing Provider: GEORGIA MARCANO NP Common Visit Codes: [id number] INP/OBS CARE(HIGH) GEORGIA MARCANO SHIFT SUPERVISOR RN May 24, 2025 10:49
--- NOTE | 2025-05-24 12:03 | DVH ---
CLINICAL INFORMATION: Possible abscess in the right upper quadrant. TECHNIQUE: Axial CT images of the abdomen and pelvis were obtained without IV contrast. Coronal and s agittal reformatted images were obtained, reviewed, and stored. Evaluation of the parenchymal organs is limited without IV contrast. Evaluation of the bowel and mesentery is limited without oral contras t. All CT scans at this medical facility are performed using dose modulation techniques as appropriat e to a performed exam including the following: Automated exposure control was utilized; adjustment of the MA and/or KV according to patient size; and use of iterative reconstruction technique. CTDIvol = 5.35 mGy DLP = 257.53 mGy-cm COMPARISON: CT CT AB PEL WO CON-NO ORAL OR IV on DOS: 04/16/25 FINDINGS: There is motion artifact and beam hardening artifact limiting evaluation. Lung bases: Lung bases are clear. Liver: Grossly unremarkable in its noncontrast enhanced appearance. No abnormal density or focal lesi on identified. Biliary: Postsurgical changes of prior cholecystectomy. Surgical drain in place extending to the gall bladder fossa. There is a fluid density structure,medial to the surgical drain, abutting the duodenum and pancreatic head, measuring up to 3.4 x 2.4 x 2.8 cm. The common bile duct is not well-visualized separate from this structure andthe structure described above may be partly due to dilated common bi le duct. Spleen: Unremarkable. Pancreas: Grossly unremarkable in its noncontrast enhanced appearance. Adrenal glands: Unremarkable. No mass. Kidneys: No hydronephrosis. No renal or ureteral calculi. Aorta/Vascular: Dense arterial calcification. No abdominal aortic aneurysm. Retroperitoneum: No mass or lymphadenopathy. Bowel/mesentery: Nonspecific nondilated fluid-filled small bowel loops. No small bowel obstruction. A ppendix is visualized and appears unremarkable. Moderate stool in the colon. Pelvic organs: Uterus is surgically absent. Bladder: Unremarkable. No mass. Abdominal wall: No mass or hernia. Bones: No acute fracture or suspicious intraosseous lesion. IMPRESSION: 1. Postsurgical changes of prior cholecystectomy with surgical drain in place extending to the gallbl adder fossa. Fluid density structure near the gallbladder fossa and extending medial to the surgical drain, portions of which may be due to the common bile duct, which is poorly delineated in this locat ion. Possible superimposed fluid collection. 2. Nonspecific nondilated fluid-filled small bowel loops. Findings may be seen with ileus or enteriti s in the appropriate clinical setting. No small bowel obstruction. 3. Moderate stool in the colon.
[2025-05-24 12:08] LABS: Hematocrit 34.6 % (36.0-46.0); Hemoglobin 11.6 g/dL (12.2-16.2); Mean Corpuscular Hemoglobin 29.5 pg (28.0-32.0); Mean Corpuscular Volume 87.8 fL (80.0-100.0); Nucleated Red Blood Cells % 0.0 %
[2025-05-24 12:31] LABS: Alanine Aminotransferase 46 U/L (7-40); Albumin 3.5 g/dL (3.2-4.8); Alkaline Phosphatase 294 U/L (46-116); Anion Gap 10 (5-15); BUN/Creatinine Ratio 24.5 (10.0-20.0); Bilirubin, Total 0.4 mg/dL (0.2-1.0); Blood Urea Nitrogen 57 mg/dL (9-23); Calcium 8.8 mg/dL (8.7-10.4); Carbon Dioxide 22 mmol/L (20-31); Chloride 96 mmol/L (98-107); Glucose 266 mg/dL (74-106); Potassium 2.9 mmol/L (3.5-5.1); Sodium 128 mmol/L (136-145); Total Protein 6.1 g/dL (5.7-8.2)
[2025-05-24 13:00] VITALS: BP 136/42; PULSE 61; RESP 12; TEMP 97.9; O2SAT 98
--- NOTE | 2025-05-24 15:38 | DVHPN2 ---
Progress Note Date Seen: May 24, 2025 Medical Necessity Reason Pt with a Central, PICC or Fol: No Objective vital signs Vital Sign Date Time Temp Pulse Resp B/P (MAP) Pulse Ox O2 Delivery O2 Flow Rate FiO2 05/24/25 13:00 97.9 61 12 136/42 (73) 98 97.9 05/24/25 08:00 Room Air* 0 21 Total Intake and Output 05/23/25 05/23/25 05/24/25 14:59 22:59 06:59 Intake Total 300 ml 1240 ml Balance 300 ml 1240 ml medications Current Medications Medications Dose Ordered Sig/Red Route Start Time Stop Time Status Last Admin Dose Admin Nitroglycerin 0.4 mg Q5MINP PRN SL 05/23/25 13:30 Morphine Sulfate 2 mg Q30M PRN IV 05/23/25 13:30 Potassium Chloride/Dextrose/ Sod Cl 1,000 ml @ 100 mls/hr Q10H IV 05/23/25 13:30 05/24/25 14:00 100 MLS/HR Acetaminophen/ Codeine Phosphate 1 tab Q4HP PRN PO 05/23/25 13:30 Aspirin 81 mg DAILY PO 05/24/25 10:00 05/24/25 09:32 81 MG Empaglifozin 10 mg DAILY PO 05/24/25 10:00 05/24/25 09:32 10 MG Atorvastatin Calcium 40 mg DAILY PO 05/24/25 10:00 Carvedilol 25 mg BID PO 05/24/25 10:00 05/24/25 09:33 25 MG Metronidazole 100 ml @ 100 mls/hr Q8HR IV 05/24/25 14:00 05/24/25 14:46 100 MLS/HR Levofloxacin 50 ml @ 50 mls/hr Q48H IV 05/26/25 11:15 laboratory and microbiology Laboratory Tests 05/24/25 11:40 Test 05/24/25 11:40 Range/Units Serum Glucose 266 H 74-106 mg/dL Problem List/Assessment/Plan Problem List/Assessment/Plan 05/24/25 hida scan reviewed, drain with minimal non bilious drainage, drain removed without difficulty. will request nephrology consult due to abnormal renal function tests. Plan discussed with: Patient, Daughter CHANNING HERNANDEZ MD May 24, 2025 15:38
[2025-05-24] MEDS: POTASSIUM EFFERVESENT TAB 25 MEQ PO ONE (16:09)
[2025-05-24 17:00] VITALS: BP 138/44; PULSE 60; RESP 12; TEMP 97.4; O2SAT 94
[2025-05-24 21:00] VITALS: BP 159/70; PULSE 71; RESP 17; TEMP 97.8; O2SAT 97
[2025-05-25 01:00] VITALS: BP 134/57; PULSE 71; RESP 17; TEMP 97.9; O2SAT 96
[2025-05-25 05:00] VITALS: BP 140/66; PULSE 68; RESP 17; TEMP 97.6; O2SAT 97
[2025-05-25 06:23] LABS: Hematocrit 32.9 % (36.0-46.0); Hemoglobin 11.2 g/dL (12.2-16.2); Mean Corpuscular Hemoglobin 29.8 pg (28.0-32.0); Mean Corpuscular Volume 87.9 fL (80.0-100.0); Nucleated Red Blood Cells % 0.0 %
[2025-05-25 06:31] LABS: Albumin 3.4 g/dL (3.2-4.8); Anion Gap 8 (5-15); BUN/Creatinine Ratio 24.6 (10.0-20.0); Bilirubin, Total 0.5 mg/dL (0.2-1.0); Carbon Dioxide 24 mmol/L (20-31); Potassium 3.9 mmol/L (3.5-5.1); Total Protein 5.9 g/dL (5.7-8.2)
[2025-05-25 06:40] LABS: Alanine Aminotransferase 52 U/L (7-40); Alkaline Phosphatase 295 U/L (46-116); Blood Urea Nitrogen 50 mg/dL (9-23); Calcium 8.4 mg/dL (8.7-10.4); Chloride 96 mmol/L (98-107); Glucose 275 mg/dL (74-106); Sodium 128 mmol/L (136-145)
[2025-05-25 09:00] VITALS: BP 144/59; PULSE 65; RESP 16; TEMP 98; O2SAT 97
--- NOTE | 2025-05-25 09:24 | DVHPN2 ---
Subjective Date Seen: May 25, 2025 Post op day Post op day: 0 Patient reports: No new complaints, Feels better Nursing reports: No new complaints General: Normal HNT: Normal Cardiovascular: Normal Respiratory: Normal Gastrointestinal: Normal Genitourinary: Normal Musculoskeletal: Normal Neurological: Normal Objective Vitals Vital Sign Date Time Temp Pulse Resp B/P (MAP) Pulse Ox O2 Delivery O2 Flow Rate FiO2 05/25/25 05:00 97.6 68 17 140/66 (90) 97 97.6 05/24/25 20:00 Room Air* 0 21 Total Intake and Output 05/24/25 05/24/25 05/25/25 15:00 23:00 07:00 Intake Total 920 ml 798 ml 1300 ml Balance 920 ml 798 ml 1300 ml Medications Current Medications Medications Dose Ordered Sig/Red Route Start Time Stop Time Status Last Admin Dose Admin Nitroglycerin 0.4 mg Q5MINP PRN SL 05/23/25 13:30 Morphine Sulfate 2 mg Q30M PRN IV 05/23/25 13:30 Acetaminophen/ Codeine Phosphate 1 tab Q4HP PRN PO 05/23/25 13:30 Aspirin 81 mg DAILY PO 05/24/25 10:00 05/24/25 09:32 81 MG Empaglifozin 10 mg DAILY PO 05/24/25 10:00 05/24/25 09:32 10 MG Atorvastatin Calcium 40 mg DAILY PO 05/24/25 10:00 Carvedilol 25 mg BID PO 05/24/25 10:00 05/24/25 21:21 25 MG Metronidazole 100 ml @ 100 mls/hr Q8HR IV 05/24/25 14:00 05/25/25 05:04 100 MLS/HR Levofloxacin 50 ml @ 50 mls/hr Q48H IV 05/26/25 11:15 Lactated Ringer's 1,000 ml @ 125 mls/hr Q8H IV 05/25/25 08:30 UNV General: Normal Head/Eyes: Normal ENT: Normal Neck: Normal Lungs: Normal Cardiovascular: Normal, Regular rate and rhythm, Normal heart sound Abdominal: Normal, Soft Extremities: Normal Skin: Normal Neurological: Normal, Normal Speech Labs and Microbiology Laboratory Tests 05/25/25 05:17 Test 05/25/25 05:17 Range/Units Serum Glucose 275 H 74-106 mg/dL Ass/Plan Labs and/or images reviewed: Labs reviewed by me, Image(s) reviewed by me Problem List 05/24/25 hida scan reviewed, drain with minimal non bilious drainage, drain removed without difficulty. will request nephrology consult due to abnormal renal function tests. Assessment/Plan no new complaints patient states she feels better today denies nausea or vomiting, abdomens oft, non distended, labs reviewed discussed with Dr. Mansfield GI consult ordered suspect liver toxicity from Lipitor Plan discussed with patient, Dr. Mansfield Visit Coding Surgery Date of Service if different f: May 25, 2025 Billing Provider: CHANNING MANSFIELD MD Surgery Visit Codes: [id number] INP/OBS CARE(HIGH) SULY CAM NP May 25, 2025 09:24
--- NOTE | 2025-05-25 11:48 | DVHCONRES ---
Date Seen: May 25, 2025 Resident Creating Document: EMERITA CHOI RESIDENT Referring Physician DR MANSFIELD History of Present Illness This is a 89 year-old female with diabetes mellitus type 2 for the past 20 years on Lantus and glipizide, hypertension on hydrochlorothiazide and Coreg, CKD stage IIIB, laparoscopic cholecystectomy 04/21/2025 we will send to the ER by her surgeon Dr Mansfield for evaluation of persistent biliary drainage. Patient went for routine appointment, she had continuous drainage of biliary secretions and unfortunately to ER. CT abdomen showed possible superimposed fluid collection new GB fossa. Patient denies fever/chills/nausea/vomiting/diarrhea/abdominal pain. Per niece and daughter, patient has been experiencing generalized weakness, not eating or drinking well, not ambulating as compared to her state prior to surgery. Nephrology is consulted for elevated kidney numbers. Patient has baseline CKD stage IIIB but never had renal ultrasound. Patient seen and examined at the bedside. Mucous membranes dry. Ordered urine electrolytes. Family History: Diabetes mellitus G8 MOTHER, Onset: - Patient's father is G8 FATHER, Onset: - Allergies: Coded Allergies: Ibuprofen (Verified Allergy, Unknown, 04/21/25) Penicillins (Verified Allergy, Unknown, 02/18/24) Home Meds Active Scripts Ibuprofen (Ibuprofen) 400 Mg Tab, 1 TAB PO TID PRN for 10 Days, #30 TAB 1 Refill Prov:PANFILO VALDES RESIDENT 04/24/25 Metronidazole (Flagyl) 500 Mg Tab, 500 MG PO BID for 7 Days, #14 TAB Prov:PANFILO VALDES RESIDENT 04/24/25 Amoxicillin & Pot Clavulanate (Augmentin) 500 Mg Tab, 500 MG PO BID for 7 Days, #14 TAB Prov:PANFILO VALDES RESIDENT 04/24/25 Atorvastatin Calcium (ATORVASTATIN CALCIUM) 40 Mg Tab, 40 MG PO DAILY for 90 Days, #90 TAB Prov:ALYSHA PIÑA MD 02/20/24 Aspirin (Aspirin Low Dose) 81 Mg Tab, 81 MG PO DAILY for 90 Days, #90 TAB Prov:ALYSHA PIÑA MD 02/20/24 Reported Medications Pantoprazole Sodium (PANTOPRAZOLE SODIUM) 40 Mg Inj, 40 MG PO DAILY, INJ 05/23/25 Diclofenac Sodium (Topical) (Diclofenac Sodium) 1 % Gel, 1 APPLIC TOP QID 02/18/24 Oxybutynin Chloride (Oxybutynin Chloride) 5 Mg Tab, 1 TAB PO DAILY 02/18/24 Hctz (Hydrochlorothiazide) 25 Mg Tab, 1 TAB PO DAILY 02/18/24 Carvedilol (Coreg) 25 Mg Tab, 1 TAB PO BID 02/18/24 Empagliflozin (Jardiance) 10 Mg Tab, 1 TAB PO DAILY 02/18/24 Current Medications Current Medications Medications (Trade) Dose Ordered Sig/Red Route PRN Reason Start Time Stop Time Status Last Admin Metronidazole 100 ml @ 100 mls/hr Q8HR IV 05/24/25 14:00 05/25/25 05:04 Levofloxacin 50 ml @ 50 mls/hr Q48H IV 05/26/25 11:15 Lactated Ringer's 1,000 ml @ 125 mls/hr Q8H IV 05/25/25 08:30 Vital Signs Vital Signs Date Time Temp Pulse Resp B/P (MAP) Pulse Ox O2 Delivery O2 Flow Rate FiO2 05/25/25 10:27 65 144/59 05/25/25 09:00 98.0 16 97 98.0 05/25/25 08:31 Room Air* 0 21 Physical Exam Patient lying in bed, in no acute distress General: Thin-appearing, afebrile, palor, mucosae are moist Cardiovascular: Regular S1 and S2. No murmurs, gallops or rubs. No JVD elevation. No pedal edema Respiratory: Normal B/L air entry on room air. Clear lung sounds on auscultation Abdomen: Soft, mildly tender in right lower quadrant, nondistended, normoactive bowel sounds, no rebound tenderness, no organomegaly, no masses. No drain seen, drain site has bandage, dry clean intact Genitourinary: Deferred MSK/skin: Mobilizes 4 limbs. Skin is dry and warm Neurological: No motor, no sensitive deficits, normal speech. Pupils are isocoric and reactive. Psych/Mental Status: A/Ox3 Labs/Diagnostic Data Labs Test 05/25/25 05:17 Range/Units White Blood Count 14.5 H 4.4-10.8 10^3/uL Red Blood Count 3.75 L 4.0-5.20 10^6/uL Hemoglobin 11.2 L 12.2-16.2 g/dL Hematocrit 32.9 L 36.0-46.0 % Mean Corpuscular Volume 87.9 80.0-100.0 fL Mean Corpuscular Hemoglobin 29.8 28.0-32.0 pg Mean Corpuscular Hemoglobin Concent 33.9 32.0-36.0 g/dL Red Cell Distribution Width 13.6 11.8-14.3 % Platelet Count 273 140-450 10^3/uL Mean Platelet Volume 7.9 6.9-10.8 fL Neutrophils (%) (Auto) 84.8 H 37.0-80.0 % Lymphocytes (%) (Auto) 6.2 L 10.0-50.0 % Monocytes (%) (Auto) 8.7 0.0-12.0 % Eosinophils (%) (Auto) 0.1 0.0-7.0 % Basophils (%) (Auto) 0.2 0.0-2.0 % Neutrophils # (Auto) 12.3 H 1.6-8.6 10 ^3/uL Lymphocytes # (Auto) 0.9 0.4-5.4 10 ^3/uL Monocytes # (Auto) 1.3 0-1.3 10 ^3/uL Eosinophils # (Auto) 0 0-0.8 10 ^3/uL Basophils # (Auto) 0 0-0.2 10 ^3/uL Nucleated Red Blood Cells 0.0 % Sodium Level 128 L 136-145 mmol/L Potassium Level 3.9 3.5-5.1 mmol/L Chloride Level 96 L 98-107 mmol/L Carbon Dioxide Level 24 20-31 mmol/L Anion Gap 8 5-15 Blood Urea Nitrogen 50 H 9-23 mg/dL Creatinine 2.03 H 0.550-1.02 mg/dL Glomerular Filtration Rate Calc 23 >90 mL/min BUN/Creatinine Ratio 24.6 H 10.0-20.0 Serum Glucose 275 H 74-106 mg/dL Serum Osmolality 290 278-298 mOsm/kg Calcium Level 8.4 L 8.7-10.4 mg/dL Phosphorus Level 2.2 L 2.4-5.1 mg/dL Total Bilirubin 0.5 0.2-1.0 mg/dL Aspartate Amino Transferase (AST) 49 H 13-40 U/L Alanine Aminotransferase (ALT) 52 H 7-40 U/L Alkaline Phosphatase 295 H 46-116 U/L Total Protein 5.9 5.7-8.2 g/dL Albumin 3.4 3.2-4.8 g/dL Parathyroid Hormone (Intact) 63.1 18.4-80.1 pg/mL Microbiology Date/Time Source Procedure Growth Status 05/24/25 16:00 Voided Urine Urine Culture - Preliminary Resulted Assessment Acute kidney injury likely prerenal superimposed on CKD Mild hyponatremia-corrected sodium 131 Diabetes mellitus type 2-A1c 7.0 Hypokalemia Hypertension Anemia likely chronic kidney disease Status post laparoscopic cholecystectomy 04/21/25 BUN/creatinine ratio 24.6 FENA pending Urine electrolytes pending Per chart review, patient received D5 half NS for bags, now 1 LR Plan: Patient likely has poor oral intake, and volume depletion given BUN creatinine ratio greater than 20. Hyperglycemia exacerbating hyponatremia. 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 Follow up with urine electrolytes Strict I&Os Plan discussed with patient, daughter at bedside, niece over the phone in which all questions have been answered Case discussed with Dr. De Leon Addendum Patient seen and examined, plan discussed with resident. Agree with above, we will follow closely resume jardiance once YADIRA resolves hold hctz given hyponatremia Plan discussed with: Patient, Daughter, Other (Nurse) EMERITA CHOI RESIDENT May 25, 2025 11:48 JANUSZ DE LEON MD May 25, 2025 20:24
[2025-05-25] MEDS ORDERED: DEXTROSE (50%) 50ML SYRG IV PRN (12:00)
--- NOTE | 2025-05-25 12:21 | DVH ---
RENAL ULTRASOUND History: Acute kidney injury Comparison: None Technique: Multiple real-time sonographic images of the kidney and bladder were obtained in conjuncti on with Doppler imaging. Findings: Echogenic bilateral kidneys. The right kidney measures 9 cm and demonstrates no evidence of hydronephrosis, perinephric fluid moy ection, or shadowing stone. The left kidney measures 7 cm and demonstrates no evidence of hydronephrosis, perinephric fluid colle ction, or shadowing stone. Urinary bladder: Prevoid urinary bladder volume is 235 mL. Impression: Small and echogenic kidneys consistent with medical renal disease.
[2025-05-25 13:07] VITALS: BP 150/64; PULSE 63; RESP 16; TEMP 97.8; O2SAT 97
[2025-05-25] MEDS: LACTATED RINGER'S 1,000 ML IV SCH (13:30)
--- NOTE | 2025-05-25 13:56 | DVHPN2 ---
Subjective Patient denies any symptoms Reviewed: Care Plan, H&P, Labs, Medications Changes from previous H/P or p: No Changes General: Per HPI Objective Vitals Vital Signs Date Time Temp Pulse Resp B/P (MAP) Pulse Ox O2 Delivery O2 Flow Rate FiO2 05/25/25 13:07 97.8 63 16 150/64 (92) 97 97.8 05/25/25 08:31 Room Air* 0 21 Intake/Output Intake and Output 05/25/25 07:00 Intake Total 3018 ml Balance 3018 ml Intake Oral 798 ml IV Total 2220 ml # Voids 6 # Bowel Movements 2 General Appearance: Alert, Oriented X3, Cooperative, No acute distress HEENT: Atraumatic, PERRLA Lungs: Clear to auscultation, Normal air movement Cardiovascular: Normal S1, Normal S2 Abdomen: Normal bowel sounds, Other (LYNNETTE drain with dark talked about and nephrotic generalized) Genitourinary: No Apparent Abnormalities Neuro: Normal gait, Normal speech Skin: Dry, Intact Psych/Mental Status: Mental status NL, Mood NL Medications Current Medications Medications Dose Ordered Sig/Red Route Start Time Stop Time Status Last Admin Dose Admin Nitroglycerin 0.4 mg Q5MINP PRN SL 05/23/25 13:30 Morphine Sulfate 2 mg Q30M PRN IV 05/23/25 13:30 Acetaminophen/ Codeine Phosphate 1 tab Q4HP PRN PO 05/23/25 13:30 Aspirin 81 mg DAILY PO 05/24/25 10:00 05/25/25 10:25 81 MG Carvedilol 25 mg BID PO 05/24/25 10:00 05/25/25 10:27 25 MG Metronidazole 100 ml @ 100 mls/hr Q8HR IV 05/24/25 14:00 05/25/25 05:04 100 MLS/HR Levofloxacin 50 ml @ 50 mls/hr Q48H IV 05/26/25 11:15 Lactated Ringer's 1,000 ml @ 125 mls/hr Q8H IV 05/25/25 08:30 05/25/25 13:30 125 MLS/HR Diagnostic Test (Pha) 1 strip ACHS 05/25/25 17:00 Insulin Human Regular ACHS SC 05/25/25 17:00 Dextrose 50 ml UD PRN IV 05/25/25 12:00 Laboratory Results Laboratory Tests 05/25/25 05:17 Chemistry Test 05/25/25 05:17 Albumin 3.4 g/dL (3.2-4.8) Calcium Level 8.4 mg/dL (8.7-10.4) L Phosphorus Level 2.2 mg/dL (2.4-5.1) L Total Protein 5.9 g/dL (5.7-8.2) LFT Test 05/25/25 05:17 Alanine Aminotransferase (ALT) 52 U/L (7-40) H Alkaline Phosphatase 295 U/L (46-116) H Aspartate Amino Transferase (AST) 49 U/L (13-40) H Total Bilirubin 0.5 mg/dL (0.2-1.0) Microbiology Microbiology Date/Time Source Procedure Growth Status 05/24/25 16:00 Voided Urine Urine Culture - Preliminary Resulted 05/24/25 11:40 Blood Blood Culture - Preliminary NO GROWTH AFTER 24 HOURS OF INCUBATION. Resulted Labs and/or images reviewed: Labs reviewed by me, Image(s) reviewed by me Assessment/Plan Assessment/Plan Impression: -status post cholecystectomy -accelerated hypertension -sepsis -acute kidney injury, vasomotor nephropathy -underlying CKD stage IIIB -diabetes mellitus type 2 Plan: Events: Patient with slight bump in white blood cell count. Continue current therapy. -continue Levaquin and Flagyl -nephrology consultation -stop Lipitor -IV hydration -repeat labs in a.m. Total time spent with patient discussing and formulating plan of care: 35 minutes. This medical document was created using an electronic medical record system with [employer] dictation system. Although this document has been carefully reviewed, there may still be some phonetic and typographical errors. These areas are purely typographical due to imperfections of the software programs, and do not reflect any compromise in the patient's medical care. Plan discussed with: Patient, Other (RN) Date of Service: May 25, 2025 Billing Provider: GEORGIA MARCANO NP Common Visit Codes: [id number] INP/OBS CARE(HIGH) GEORGIA MARCANO NP May 25, 2025 13:56
--- NOTE | 2025-05-25 13:59 | DVHINCON2 ---
GI Consult Consult Note GI consult note Date of Consultation: 05/25/2025 Chief Complaint: Elevated liver enzymes Referring Physician: Dr. Mansfield H&P: 89-year-old female status post lap Cholecystectomy 04/21/2025 presents to the hospital with biliary drainage. Daughter at bedside translating. Patient denies abdominal pain. No nausea or vomiting. Last bowel movement yesterday. No melena or red blood in stool. Patient admits to having history of constipa tion. Having decreased appetite. Denies history of hepatitis. No history of alcohol use. Takes Tylenol about once a week at bedtime Past Medical History: Dm, HTN, CKD Past Surgical History: cholecystectomy Social History: NO smoking, drinking ETOH and use of illegal drugs. Family History: Noncontributory Review of Systems: Constitutional: no fever, chill, weight loss HEENT: no eye pain, no hearing loss, no oral lesion, no scleral icterus Heart: no chest pain, no chest pressure Lung: no cough, no dyspnea with exertion Abdomen: see HPI Physical exam: General: NAD, AAOX3 Chest: lung fernandez clear to auscultation Heart: RRR, no murmur Abdomen: non-distended, no tenderness to palpation, +BS Labs: Labs Test 05/25/25 05:17 Range/Units White Blood Count 14.5 H 4.4-10.8 10^3/uL Red Blood Count 3.75 L 4.0-5.20 10^6/uL Hemoglobin 11.2 L 12.2-16.2 g/dL Hematocrit 32.9 L 36.0-46.0 % Mean Corpuscular Volume 87.9 80.0-100.0 fL Mean Corpuscular Hemoglobin 29.8 28.0-32.0 pg Mean Corpuscular Hemoglobin Concent 33.9 32.0-36.0 g/dL Red Cell Distribution Width 13.6 11.8-14.3 % Platelet Count 273 140-450 10^3/uL Mean Platelet Volume 7.9 6.9-10.8 fL Neutrophils (%) (Auto) 84.8 H 37.0-80.0 % Lymphocytes (%) (Auto) 6.2 L 10.0-50.0 % Monocytes (%) (Auto) 8.7 0.0-12.0 % Eosinophils (%) (Auto) 0.1 0.0-7.0 % Basophils (%) (Auto) 0.2 0.0-2.0 % Neutrophils # (Auto) 12.3 H 1.6-8.6 10 ^3/uL Lymphocytes # (Auto) 0.9 0.4-5.4 10 ^3/uL Monocytes # (Auto) 1.3 0-1.3 10 ^3/uL Eosinophils # (Auto) 0 0-0.8 10 ^3/uL Basophils # (Auto) 0 0-0.2 10 ^3/uL Nucleated Red Blood Cells 0.0 % Sodium Level 128 L 136-145 mmol/L Potassium Level 3.9 3.5-5.1 mmol/L Chloride Level 96 L 98-107 mmol/L Carbon Dioxide Level 24 20-31 mmol/L Anion Gap 8 5-15 Blood Urea Nitrogen 50 H 9-23 mg/dL Creatinine 2.03 H 0.550-1.02 mg/dL Glomerular Filtration Rate Calc 23 >90 mL/min BUN/Creatinine Ratio 24.6 H 10.0-20.0 Serum Glucose 275 H 74-106 mg/dL Serum Osmolality 290 278-298 mOsm/kg Calcium Level 8.4 L 8.7-10.4 mg/dL Phosphorus Level 2.2 L 2.4-5.1 mg/dL Total Bilirubin 0.5 0.2-1.0 mg/dL Aspartate Amino Transferase (AST) 49 H 13-40 U/L Alanine Aminotransferase (ALT) 52 H 7-40 U/L Alkaline Phosphatase 295 H 46-116 U/L Total Protein 5.9 5.7-8.2 g/dL Albumin 3.4 3.2-4.8 g/dL Parathyroid Hormone (Intact) 63.1 18.4-80.1 pg/mL Microbiology Date/Time Source Procedure Growth Status 05/24/25 16:00 Voided Urine Urine Culture - Preliminary Resulted Imaging: HIDA IMPRESSION: 1. No evidence of bile leak. 2. If further confirmation is needed, a contrast-enhanced MRCP may prove useful for further evaluation. CT abdomen pelvis IMPRESSION: 1. Postsurgical changes of prior cholecystectomy with surgical drain in place extending to the gallbladder fossa. Fluid density structure near the gallbladder fossa and extending medial to the surgical drain, portions of which may be due to the common bile duct, which is poorly delineated in this location. Possible superimposed fluid collection. 2. Nonspecific nondilated fluid-filled small bowel loops. Findings may be seen with ileus or enteritis in the appropriate clinical setting. No small bowel obstruction. 3. Moderate stool in the colon. Assessment: Elevated LFT Status post laparoscopic cholecystectomy 04/21/2025 Plan: Discussed with Dr. Weir Continue antibiotics Recheck labs in morning Conservative management recommended at this time We will continue to follow patient Thank you for this consult Date of Service: May 25, 2025 Billing Provider: SEE MCLEOD Common Visit Codes: CONSULT ONLY Consultation Codes: [id number] CONSULT <45MIN SEE MCLEOD May 25, 2025 13:59
[2025-05-25] MEDS: DOCUSATE SOD 100 MG CAP PO ONE (15:04)
[2025-05-25] MEDS: SODIUM CHLORIDE 0.9% 1,000 ML IV SCH (15:05)
--- NOTE | 2025-05-25 16:14 | DVH ---
CHEST RADIOGRAPH Indication: congestion Technique: Single frontal view of the chest was obtained Comparison: XY CHEST XRAY 1 VIEW on DOS: 04/17/25, XY CHEST PORTABLE on DOS: 02/18/24 FINDINGS: Lines and Tubes: Left chest pacer. Lungs: Mild pulmonary vascular congestion. No focal consolidation. Pleura: No effusion. No pneumothorax. Cardiomediastinal contours: Within normal limits. Calcified aortic arch. IMPRESSION: 1. Mild pulmonary vascular congestion. No focal consolidations.
[2025-05-25 17:00] VITALS: BP 131/60; PULSE 64; RESP 18; TEMP 97.8; O2SAT 98
[2025-05-25] MEDS: NEUTRA-PHOS TABLET PO SCH (17:47)
[2025-05-25] MEDS: InsuLIN REG 1unit/0.01ml Soln (100units/ml) SC SCH (17:48)
[2025-05-25] MEDS: ACCU-CHEK COMFORT CURVE STRIP VI SCH (17:49)
[2025-05-25 21:00] VITALS: BP 140/56; PULSE 63; RESP 16; TEMP 97.7; O2SAT 96
[2025-05-26 01:00] VITALS: BP 104/63; PULSE 74; RESP 18; TEMP 97.9; O2SAT 98
[2025-05-26 05:00] VITALS: BP 138/62; PULSE 74; RESP 19; TEMP 99.1; O2SAT 98
[2025-05-26 06:46] LABS: Urine Budding Yeast LOADED /hpf (None Seen); Urine Protein, UAD TRACE (Negative); Urine WBC Clumps PRESENT /hpf (None Seen)
[2025-05-26 06:54] LABS: Protein, Urine 47.0 mg/dL (1-14)
[2025-05-26 07:48] LABS: Hematocrit 34.2 % (36.0-46.0); Hemoglobin 11.6 g/dL (12.2-16.2); Mean Corpuscular Hemoglobin 29.8 pg (28.0-32.0); Mean Corpuscular Volume 87.3 fL (80.0-100.0); Nucleated Red Blood Cells % 0.0 %
[2025-05-26 07:50] LABS: Albumin 3.2 g/dL (3.2-4.8); Anion Gap 12 (5-15); BUN/Creatinine Ratio 22.2 (10.0-20.0); Calcium 8.8 mg/dL (8.7-10.4); Carbon Dioxide 22 mmol/L (20-31); Total Protein 5.8 g/dL (5.7-8.2)
[2025-05-26 07:53] LABS: Alkaline Phosphatase 510 U/L (46-116); Blood Urea Nitrogen 40 mg/dL (9-23); Chloride 98 mmol/L (98-107); Glucose 178 mg/dL (74-106); Potassium 3.0 mmol/L (3.5-5.1); Sodium 132 mmol/L (136-145)
[2025-05-26 07:54] LABS: Alanine Aminotransferase 139 U/L (7-40); Bilirubin, Total 1.2 mg/dL (0.2-1.0)
--- NOTE | 2025-05-26 08:15 | DVHPN2 ---
Progress Note Date Seen: May 26, 2025 Medical Necessity Reason Pt with a Central, PICC or Fol: No Subjective Patient reports: No new complaints Review of Systems: Deferred Objective vital signs Vital Sign Date Time Temp Pulse Resp B/P (MAP) Pulse Ox O2 Delivery O2 Flow Rate FiO2 05/26/25 05:00 99.1 74 19 138/62 (87) 98 99.1 05/25/25 20:00 Room Air* 0 21 Total Intake and Output 05/25/25 05/25/25 05/26/25 15:00 23:00 07:00 Intake Total 1700 ml 600 ml Balance 1700 ml 600 ml medications Current Medications Medications Dose Ordered Sig/Red Route Start Time Stop Time Status Last Admin Dose Admin Nitroglycerin 0.4 mg Q5MINP PRN SL 05/23/25 13:30 Morphine Sulfate 2 mg Q30M PRN IV 05/23/25 13:30 Acetaminophen/ Codeine Phosphate 1 tab Q4HP PRN PO 05/23/25 13:30 Aspirin 81 mg DAILY PO 05/24/25 10:00 05/25/25 10:25 81 MG Carvedilol 25 mg BID PO 05/24/25 10:00 05/25/25 21:31 25 MG Metronidazole 100 ml @ 100 mls/hr Q8HR IV 05/24/25 14:00 05/26/25 06:00 100 MLS/HR Levofloxacin 50 ml @ 50 mls/hr Q48H IV 05/26/25 11:15 Diagnostic Test (Pha) 1 strip ACHS 05/25/25 17:00 05/26/25 06:13 1 STRIP Insulin Human Regular ACHS SC 05/25/25 17:00 05/26/25 06:12 4 UNITS Dextrose 50 ml UD PRN IV 05/25/25 12:00 Sodium Chloride 1,000 ml @ 75 mls/hr [id number] IV 05/25/25 14:15 05/26/25 02:58 75 MLS/HR Amlodipine Besylate 5 mg DAILY PO 05/26/25 10:00 Sodium Phosphate 1 tab TIDWM PO 05/25/25 18:00 05/28/25 00:00 05/25/25 17:47 1 TAB Examination: GENERAL:Normal, HEENT:Normal, NECK:Normal, LUNGS:Normal, CVS:Normal, ABDOMEN:Abnormal, MSK:Normal, SKIN:Normal, NEURO:Normal, :Normal laboratory and microbiology Laboratory Tests 05/26/25 05:50 Test 05/26/25 05:50 Range/Units Serum Glucose 178 H 74-106 mg/dL Microbiology Date/Time Source Procedure Growth Status 05/24/25 16:00 Voided Urine Urine Culture - Preliminary Resulted 05/24/25 11:40 Blood Blood Culture - Preliminary NO GROWTH AFTER 24 HOURS OF INCUBATION. Resulted Problem List/Assessment/Plan Problem List/Assessment/Plan Acute kidney injury likely prerenal superimposed on CKD Mild hyponatremia- Diabetes mellitus type 2-A1c 7.0 severe sepsis /pus from LYNNETTE drain s/p removal Hypokalemia Hypertension Anemia likely chronic kidney disease Status post laparoscopic cholecystectomy 04/21/25 drain removed this admission recs NS iv continue k replace lfts worsening-gi following abx Plan discussed with: Patient, Daughter My Orders My Orders Orders - JANUSZ DE LEON MD Procedure Category Date Status Time Potassium Effervesent PHA 05/26/25 Transmitted Tab (Klor-Con/Ef) 08:15 Dietary Evaluation Review Comments: High risk malnutrition [facility] diet with 65g protein restriction Monitor PO intake to meet 75% of her needs Expected Outcomes/Goals: improved nutriton related lab values controlled DM less uremic symptoms JANUSZ DE LEON MD May 26, 2025 08:15
[2025-05-26 08:56] VITALS: BP 144/66; PULSE 76; RESP 16; TEMP 98.2; O2SAT 95
[2025-05-26] MEDS: POTASSIUM EFFERVESENT TAB 25 MEQ PO ONE (09:13)
[2025-05-26] MEDS ORDERED: hydroCHLOROthiazide 25 MG TAB PO SCH (10:00)
--- NOTE | 2025-05-26 12:10 | DVHPN2 ---
Subjective Patient denies any symptoms Reviewed: Care Plan, H&P, Labs, Medications Changes from previous H/P or p: No Changes General: Per HPI Objective Vitals Vital Signs Date Time Temp Pulse Resp B/P (MAP) Pulse Ox O2 Delivery O2 Flow Rate FiO2 05/26/25 08:56 98.2 76 16 144/66 (92) 95 98.2 05/26/25 07:35 Room Air* 0 21 Intake/Output Intake and Output 05/26/25 07:00 Intake Total 2300 ml Balance 2300 ml Intake Oral 2100 ml IV Total 200 ml # Voids 2 # Bowel Movements 4 General Appearance: Alert, Oriented X3, Cooperative, No acute distress HEENT: Atraumatic, PERRLA Lungs: Clear to auscultation, Normal air movement Cardiovascular: Normal S1, Normal S2 Abdomen: Normal bowel sounds, Other (Tenderness with palpation to right upper quadrant) Genitourinary: No Apparent Abnormalities Neuro: Normal gait, Normal speech Skin: Dry, Intact Psych/Mental Status: Mental status NL, Mood NL Medications Current Medications Medications Dose Ordered Sig/Red Route Start Time Stop Time Status Last Admin Dose Admin Nitroglycerin 0.4 mg Q5MINP PRN SL 05/23/25 13:30 Morphine Sulfate 2 mg Q30M PRN IV 05/23/25 13:30 Acetaminophen/ Codeine Phosphate 1 tab Q4HP PRN PO 05/23/25 13:30 Aspirin 81 mg DAILY PO 05/24/25 10:00 05/26/25 08:54 81 MG Carvedilol 25 mg BID PO 05/24/25 10:00 05/26/25 08:54 25 MG Metronidazole 100 ml @ 100 mls/hr Q8HR IV 05/24/25 14:00 05/26/25 06:00 100 MLS/HR Levofloxacin 50 ml @ 50 mls/hr Q48H IV 05/26/25 11:15 05/26/25 10:11 50 MLS/HR Diagnostic Test (Pha) 1 strip ACHS 05/25/25 17:00 05/26/25 06:13 1 STRIP Dextrose 50 ml UD PRN IV 05/25/25 12:00 Sodium Chloride 1,000 ml @ 75 mls/hr [id number] IV 05/25/25 14:15 05/26/25 02:58 75 MLS/HR Amlodipine Besylate 5 mg DAILY PO 05/26/25 10:00 05/26/25 08:56 5 MG Sodium Phosphate 1 tab TIDWM PO 05/25/25 18:00 05/28/25 00:00 05/26/25 08:53 1 TAB Fluconazole 100 ml @ 100 mls/hr DAILY IV 05/27/25 10:00 UNV Diagnostic Test (Pha) 1 strip ACHS 05/26/25 17:00 UNV Insulin Human Regular HS SC 05/26/25 22:00 UNV Insulin Human Regular AC SC 05/26/25 17:00 UNV Dextrose 50 ml UD PRN IV 05/26/25 12:15 UNV Laboratory Results Laboratory Tests 05/26/25 05:50 Chemistry Test 05/26/25 05:50 Albumin 3.2 g/dL (3.2-4.8) Calcium Level 8.8 mg/dL (8.7-10.4) Total Protein 5.8 g/dL (5.7-8.2) LFT Test 05/26/25 05:50 Alanine Aminotransferase (ALT) 139 U/L (7-40) H Alkaline Phosphatase 510 U/L (46-116) H Aspartate Amino Transferase (AST) 309 U/L (13-40) H Total Bilirubin 1.2 mg/dL (0.2-1.0) H Urinalysis Test 05/26/25 05:50 Urine Color Light-orange (Yellow) Urine Clarity Ex.turbid (Clear) Urine pH 5.5 (5.0-9.0) Urine Specific Nunnelly 1.012 (1.001-1.035) Urine Protein Trace (Negative) H Urine Ketones Negative (Negative) Urine Blood Trace /uL (Negative) H Urine Nitrite Negative (Negative) Urine Bilirubin Negative (Negative) Urine Urobilinogen Normal mg/dL (Negative) Urine Leukocyte Esterase 3+ /uL (Negative) Urine RBC 68 /hpf (0 - 4) Urine WBC Clumps Present /hpf (None Seen) Urine Microscopic WBC 809 /HPF (0-5) H Urine Squamous Epithelial Cells Few /hpf (<5) Urine Bacteria None seen /hpf (None Seen) Urine Yeast (Budding) Loaded /hpf (None Seen) Urine Creatinine 46.32 mg/dL (30.0-125.0) Urine Protein/Creatinine Ratio 1.01 Urine Sodium 29 mmol/L (40-220) L Urine Glucose 4+ mg/dL (Normal) H Urine Total Protein 47.0 mg/dL (1-14) H Microbiology Microbiology Date/Time Source Procedure Growth Status 05/24/25 16:00 Voided Urine Urine Culture - Preliminary Resulted 05/24/25 11:40 Blood Blood Culture - Preliminary NO GROWTH AFTER 48 HOURS OF INCUBATION. Resulted Labs and/or images reviewed: Labs reviewed by me, Image(s) reviewed by me Assessment/Plan Assessment/Plan Impression: -status post cholecystectomy -accelerated hypertension -sepsis -acute kidney injury, vasomotor nephropathy -underlying CKD stage IIIB -diabetes mellitus type 2 Plan: Events: White blood cell count slightly decreased. LFTs increase. Bilirubin 1.2. Renal function improving. -GI consultation: Recommendations reviewed -continue Levaquin and Flagyl -nephrology consultation -liver ultrasound -K-Phos supplementation with meals -IV hydration -repeat labs in a.m. Total time spent with patient discussing and formulating plan of care: 35 minutes. This medical document was created using an electronic medical record system with [email or web address] dictation system. Although this document has been carefully reviewed, there may still be some phonetic and typographical errors. These areas are purely typographical due to imperfections of the software programs, and do not reflect any compromise in the patient's medical care. Plan discussed with: Patient, Other (rn) My Orders Orders - GEORGIA MARCANO NP Procedure Category Date Status Time LIVER US 05/26/25 Logged 11:56 Fluconazole PHA 05/27/25 Logged 200mg/100ml (Diflucan 10:00 Consistent DIET 05/26/25 Transmitted Carb(Ccho)Diabetes Lunch Glucose Blood PHA 05/26/25 Logged (Accu-Chek Comfort 17:00 Insulin R (Human) PHA 05/26/25 Logged (Insulin R) 22:00 Insulin R (Human) PHA 05/26/25 Logged (Insulin R) 17:00 Dextrose 50% Syringe PHA 05/26/25 Logged 12:15 Date of Service: May 26, 2025 Billing Provider: GEORGIA MARCANO NP Common Visit Codes: [id number] INP/OBS CARE(HIGH) GEORGIA MARCANO NP May 26, 2025 12:10
[2025-05-26] MEDS ORDERED: DEXTROSE (50%) 50ML SYRG IV PRN (12:15)
[2025-05-26] MEDS: InsuLIN REG 1unit/0.01ml Soln (100units/ml) SC SCH ×3 (12:35→21:40)
[2025-05-26 12:44] VITALS: BP 139/67; PULSE 72; RESP 16; TEMP 98.8; O2SAT 97
--- NOTE | 2025-05-26 13:07 | DVH ---
EXAM DESCRIPTION: US LIVER CLINICAL HISTORY: increased LFTs COMPARISON: CT abdomen pelvis 05/24/25. Ultrasound abdomen 04/16/25 TECHNIQUE: Using real-time ultrasonography multiple images of the abdomen were obtained. FINDINGS: The liver measures 14.2 cm. No focal liver masses. The liver demonstrates slightly heterogeneous echotexture The partially imaged pancreas is unremarkable. Status post cholycystectomy. 1.5 x 1.1 x 1.8 cm in a collection in the gallbladder fossa. The common bile duct measures 11 mm in diameter, similar to prior. There is no free intraperitoneal fluid. The right kidney measures 9.1 cm. No right renal calculi or hydronephrosis. IMPRESSION: 1. The liver demonstrates slightly heterogeneous echotexture, which may suggest chronic liver disease . 2. Small fluid collection in the gallbladder fossa measuring 1.5 x 1.1 x 1.8 cm. 3. [id number] dilation of the common bile duct, not significantly changed from 04/16/25
[2025-05-26 16:33] VITALS: BP 132/60; PULSE 73; RESP 16; TEMP 97.9; O2SAT 97
[2025-05-26] MEDS: ACCU-CHEK COMFORT CURVE STRIP VI SCH (17:21)
[2025-05-26 21:00] VITALS: BP 141/50; PULSE 72; RESP 16; TEMP 98.4; O2SAT 96
[2025-05-27] VITALS (8 sets, daily range): BP systolic 101–145; BP diastolic 35–66; PULSE 66–75; RESP 15–17; TEMP 97.8–98.7; O2SAT 95–98
--- NOTE | 2025-05-27 00:02 | DVHPN2 ---
Progress Note - Dictate Date Seen: May 27, 2025 Medical Necessity Reason Pt with a Central, PICC or Fol: No Subjective No new complaints Patient resting comfortably Noted further worsening and moderate elevation in liver enzymes Patient stated she had a pacemaker vital signs Vital Sign Date Time Temp Pulse Resp B/P (MAP) Pulse Ox O2 Delivery O2 Flow Rate FiO2 05/26/25 22:29 70 125/44 05/26/25 21:00 98.4 16 96 98.4 05/26/25 20:00 Room Air* 0 21 Total Intake and Output 05/26/25 05/26/25 05/27/25 15:00 23:00 07:00 Intake Total 150 ml 1775 ml Balance 150 ml 1775 ml medications Current Medications Medications Dose Ordered Sig/Red Route Start Time Stop Time Status Last Admin Dose Admin Nitroglycerin 0.4 mg Q5MINP PRN SL 05/23/25 13:30 Morphine Sulfate 2 mg Q30M PRN IV 05/23/25 13:30 Acetaminophen/ Codeine Phosphate 1 tab Q4HP PRN PO 05/23/25 13:30 Aspirin 81 mg DAILY PO 05/24/25 10:00 05/26/25 08:54 81 MG Carvedilol 25 mg BID PO 05/24/25 10:00 05/26/25 21:29 25 MG Metronidazole 100 ml @ 100 mls/hr Q8HR IV 05/24/25 14:00 05/26/25 21:28 100 MLS/HR Levofloxacin 50 ml @ 50 mls/hr Q48H IV 05/26/25 11:15 05/26/25 10:11 50 MLS/HR Sodium Chloride 1,000 ml @ 75 mls/hr [id number] IV 05/25/25 14:15 05/26/25 15:48 75 MLS/HR Amlodipine Besylate 5 mg DAILY PO 05/26/25 10:00 05/26/25 08:56 5 MG Sodium Phosphate 1 tab TIDWM PO 05/25/25 18:00 05/28/25 00:00 05/26/25 17:31 1 TAB Fluconazole 100 ml @ 100 mls/hr DAILY IV 05/27/25 10:00 Diagnostic Test (Pha) 1 strip ACHS 05/26/25 17:00 05/26/25 21:40 1 STRIP Insulin Human Regular HS SC 05/26/25 22:00 05/26/25 21:40 2 UNITS Insulin Human Regular AC SC 05/26/25 17:00 05/26/25 17:29 3 UNITS Dextrose 50 ml UD PRN IV 05/26/25 12:15 objective General: NAD, AAOX3 Chest: lung fernandez clear to auscultation Heart: RRR, no murmur Abdomen: non-distended, no tenderness to palpation, +BS laboratory and microbiology Laboratory Tests 05/26/25 05:50 Test 05/26/25 05:50 Range/Units Serum Glucose 178 H 74-106 mg/dL Problems(with codes): (1) Elevated liver function tests (2) Intractable abdominal pain (3) Cholelithiasis Prognosis Plan IV antibiotics Monitor labs Arrange MRI MRCP when radiology is going to be able to do it with special magnet on the pacemaker I will follow up patient with you, check hepatitis profile and SIDDHARTH Dietary Evaluation Review Comments: High risk malnutrition Update diet to CCHO-60 renal diet with 65g protein restriction Monitor PO intake to meet 75% of her needs Expected Outcomes/Goals: improved nutriton related lab values controlled DM less uremic symptoms Plan discussed with: Patient SAUNDRA GASPAR MD May 27, 2025 00:02
[2025-05-27 00:59] LABS: INR 1.41 (0.9-1.15); Prothrombin Time 14.4 sec (9.3-11.8)
--- NOTE | 2025-05-27 08:24 | DVHPN2 ---
Progress Note Date Seen: May 27, 2025 Medical Necessity Reason Pt with a Central, PICC or Fol: No Subjective Patient reports: No new complaints Review of Systems: Deferred Objective vital signs Vital Sign Date Time Temp Pulse Resp B/P (MAP) Pulse Ox O2 Delivery O2 Flow Rate FiO2 05/27/25 05:00 98.3 69 16 133/60 (84) 97 98.3 05/26/25 20:00 Room Air* 0 21 Total Intake and Output 05/26/25 05/26/25 05/27/25 15:00 23:00 07:00 Intake Total 150 ml 1775 ml 1040 ml Balance 150 ml 1775 ml 1040 ml medications Current Medications Medications Dose Ordered Sig/Red Route Start Time Stop Time Status Last Admin Dose Admin Nitroglycerin 0.4 mg Q5MINP PRN SL 05/23/25 13:30 Morphine Sulfate 2 mg Q30M PRN IV 05/23/25 13:30 Acetaminophen/ Codeine Phosphate 1 tab Q4HP PRN PO 05/23/25 13:30 Aspirin 81 mg DAILY PO 05/24/25 10:00 05/26/25 08:54 81 MG Carvedilol 25 mg BID PO 05/24/25 10:00 05/26/25 21:29 25 MG Metronidazole 100 ml @ 100 mls/hr Q8HR IV 05/24/25 14:00 05/27/25 05:35 100 MLS/HR Levofloxacin 50 ml @ 50 mls/hr Q48H IV 05/26/25 11:15 05/26/25 10:11 50 MLS/HR Sodium Chloride 1,000 ml @ 75 mls/hr [id number] IV 05/25/25 14:15 05/27/25 06:10 75 MLS/HR Amlodipine Besylate 5 mg DAILY PO 05/26/25 10:00 05/26/25 08:56 5 MG Sodium Phosphate 1 tab TIDWM PO 05/25/25 18:00 05/28/25 00:00 05/27/25 08:04 1 TAB Fluconazole 100 ml @ 100 mls/hr DAILY IV 05/27/25 10:00 Diagnostic Test (Pha) 1 strip ACHS 05/26/25 17:00 05/27/25 06:10 1 STRIP Insulin Human Regular HS SC 05/26/25 22:00 05/26/25 21:40 2 UNITS Insulin Human Regular AC SC 05/26/25 17:00 05/27/25 06:09 2 UNITS Dextrose 50 ml UD PRN IV 05/26/25 12:15 Examination: GENERAL:Normal, HEENT:Normal, NECK:Normal, LUNGS:Normal, CVS:Normal, ABDOMEN:Abnormal, MSK:Normal, SKIN:Normal, NEURO:Normal, :Normal laboratory and microbiology Laboratory Tests 05/26/25 05:50 Test 05/26/25 05:50 Range/Units Serum Glucose 178 H 74-106 mg/dL Microbiology Date/Time Source Procedure Growth Status 05/24/25 16:00 Voided Urine Urine Culture - Preliminary Resulted 05/24/25 11:40 Blood Blood Culture - Preliminary NO GROWTH AFTER 48 HOURS OF INCUBATION. Resulted Problem List/Assessment/Plan Problem List/Assessment/Plan Acute kidney injury likely prerenal superimposed on CKD Mild hyponatremia- Diabetes mellitus type 2-A1c 7.0 severe sepsis /pus from LYNNETTE drain s/p removal Hypokalemia Hypertension Anemia likely chronic kidney disease Status post laparoscopic cholecystectomy 04/21/25 drain removed this admission recs NS iv continue k replace lfts worsening-gi following abx No new labs available today ordered-pending Plan discussed with: Patient My Orders My Orders Orders - JANUSZ DE LEON MD Procedure Category Date Status Time Comprehensive LAB 05/27/25 Transmitted Metabolic Panel 08:22 Dietary Evaluation Review Comments: High risk malnutrition Update diet to [facility]-60 renal diet with 65g protein restriction Monitor PO intake to meet 75% of her needs Expected Outcomes/Goals: improved nutriton related lab values controlled DM less uremic symptoms JANUSZ DE LEON MD May 27, 2025 08:24
[2025-05-27] MEDS: FLUCONAZOLE 200MG/100ML 100 ML IV SCH (09:37)
--- NOTE | 2025-05-27 09:56 | DVHPN2 ---
Progress Note Date Seen: May 27, 2025 Medical Necessity Reason Pt with a Central, PICC or Fol: No Objective vital signs Vital Sign Date Time Temp Pulse Resp B/P (MAP) Pulse Ox O2 Delivery O2 Flow Rate FiO2 05/27/25 09:36 109/40 05/27/25 09:36 66 05/27/25 08:15 15 97 Room Air* 0 21 05/27/25 05:00 98.3 98.3 Total Intake and Output 05/26/25 05/26/25 05/27/25 15:00 23:00 07:00 Intake Total 150 ml 1775 ml 1040 ml Balance 150 ml 1775 ml 1040 ml medications Current Medications Medications Dose Ordered Sig/Red Route Start Time Stop Time Status Last Admin Dose Admin Nitroglycerin 0.4 mg Q5MINP PRN SL 05/23/25 13:30 Morphine Sulfate 2 mg Q30M PRN IV 05/23/25 13:30 Acetaminophen/ Codeine Phosphate 1 tab Q4HP PRN PO 05/23/25 13:30 Aspirin 81 mg DAILY PO 05/24/25 10:00 05/27/25 09:37 81 MG Carvedilol 25 mg BID PO 05/24/25 10:00 05/26/25 21:29 25 MG Metronidazole 100 ml @ 100 mls/hr Q8HR IV 05/24/25 14:00 05/27/25 05:35 100 MLS/HR Levofloxacin 50 ml @ 50 mls/hr Q48H IV 05/26/25 11:15 05/26/25 10:11 50 MLS/HR Sodium Chloride 1,000 ml @ 75 mls/hr [id number] IV 05/25/25 14:15 05/27/25 06:10 75 MLS/HR Amlodipine Besylate 5 mg DAILY PO 05/26/25 10:00 05/26/25 08:56 5 MG Sodium Phosphate 1 tab TIDWM PO 05/25/25 18:00 05/28/25 00:00 05/27/25 08:04 1 TAB Fluconazole 100 ml @ 100 mls/hr DAILY IV 05/27/25 10:00 05/27/25 09:37 100 MLS/HR Diagnostic Test (Pha) 1 strip ACHS 05/26/25 17:00 05/27/25 06:10 1 STRIP Insulin Human Regular HS SC 05/26/25 22:00 05/26/25 21:40 2 UNITS Insulin Human Regular AC SC 05/26/25 17:00 05/27/25 06:09 2 UNITS Dextrose 50 ml UD PRN IV 05/26/25 12:15 laboratory and microbiology Laboratory Tests 05/26/25 05:50 Test 05/27/25 09:04 Range/Units Serum Glucose Pending Problem List/Assessment/Plan Problem List/Assessment/Plan 05/24/25 hida scan reviewed, drain with minimal non bilious drainage, drain removed without difficulty. will request nephrology consult due to abnormal renal function tests. 05/27/25 FEELS VERY WELL, HAS BEEN AMBULATING, NORMAL BOWEL AND BLADER FUNCTION, TOLERATING PO WITHOUT NAUSEA OR VOMITING, KIDNEY FUNCTION SEEMS TO BE IMPROVING WITH HYDRATION, LIVER FUNCTION NUMBERS CONTINUE TO WORSEN, SUSPECT LIVER TOXICITY OF LIPIRTOR COMBINED WITH INFECTION BUT NEED TO R/O CHOLEDOCHOLITHIASIS S/P LAPAROSCOPIC CHOLECYSTECTOMY. CONTINUE TO MONITOR CLOSELY. Plan discussed with: Patient, Spouse Dietary Evaluation Review Comments: High risk malnutrition Update diet to CCHO-60 renal diet with 65g protein restriction Monitor PO intake to meet 75% of her needs Expected Outcomes/Goals: improved nutriton related lab values controlled DM less uremic symptoms CHANNING HERNANDEZ MD May 27, 2025 09:56
[2025-05-27 09:57] LABS: Albumin 3.3 g/dL (3.2-4.8); Anion Gap 11 (5-15); BUN/Creatinine Ratio 18.9 (10.0-20.0); Calcium 8.9 mg/dL (8.7-10.4); Carbon Dioxide 24 mmol/L (20-31); Chloride 99 mmol/L (98-107); Potassium 3.6 mmol/L (3.5-5.1); Total Protein 6.0 g/dL (5.7-8.2)
[2025-05-27 09:58] LABS: Bilirubin, Total 1.1 mg/dL (0.2-1.0)
[2025-05-27 10:03] LABS: Glucose 167 mg/dL (74-106); Sodium 134 mmol/L (136-145)
[2025-05-27 10:04] LABS: Alanine Aminotransferase 129 U/L (7-40); Alkaline Phosphatase 484 U/L (46-116); Blood Urea Nitrogen 33 mg/dL (9-23)
--- NOTE | 2025-05-27 10:07 | DVHPN2 ---
Progress Note Date Seen: May 27, 2025 Medical Necessity Reason Pt with a Central, PICC or Fol: No Objective vital signs Vital Sign Date Time Temp Pulse Resp B/P (MAP) Pulse Ox O2 Delivery O2 Flow Rate FiO2 05/27/25 09:36 109/40 05/27/25 09:36 66 05/27/25 08:15 15 97 Room Air* 0 21 05/27/25 05:00 98.3 98.3 Total Intake and Output 05/26/25 05/26/25 05/27/25 15:00 23:00 07:00 Intake Total 150 ml 1775 ml 1040 ml Balance 150 ml 1775 ml 1040 ml medications Current Medications Medications Dose Ordered Sig/Red Route Start Time Stop Time Status Last Admin Dose Admin Nitroglycerin 0.4 mg Q5MINP PRN SL 05/23/25 13:30 Morphine Sulfate 2 mg Q30M PRN IV 05/23/25 13:30 Acetaminophen/ Codeine Phosphate 1 tab Q4HP PRN PO 05/23/25 13:30 Aspirin 81 mg DAILY PO 05/24/25 10:00 05/27/25 09:37 81 MG Carvedilol 25 mg BID PO 05/24/25 10:00 05/26/25 21:29 25 MG Metronidazole 100 ml @ 100 mls/hr Q8HR IV 05/24/25 14:00 05/27/25 05:35 100 MLS/HR Levofloxacin 50 ml @ 50 mls/hr Q48H IV 05/26/25 11:15 05/26/25 10:11 50 MLS/HR Sodium Chloride 1,000 ml @ 75 mls/hr [id number] IV 05/25/25 14:15 05/27/25 06:10 75 MLS/HR Amlodipine Besylate 5 mg DAILY PO 05/26/25 10:00 05/26/25 08:56 5 MG Sodium Phosphate 1 tab TIDWM PO 05/25/25 18:00 05/28/25 00:00 05/27/25 08:04 1 TAB Fluconazole 100 ml @ 100 mls/hr DAILY IV 05/27/25 10:00 05/27/25 09:37 100 MLS/HR Diagnostic Test (Pha) 1 strip ACHS 05/26/25 17:00 05/27/25 06:10 1 STRIP Insulin Human Regular HS SC 05/26/25 22:00 05/26/25 21:40 2 UNITS Insulin Human Regular AC SC 05/26/25 17:00 05/27/25 06:09 2 UNITS Dextrose 50 ml UD PRN IV 05/26/25 12:15 laboratory and microbiology Laboratory Tests 05/26/25 05:50 Test 05/27/25 09:04 Range/Units Serum Glucose Pending Problem List/Assessment/Plan Problem List/Assessment/Plan 05/24/25 hida scan reviewed, drain with minimal non bilious drainage, drain removed without difficulty. will request nephrology consult due to abnormal renal function tests. 05/27/25 FEELS VERY WELL, HAS BEEN AMBULATING, NORMAL BOWEL AND BLADER FUNCTION, TOLERATING PO WITHOUT NAUSEA OR VOMITING, KIDNEY FUNCTION SEEMS TO BE IMPROVING WITH HYDRATION, LIVER FUNCTION NUMBERS CONTINUE TO WORSEN, SUSPECT LIVER TOXICITY OF LIPIRTOR COMBINED WITH INFECTION BUT NEED TO R/O CHOLEDOCHOLITHIASIS S/P LAPAROSCOPIC CHOLECYSTECTOMY. CONTINUE TO MONITOR CLOSELY. 05/27/25 FEELS WELL, HER LIVER FUNCTION IS WORSENING AND SHE IS ON LEVOFLOXACIN,CARVEDILOL,AND FLUCONAZOLE ALL OF WHICH ARE HEPATOTOXIC, RECOMMEND CHANGING HER MEDICATIONS Plan discussed with: Patient, Spouse Dietary Evaluation Review Comments: High risk malnutrition Update diet to CCHO-60 renal diet with 65g protein restriction Monitor PO intake to meet 75% of her needs Expected Outcomes/Goals: improved nutriton related lab values controlled DM less uremic symptoms CHANNING HERNANDEZ MD May 27, 2025 10:07
--- NOTE | 2025-05-27 12:46 | DVHPN2 ---
Subjective Patient denies any symptoms Reviewed: Care Plan, H&P, Labs, Medications Changes from previous H/P or p: No Changes General: Per HPI Objective Vitals Vital Signs Date Time Temp Pulse Resp B/P (MAP) Pulse Ox O2 Delivery O2 Flow Rate FiO2 05/27/25 09:36 109/40 05/27/25 09:36 66 05/27/25 09:00 98.4 15 97 98.4 05/27/25 08:15 Room Air* 0 21 Intake/Output Intake and Output 05/27/25 07:00 Intake Total 2965 ml Balance 2965 ml Intake Oral 2040 ml IV Total 925 ml # Voids 4 # Bowel Movements 1 General Appearance: Alert, Oriented X3, Cooperative, No acute distress HEENT: Atraumatic, PERRLA Lungs: Clear to auscultation, Normal air movement Cardiovascular: Normal S1, Normal S2 Abdomen: Normal bowel sounds, Other (Tenderness with palpation to right upper quadrant) Genitourinary: No Apparent Abnormalities Neuro: Normal gait, Normal speech Skin: Dry, Intact Psych/Mental Status: Mental status NL, Mood NL Medications Current Medications Medications Dose Ordered Sig/Red Route Start Time Stop Time Status Last Admin Dose Admin Nitroglycerin 0.4 mg Q5MINP PRN SL 05/23/25 13:30 Morphine Sulfate 2 mg Q30M PRN IV 05/23/25 13:30 Acetaminophen/ Codeine Phosphate 1 tab Q4HP PRN PO 05/23/25 13:30 Aspirin 81 mg DAILY PO 05/24/25 10:00 05/27/25 09:37 81 MG Carvedilol 25 mg BID PO 05/24/25 10:00 05/26/25 21:29 25 MG Metronidazole 100 ml @ 100 mls/hr Q8HR IV 05/24/25 14:00 05/27/25 05:35 100 MLS/HR Levofloxacin 50 ml @ 50 mls/hr Q48H IV 05/26/25 11:15 05/26/25 10:11 50 MLS/HR Sodium Chloride 1,000 ml @ 75 mls/hr [id number] IV 05/25/25 14:15 05/27/25 06:10 75 MLS/HR Amlodipine Besylate 5 mg DAILY PO 05/26/25 10:00 05/26/25 08:56 5 MG Sodium Phosphate 1 tab TIDWM PO 05/25/25 18:00 05/28/25 00:00 05/27/25 12:11 1 TAB Fluconazole 100 ml @ 100 mls/hr DAILY IV 05/27/25 10:00 05/27/25 09:37 100 MLS/HR Diagnostic Test (Pha) 1 strip ACHS 05/26/25 17:00 05/27/25 11:47 1 STRIP Insulin Human Regular HS SC 05/26/25 22:00 05/26/25 21:40 2 UNITS Insulin Human Regular AC SC 05/26/25 17:00 05/27/25 11:56 3 UNITS Dextrose 50 ml UD PRN IV 05/26/25 12:15 Laboratory Results Laboratory Tests 05/26/25 05:50 05/27/25 09:04 Chemistry Test 05/27/25 09:04 Albumin 3.3 g/dL (3.2-4.8) Calcium Level 8.9 mg/dL (8.7-10.4) Total Protein 6.0 g/dL (5.7-8.2) Coagulation Test 05/27/25 00:30 Prothrombin Time 14.4 sec (9.3-11.8) H Prothrombin Time INR 1.41 (0.9-1.15) H LFT Test 05/27/25 09:04 Alanine Aminotransferase (ALT) 129 U/L (7-40) H Alkaline Phosphatase 484 U/L (46-116) H Aspartate Amino Transferase (AST) 211 U/L (13-40) H Total Bilirubin 1.1 mg/dL (0.2-1.0) H Urinalysis Test 05/26/25 05:50 Urine Color Light-orange (Yellow) Urine Clarity Ex.turbid (Clear) Urine pH 5.5 (5.0-9.0) Urine Specific [place] 1.012 (1.001-1.035) Urine Protein Trace (Negative) H Urine Ketones Negative (Negative) Urine Blood Trace /uL (Negative) H Urine Nitrite Negative (Negative) Urine Bilirubin Negative (Negative) Urine Urobilinogen Normal mg/dL (Negative) Urine Leukocyte Esterase 3+ /uL (Negative) Urine RBC 68 /hpf (0 - 4) Urine WBC Clumps Present /hpf (None Seen) Urine Microscopic WBC 809 /HPF (0-5) H Urine Squamous Epithelial Cells Few /hpf (<5) Urine Bacteria None seen /hpf (None Seen) Urine Yeast (Budding) Loaded /hpf (None Seen) Urine Creatinine 46.32 mg/dL (30.0-125.0) Urine Protein/Creatinine Ratio 1.01 Urine Sodium 29 mmol/L (40-220) L Urine Glucose 4+ mg/dL (Normal) H Urine Total Protein 47.0 mg/dL (1-14) H Microbiology Microbiology Date/Time Source Procedure Growth Status 05/24/25 16:00 Voided Urine Urine Culture - Preliminary Resulted 05/24/25 11:40 Blood Blood Culture - Preliminary NO GROWTH AFTER 72 HOURS OF INCUBATION. Resulted Labs and/or images reviewed: Labs reviewed by me, Image(s) reviewed by me Assessment/Plan Assessment/Plan Impression: -status post cholecystectomy -accelerated hypertension -sepsis -acute kidney injury, vasomotor nephropathy -underlying CKD stage IIIB -diabetes mellitus type 2 Plan: Events: LFTs decreasing. Noted fluid in gallbladder fossa on ultrasound. MRI not compatible for performing MRCP. Patient with greater than [id number] yeast in urine. Continue fluconazole. Significant increase in LFTs occurred before fluconazole was started. Lipitor was stopped. Patient was on carvedilol as home medication. -GI consultation: Recommendations reviewed -continue Levaquin and Flagyl -nephrology consultation -liver ultrasound -K-Phos supplementation with meals -IV hydration -repeat labs in a.m. Total time spent with patient discussing and formulating plan of care: 35 minutes. This medical document was created using an electronic medical record system with [employer] dictation system. Although this document has been carefully reviewed, there may still be some phonetic and typographical errors. These areas are purely typographical due to imperfections of the software programs, and do not reflect any compromise in the patient's medical care. Plan discussed with: Patient, Other (RN) My Orders Orders - GEORGIA MARCANO NP Procedure Category Date Status Time Complete Blood Count LAB 05/27/25 Logged 11:00 Date of Service: May 27, 2025 Billing Provider: GEORGIA MARCANO NP Common Visit Codes: [id number] INP/OBS CARE(HIGH) GEORGIA MARCANO NP May 27, 2025 12:46
[2025-05-27 13:34] LABS: Hematocrit 32.1 % (36.0-46.0); Hemoglobin 11.0 g/dL (12.2-16.2); Mean Corpuscular Hemoglobin 29.7 pg (28.0-32.0); Mean Corpuscular Volume 86.7 fL (80.0-100.0); Nucleated Red Blood Cells % 0.0 %
--- NOTE | 2025-05-27 16:31 | DVHPN2 ---
Progress Note - Dictate Date Seen: May 27, 2025 Medical Necessity Reason Pt with a Central, PICC or Fol: No Subjective No new complaints Patient resting comfortably Liver enzymes are trending down today Patient stated she had a pacemaker vital signs Vital Sign Date Time Temp Pulse Resp B/P (MAP) Pulse Ox O2 Delivery O2 Flow Rate FiO2 05/27/25 13:00 98.7 67 16 118/41 (66) 97 98.7 05/27/25 08:15 Room Air* 0 21 Total Intake and Output 05/26/25 05/26/25 05/27/25 15:00 23:00 07:00 Intake Total 150 ml 1775 ml 1040 ml Balance 150 ml 1775 ml 1040 ml medications Current Medications Medications Dose Ordered Sig/Red Route Start Time Stop Time Status Last Admin Dose Admin Nitroglycerin 0.4 mg Q5MINP PRN SL 05/23/25 13:30 Morphine Sulfate 2 mg Q30M PRN IV 05/23/25 13:30 Acetaminophen/ Codeine Phosphate 1 tab Q4HP PRN PO 05/23/25 13:30 Aspirin 81 mg DAILY PO 05/24/25 10:00 05/27/25 09:37 81 MG Carvedilol 25 mg BID PO 05/24/25 10:00 05/26/25 21:29 25 MG Metronidazole 100 ml @ 100 mls/hr Q8HR IV 05/24/25 14:00 05/27/25 14:23 100 MLS/HR Levofloxacin 50 ml @ 50 mls/hr Q48H IV 05/26/25 11:15 05/26/25 10:11 50 MLS/HR Sodium Chloride 1,000 ml @ 75 mls/hr [id number] IV 05/25/25 14:15 05/27/25 06:10 75 MLS/HR Amlodipine Besylate 5 mg DAILY PO 05/26/25 10:00 05/26/25 08:56 5 MG Sodium Phosphate 1 tab TIDWM PO 05/25/25 18:00 05/28/25 00:00 05/27/25 12:11 1 TAB Fluconazole 100 ml @ 100 mls/hr DAILY IV 05/27/25 10:00 05/27/25 09:37 100 MLS/HR Diagnostic Test (Pha) 1 strip ACHS 05/26/25 17:00 05/27/25 11:47 1 STRIP Insulin Human Regular HS SC 05/26/25 22:00 05/26/25 21:40 2 UNITS Insulin Human Regular AC SC 05/26/25 17:00 05/27/25 11:56 3 UNITS Dextrose 50 ml UD PRN IV 05/26/25 12:15 objective General: NAD, AAOX3 Chest: lung fernandez clear to auscultation Heart: RRR, no murmur Abdomen: non-distended, no tenderness to palpation, +BS laboratory and microbiology Laboratory Tests 05/27/25 12:39 05/27/25 09:04 Test 05/27/25 09:04 Range/Units Serum Glucose 167 H 74-106 mg/dL Problems(with codes): (1) Intractable abdominal pain (2) Elevated liver function tests (3) Cholelithiasis Prognosis Plan Continue to monitor labs If there is persistent elevation in liver enzymes consider getting an MRCP with a magnet the pacemaker Discontinue hepatotoxic medications as recommended by surgical consult I will follow up patient with you Dietary Evaluation Review Comments: High risk malnutrition Update diet to CCHO-60 renal diet with 65g protein restriction Monitor PO intake to meet 75% of her needs Expected Outcomes/Goals: improved nutriton related lab values controlled DM less uremic symptoms Plan discussed with: Patient SAUNDRA GASPAR MD May 27, 2025 16:31
[2025-05-28] VITALS (8 sets, daily range): BP systolic 107–164; BP diastolic 44–71; PULSE 62–76; RESP 15–20; TEMP 97.1–98.7; O2SAT 94–97
[2025-05-28 06:20] LABS: Hematocrit 33.2 % (36.0-46.0); Hemoglobin 10.9 g/dL (12.2-16.2); Mean Corpuscular Hemoglobin 28.8 pg (28.0-32.0); Mean Corpuscular Volume 87.5 fL (80.0-100.0); Nucleated Red Blood Cells % 0.1 %
[2025-05-28 06:46] LABS: Anion Gap 10 (5-15); BUN/Creatinine Ratio 18.0 (10.0-20.0); Bilirubin, Total 0.8 mg/dL (0.2-1.0); Carbon Dioxide 25 mmol/L (20-31); Chloride 101 mmol/L (98-107); Sodium 136 mmol/L (136-145)
[2025-05-28 06:50] LABS: Alanine Aminotransferase 90 U/L (7-40); Albumin 3.1 g/dL (3.2-4.8); Alkaline Phosphatase 394 U/L (46-116); Blood Urea Nitrogen 27 mg/dL (9-23); Calcium 8.6 mg/dL (8.7-10.4); Glucose 119 mg/dL (74-106); Potassium 3.1 mmol/L (3.5-5.1); Total Protein 5.6 g/dL (5.7-8.2)
--- NOTE | 2025-05-28 10:59 | DVHPN2 ---
Subjective Patient denies any symptoms Reviewed: Care Plan, H&P, Labs, Medications Changes from previous H/P or p: No Changes General: Per HPI Objective Vitals Vital Signs Date Time Temp Pulse Resp B/P (MAP) Pulse Ox O2 Delivery O2 Flow Rate FiO2 05/28/25 10:00 125/69 05/28/25 10:00 69 05/28/25 09:00 98.4 15 97 98.4 05/28/25 08:15 Room Air* 0 21 Intake/Output Intake and Output 05/28/25 07:00 Intake Total 1750 ml Output Total 600 ml Balance 1150 ml Intake Oral 1450 ml IV Total 300 ml Output Urine Total 600 ml # Bowel Movements 1 General Appearance: Alert, Oriented X3, Cooperative, No acute distress HEENT: Atraumatic, PERRLA Lungs: Clear to auscultation, Normal air movement Cardiovascular: Normal S1, Normal S2 Abdomen: Normal bowel sounds, Other (Tenderness with palpation to right upper quadrant) Genitourinary: No Apparent Abnormalities Neuro: Normal gait, Normal speech Skin: Dry, Intact Psych/Mental Status: Mental status NL, Mood NL Medications Current Medications Medications Dose Ordered Sig/Red Route Start Time Stop Time Status Last Admin Dose Admin Nitroglycerin 0.4 mg Q5MINP PRN SL 05/23/25 13:30 Morphine Sulfate 2 mg Q30M PRN IV 05/23/25 13:30 Acetaminophen/ Codeine Phosphate 1 tab Q4HP PRN PO 05/23/25 13:30 Aspirin 81 mg DAILY PO 05/24/25 10:00 05/28/25 09:57 81 MG Carvedilol 25 mg BID PO 05/24/25 10:00 05/27/25 21:42 25 MG Metronidazole 100 ml @ 100 mls/hr Q8HR IV 05/24/25 14:00 05/28/25 06:19 100 MLS/HR Levofloxacin 50 ml @ 50 mls/hr Q48H IV 05/26/25 11:15 05/26/25 10:11 50 MLS/HR Sodium Chloride 1,000 ml @ 75 mls/hr [id number] IV 05/25/25 14:15 05/28/25 08:49 75 MLS/HR Amlodipine Besylate 5 mg DAILY PO 05/26/25 10:00 05/26/25 08:56 5 MG Fluconazole 100 ml @ 100 mls/hr DAILY IV 05/27/25 10:00 05/28/25 09:57 100 MLS/HR Diagnostic Test (Pha) 1 strip ACHS 05/26/25 17:00 05/28/25 06:35 1 STRIP Insulin Human Regular HS SC 05/26/25 22:00 05/27/25 21:53 2 UNITS Insulin Human Regular AC SC 05/26/25 17:00 05/28/25 06:35 2 UNITS Dextrose 50 ml UD PRN IV 05/26/25 12:15 Laboratory Results Laboratory Tests 05/28/25 05:48 Chemistry Test 05/28/25 05:48 Albumin 3.1 g/dL (3.2-4.8) L Calcium Level 8.6 mg/dL (8.7-10.4) L Total Protein 5.6 g/dL (5.7-8.2) L LFT Test 05/28/25 05:48 Alanine Aminotransferase (ALT) 90 U/L (7-40) H Alkaline Phosphatase 394 U/L (46-116) H Aspartate Amino Transferase (AST) 98 U/L (13-40) H Total Bilirubin 0.8 mg/dL (0.2-1.0) Urinalysis Test 05/26/25 05:50 Urine Color Light-orange (Yellow) Urine Clarity Ex.turbid (Clear) Urine pH 5.5 (5.0-9.0) Urine Specific [place] 1.012 (1.001-1.035) Urine Protein Trace (Negative) H Urine Ketones Negative (Negative) Urine Blood Trace /uL (Negative) H Urine Nitrite Negative (Negative) Urine Bilirubin Negative (Negative) Urine Urobilinogen Normal mg/dL (Negative) Urine Leukocyte Esterase 3+ /uL (Negative) Urine RBC 68 /hpf (0 - 4) Urine WBC Clumps Present /hpf (None Seen) Urine Microscopic WBC 809 /HPF (0-5) H Urine Squamous Epithelial Cells Few /hpf (<5) Urine Bacteria None seen /hpf (None Seen) Urine Yeast (Budding) Loaded /hpf (None Seen) Urine Creatinine 46.32 mg/dL (30.0-125.0) Urine Protein/Creatinine Ratio 1.01 Urine Sodium 29 mmol/L (40-220) L Urine Glucose 4+ mg/dL (Normal) H Urine Total Protein 47.0 mg/dL (1-14) H Microbiology Microbiology Date/Time Source Procedure Growth Status 05/24/25 16:00 Voided Urine Urine Culture - Preliminary Resulted 05/24/25 11:40 Blood Blood Culture - Preliminary NO GROWTH AFTER 72 HOURS OF INCUBATION. Resulted Labs and/or images reviewed: Labs reviewed by me, Image(s) reviewed by me Assessment/Plan Assessment/Plan Impression: -status post cholecystectomy -accelerated hypertension -sepsis -acute kidney injury, vasomotor nephropathy -underlying CKD stage IIIB -diabetes mellitus type 2 Plan: Events: LFTs improving. WBC 11. Continues to be hypokalemic. Continue with potassium replacement. -PPI -continue Levaquin and Flagyl -nephrology consultation -further course of care per GI and surgical recommendation -repeat labs in a.m. Total time spent with patient discussing and formulating plan of care: 35 minutes. This medical document was created using an electronic medical record system with [employer] dictation system. Although this document has been carefully reviewed, there may still be some phonetic and typographical errors. These areas are purely typographical due to imperfections of the software programs, and do not reflect any compromise in the patient's medical care. Plan discussed with: Patient, Other (Rn) My Orders Orders - GEORGIA MARCANO NP Procedure Category Date Status Time Potassium Chloride PHA 05/28/25 In Process (Potassium Chloride). 10:15 Complete Blood Count LAB 05/29/25 Verified 05:00 Complete Blood Count LAB 05/30/25 Verified 05:00 Comprehensive LAB 05/29/25 Verified Metabolic Panel 05:00 Comprehensive LAB 05/30/25 Verified Metabolic Panel 05:00 Date of Service: May 28, 2025 Billing Provider: GEORGIA MARCANO NP Common Visit Codes: [id number] INP/OBS CARE(HIGH) GEORGIA MARCANO NP May 28, 2025 10:59
[2025-05-28 11:18] LABS: Hepatitis A Total Antibody Positive (Negative); Hepatitis B Surface Antigen Negative (Negative); Hepatitis C Antibody Negative (Negative)
--- NOTE | 2025-05-28 14:06 | DVHPN2 ---
Progress Note Date Seen: May 28, 2025 Medical Necessity Reason Pt with a Central, PICC or Fol: No Objective vital signs Vital Sign Date Time Temp Pulse Resp B/P (MAP) Pulse Ox O2 Delivery O2 Flow Rate FiO2 05/28/25 12:51 97.7 64 16 144/46 (78) 95 97.7 05/28/25 08:15 Room Air* 0 21 Total Intake and Output 05/27/25 05/27/25 05/28/25 15:00 23:00 07:00 Intake Total 100 ml 1050 ml 600 ml Output Total 600 ml Balance 100 ml 1050 ml 0 ml medications Current Medications Medications Dose Ordered Sig/Red Route Start Time Stop Time Status Last Admin Dose Admin Nitroglycerin 0.4 mg Q5MINP PRN SL 05/23/25 13:30 Morphine Sulfate 2 mg Q30M PRN IV 05/23/25 13:30 Acetaminophen/ Codeine Phosphate 1 tab Q4HP PRN PO 05/23/25 13:30 Aspirin 81 mg DAILY PO 05/24/25 10:00 05/28/25 09:57 81 MG Carvedilol 25 mg BID PO 05/24/25 10:00 05/27/25 21:42 25 MG Metronidazole 100 ml @ 100 mls/hr Q8HR IV 05/24/25 14:00 05/28/25 06:19 100 MLS/HR Levofloxacin 50 ml @ 50 mls/hr Q48H IV 05/26/25 11:15 05/28/25 12:51 50 MLS/HR Sodium Chloride 1,000 ml @ 75 mls/hr [id number] IV 05/25/25 14:15 05/28/25 08:49 75 MLS/HR Amlodipine Besylate 5 mg DAILY PO 05/26/25 10:00 05/26/25 08:56 5 MG Fluconazole 100 ml @ 100 mls/hr DAILY IV 05/27/25 10:00 05/28/25 09:57 100 MLS/HR Diagnostic Test (Pha) 1 strip ACHS 05/26/25 17:00 05/28/25 12:37 1 STRIP Insulin Human Regular HS SC 05/26/25 22:00 05/27/25 21:53 2 UNITS Insulin Human Regular AC SC 05/26/25 17:00 05/28/25 12:39 3 UNITS Dextrose 50 ml UD PRN IV 05/26/25 12:15 laboratory and microbiology Laboratory Tests 05/28/25 05:48 Test 05/28/25 05:48 Range/Units Serum Glucose 119 H 74-106 mg/dL Problem List/Assessment/Plan Problem List/Assessment/Plan 05/24/25 hida scan reviewed, drain with minimal non bilious drainage, drain removed without difficulty. will request nephrology consult due to abnormal renal function tests. 05/27/25 FEELS VERY WELL, HAS BEEN AMBULATING, NORMAL BOWEL AND BLADER FUNCTION, TOLERATING PO WITHOUT NAUSEA OR VOMITING, KIDNEY FUNCTION SEEMS TO BE IMPROVING WITH HYDRATION, LIVER FUNCTION NUMBERS CONTINUE TO WORSEN, SUSPECT LIVER TOXICITY OF LIPIRTOR COMBINED WITH INFECTION BUT NEED TO R/O CHOLEDOCHOLITHIASIS S/P LAPAROSCOPIC CHOLECYSTECTOMY. CONTINUE TO MONITOR CLOSELY. 05/27/25 FEELS WELL, HER LIVER FUNCTION IS WORSENING AND SHE IS ON LEVOFLOXACIN,CARVEDILOL,AND FLUCONAZOLE ALL OF WHICH ARE HEPATOTOXIC, RECOMMEND CHANGING HER MEDICATIONS 05/28/25 doing well, ambulating, voiding,passing flatus/"surgically"stable and fully recovered Plan discussed with: Patient Dietary Evaluation Review Comments: High risk malnutrition [facility] diet with 65g protein restriction Monitor PO intake to meet 75% of her needs Expected Outcomes/Goals: improved nutriton related lab values controlled DM less uremic symptoms CHANNING HERNANDEZ MD May 28, 2025 14:06
[2025-05-28] MEDS: POTASSIUM CHLORIDE 40 MEQ, LIDOCAINE 1% (LOCAL ANESTH.) 4 ML in SODIUM CHL 0.9% 250 ML IV ONE (14:09)
[2025-05-29 01:00] VITALS: BP 134/54; PULSE 76; RESP 20; TEMP 97.9; O2SAT 96
[2025-05-29 05:00] VITALS: BP 141/76; PULSE 77; RESP 22; TEMP 98.5; O2SAT 95
[2025-05-29 06:10] LABS: Hematocrit 31.9 % (36.0-46.0); Hemoglobin 10.8 g/dL (12.2-16.2); Mean Corpuscular Hemoglobin 30.1 pg (28.0-32.0); Mean Corpuscular Volume 88.4 fL (80.0-100.0); Nucleated Red Blood Cells % 0.0 %
[2025-05-29 06:33] LABS: Anion Gap 10 (5-15); BUN/Creatinine Ratio 15.5 (10.0-20.0); Blood Urea Nitrogen 20 mg/dL (9-23); Carbon Dioxide 22 mmol/L (20-31); Chloride 105 mmol/L (98-107); Potassium 3.8 mmol/L (3.5-5.1); Sodium 137 mmol/L (136-145)
[2025-05-29 06:34] LABS: Bilirubin, Total 0.6 mg/dL (0.2-1.0)
[2025-05-29 06:35] LABS: Alanine Aminotransferase 62 U/L (7-40); Albumin 3.0 g/dL (3.2-4.8); Alkaline Phosphatase 342 U/L (46-116); Calcium 8.3 mg/dL (8.7-10.4); Glucose 121 mg/dL (74-106); Total Protein 5.5 g/dL (5.7-8.2)
[2025-05-29 08:00] VITALS: PULSE 74; RESP 18; O2SAT 95
[2025-05-29 09:17] VITALS: BP 131/71; PULSE 74; RESP 18; TEMP 97.9; O2SAT 97
--- NOTE | 2025-05-29 11:55 | DVHDS2 ---
Discharge Summary Date of Admission May 23, 2025 at 13:11 Date of Discharge: May 29, 2025 Admitting Diagnosis Biliary drainage Labs/Diagnostic Data: Laboratory Results Test 05/29/25 11:03 05/29/25 05:40 05/28/25 05:48 05/27/25 00:30 POC Glucose 135 mg/dl (70-106) White Blood Count 10.5 10^3/uL (4.4-10.8) Red Blood Count 3.60 10^6/uL (4.0-5.20) Hemoglobin 10.8 g/dL (12.2-16.2) Hematocrit 31.9 % (36.0-46.0) Mean Corpuscular Volume 88.4 fL (80.0-100.0) Mean Corpuscular Hemoglobin 30.1 pg (28.0-32.0) Mean Corpuscular Hemoglobin Concent 34.0 g/dL (32.0-36.0) Red Cell Distribution Width 14.5 % (11.8-14.3) Platelet Count 390 10^3/uL (140-450) Mean Platelet Volume 7.9 fL (6.9-10.8) Neutrophils (%) (Auto) 80.0 % (37.0-80.0) Lymphocytes (%) (Auto) 9.9 % (10.0-50.0) Monocytes (%) (Auto) 9.1 % (0.0-12.0) Eosinophils (%) (Auto) 0.7 % (0.0-7.0) Basophils (%) (Auto) 0.3 % (0.0-2.0) Neutrophils # (Auto) 8.4 10 ^3/uL (1.6-8.6) Lymphocytes # (Auto) 1.0 10 ^3/uL (0.4-5.4) Monocytes # (Auto) 1.0 10 ^3/uL (0-1.3) Eosinophils # (Auto) 0.1 10 ^3/uL (0-0.8) Basophils # (Auto) 0 10 ^3/uL (0-0.2) Nucleated Red Blood Cells 0.0 % Sodium Level 137 mmol/L (136-145) Potassium Level 3.8 mmol/L (3.5-5.1) Chloride Level 105 mmol/L (98-107) Carbon Dioxide Level 22 mmol/L (20-31) Anion Gap 10 (5-15) Blood Urea Nitrogen 20 mg/dL (9-23) Creatinine 1.29 mg/dL (0.550-1.02) Glomerular Filtration Rate Calc 40 mL/min (>90) BUN/Creatinine Ratio 15.5 (10.0-20.0) Serum Glucose 121 mg/dL (74-106) Calcium Level 8.3 mg/dL (8.7-10.4) Total Bilirubin 0.6 mg/dL (0.2-1.0) Aspartate Amino Transferase (AST) 49 U/L (13-40) Alanine Aminotransferase (ALT) 62 U/L (7-40) Alkaline Phosphatase 342 U/L (46-116) Total Protein 5.5 g/dL (5.7-8.2) Albumin 3.0 g/dL (3.2-4.8) Ferritin 214.4 ng/mL (10-291) Prothrombin Time 14.4 sec (9.3-11.8) Prothrombin Time INR 1.41 (0.9-1.15) Test 05/26/25 05:50 05/25/25 05:17 Urine Color Light-orange (Yellow) Urine Clarity Ex.turbid (Clear) Urine pH 5.5 (5.0-9.0) Urine Specific [place] 1.012 (1.001-1.035) Urine Protein Trace (Negative) Urine Ketones Negative (Negative) Urine Blood Trace /uL (Negative) Urine Nitrite Negative (Negative) Urine Bilirubin Negative (Negative) Urine Urobilinogen Normal mg/dL (Negative) Urine Leukocyte Esterase 3+ /uL (Negative) Urine RBC 68 /hpf (0 - 4) Urine WBC Clumps Present /hpf (None Seen) Urine Microscopic WBC 809 /HPF (0-5) Urine Squamous Epithelial Cells Few /hpf (<5) Urine Bacteria None seen /hpf (None Seen) Urine Yeast (Budding) Loaded /hpf (None Seen) Urine Creatinine 46.32 mg/dL (30.0-125.0) Urine Protein/Creatinine Ratio 1.01 Urine Sodium 29 mmol/L (40-220) Urine Glucose 4+ mg/dL (Normal) Urine Total Protein 47.0 mg/dL (1-14) Hepatitis A Antibody Total Positive (Negative) Hepatitis B Surface Antigen Negative (Negative) Hepatitis B Surface Antibody Negative (Negative) Hepatitis B Core Total Antibody Negative (Negative) Hepatitis C Antibody Negative (Negative) Serum Osmolality 290 mOsm/kg (278-298) Phosphorus Level 2.2 mg/dL (2.4-5.1) Vitamin D 25-Hydroxy 42.1 ng/mL (30.0-100) Parathyroid Hormone (Intact) 63.1 pg/mL (18.4-80.1) Other Laboratory Tests 05/29/25 05:40 Brief Hx & Hospital Course: History of Present Illness Patient is 89 years old woman, recently had a laparoscopic cholecystectomy presented hospital with biliary drainage. Patient states she recently had a laparoscopic cholecystectomy and drain was placed. Patient denies abdominal pain but states having persistent biliary drainage. No fever or chills. No nausea vomiting constipation or diarrhea. Course of hospitalization: Patient was found to be in acute renal failure, sepsis with elevated white blood cell count, as well as LYNNETTE drainage with brown secretions. HIDA scan was found to be without any biliary leak. Patient patient unable to receive MRCP given agent defibrillator, being non compatible. GI consultation was obtained. Patient was found to have yeast in her urine. Patient was started on Diflucan, Levaquin, as well as Flagyl. Patient had an uptake in her LFTs, which is now improving. Renal function is now improved. Patient will be discharged home and follow up with Dr. Mansfield in 2-3 weeks, her PCP in 1-2 weeks, as we will being continued on antibiotic therapy with Flagyl 500 mg p.o. t.i.d. for the next seven days. Patient was agreeable with discharge plan. All questions answered. Physical examination General: Alert and Oriented x3. No acute distress. Well-nourished. Eyes: EOMI. Anicteric. HENT: Moist mucous membranes. Lungs: Clear to auscultation bilaterally. No accessory muscle use. Cardiovascular: Regular rate and rhythm. No murmur. No JVD. Abdomen: Soft, non-tender and non-distended. No palpable masses. Extremities: No edema. Non-tender. Skin: No rashes or lesions. Warm. Neurologic: No focal neurological deficits. CN II-XII grossly intact, but not individually tested. Psychiatric: Cooperative. Appropriate mood and affect. Total time spent with patient discussing and formulating plan of care: 35 minutes. This medical document was created using an electronic medical record system with [employer] dictation system. Although this document has been carefully reviewed, there may still be some phonetic and typographical errors. These areas are purely typographical due to imperfections of the software programs, and do not reflect any compromise in the patient's medical care. Consults/Reason for consult General surgery: Status post laparoscopic cholecystectomy with existing drain General surgery: Elevated LFTs Condition at Discharge: Guarded Final Diagnosis/Problems List Sepsis Secondary diagnosis: -status post cholecystectomy -accelerated hypertension -sepsis -acute kidney injury, vasomotor nephropathy -underlying CKD stage IIIB -diabetes mellitus type 2 -complicated cystitis secondary to Estephania Discharge Disposition: Home Discharge Instruct/Medications Diet: Consistent carbohydrate, Cardiac 2g Na,low cholest Activity: No Restrictions, As Tolerated Follow Up/Referral: Follow up with PCP in 1-2 weeks Follow up with Dr. Mansfield in 2-3 weeks Medications: Flagyl 500 mg p.o. t.i.d. x7 days Continue all home medications Scheduled Amoxicillin & Pot Clavulanate (Augmentin), 500 MG PO BID Aspirin (Aspirin Low Dose), 81 MG PO DAILY Atorvastatin Calcium (Atorvastatin Calcium), 40 MG PO DAILY Carvedilol (Coreg), 1 TAB PO BID, (Reported) Diclofenac Sodium (Topical) (Diclofenac Sodium), 1 APPLIC TOP QID, (Reported) Empagliflozin (Jardiance), 1 TAB PO DAILY, (Reported) Hctz (Hydrochlorothiazide), 1 TAB PO DAILY, (Reported) Metronidazole (Flagyl), 500 MG PO BID Oxybutynin Chloride (Oxybutynin Chloride), 1 TAB PO DAILY, (Reported) Pantoprazole Sodium (Pantoprazole Sodium), 40 MG PO DAILY, (Reported) Scheduled PRN Ibuprofen (Ibuprofen), 1 TAB PO TID PRN 36 Discharge Statement: "Patient was advised to return to the ER or call 911 if any headaches, dizziness, shortness of breath, chest pain, abdominal pain, bleeding, fevers, or worsening of medical condition. Patient was counseled about treatment plan, medications, possible side effects, patientverbalized understanding. All questions were answered to the best of my ability. This discharge took greater then 30 minutes in planning, reviewing documentation, counseling the patient, and discussing with other team members." ASSESSMENT ASSESSMENT Assessment Sepsis Date of Service: May 29, 2025 Billing Provider: GEORGIA MARCANO NP Visit Codes: [id number] DISCH DAY >30min GEORGIA MARCANO NP May 29, 2025 11:55
[2025-05-29] MEDS ORDERED: METR-344 PO (11:56)
[2025-05-29 12:57] VITALS: BP 133/68; PULSE 78; RESP 18; TEMP 98.2; O2SAT 98
--- NOTE | 2025-05-29 22:44 | DVHPN2 ---
Progress Note - Dictate Date Seen: May 29, 2025 (Late entryTime of visit 1:00 p.m.) Medical Necessity Reason Pt with a Central, PICC or Fol: No Subjective No new complaints Patient resting comfortably Liver enzymes are trending down Patient is ambulating tolerating diet and abdominal pain has resolved Patient stated she had a pacemaker vital signs Vital Sign Date Time Temp Pulse Resp B/P (MAP) Pulse Ox O2 Delivery O2 Flow Rate FiO2 05/29/25 12:57 98.2 78 18 133/68 (89) 98 98.2 05/29/25 08:00 Room Air* 0 21 Total Intake and Output 05/28/25 05/28/25 05/29/25 15:00 23:00 07:00 Intake Total 1350 ml 725 ml 1450 ml Output Total 500 ml 300 ml Balance 1350 ml 225 ml 1150 ml objective General: NAD, AAOX3 Chest: lung fernandez clear to auscultation Heart: RRR, no murmur Abdomen: non-distended, no tenderness to palpation, +BS laboratory and microbiology Laboratory Tests 05/29/25 05:40 Test 05/29/25 05:40 Range/Units Serum Glucose 121 H 74-106 mg/dL Problems(with codes): (1) Elevated liver function tests (2) Intractable abdominal pain (3) Cholelithiasis Prognosis Plan Advance diet as tolerated Discharge planning in progress Outpatient follow up with GI Services in 4-6 weeks or as needed to monitor liver function Dietary Evaluation Review Comments: High risk malnutrition Update diet to CCHO-60 renal diet with 65g protein restriction Monitor PO intake to meet 75% of her needs Expected Outcomes/Goals: improved nutriton related lab values controlled DM less uremic symptoms Plan discussed with: Patient SAUNDRA GASPAR MD May 29, 2025 22:44
== END 2025-05-29 14:45 | disposition home or self-care (01) | DRG 871 ==
LOC: CENTRAL 13:11
PROVIDERS: ADMIT Nurse Practitioner Acute Care; ATTEND Nurse Practitioner Acute Care
DX: A41.9 Sepsis, unspecified organism (principal); N17.0 Acute kidney failure with tubular necrosis; E87.1 Hypo-osmolality and hyponatremia; B37.41 Candidal cystitis and urethritis; N18.32 Chronic kidney disease, stage 3b; E11.22 Type 2 diabetes mellitus with diabetic chronic kidney disease; D64.9 Anemia, unspecified; I12.9 Hypertensive chronic kidney disease with stage 1 through stage 4 chronic kidney disease, or unspecified chronic kidney disease; E87.6 Hypokalemia; R65.20 Severe sepsis without septic shock; Z90.49 Acquired absence of other specified parts of digestive tract; Z88.0 Allergy status to penicillin; Z88.6 Allergy status to analgesic agent; Z79.1 Long term (current) use of non-steroidal anti-inflammatories (NSAID); Z79.2 Long term (current) use of antibiotics; Z79.84 Long term (current) use of oral hypoglycemic drugs; Z79.82 Long term (current) use of aspirin; Z79.899 Other long term (current) drug therapy
CPT/HCPCS: 36415; 71045; 74176; 76705; 76775; 78226; 80053; 81001; 82306; 82570; 82728; 82962; 83930; 83970; 84100; 84156; 84300; 85025; 85610; 86038; 86704; 86706; 86708; 86803; 87040; 87086; 87088; 87186; 87340; G0378; J1450; J1815; J1956; J2003; J3490